=== PATIENT | female | born 1935 | race Caucasian/White ===

== ENCOUNTER 2023-01-24 10:10 | Emergency (ER) | payer MEDICARE, BC, SELFPAY ==
--- NOTE | ~2023-01-24 | CT_ITS ---
EXAMINATION: CT abdomen pelvis w IV con CLINICAL INFORMATION: Reason for Exam bilateral lower abdominal pain, diarrhea COMPARISON: Prior CT scan from 2013 TECHNIQUE: Multidetector volumetric imaging was performed from the superior aspect of the liver through the pubic symphysis 85 mL Omnipaque 350 injected Sagittal and coronal reformatted images were obtained on the technologist's workstation. This CT examination was performed using dose optimization techniques as appropriate, variously including the following: *Automated exposure control *Adjustment of mA and/or kV according to patient size (this includes techniques or standardized protocols for targeted exams where dose is matched to indication/reason for exam; i.e. extremities or head) *Use of iterative reconstruction technique DLP: 467 mGy-cm FINDINGS: LOWER THORAX: There is scar, subsegmental atelectasis at left lung base. Included lung bases otherwise are clear. HEPATOBILIARY: There is tiny 4 mm hypodensity in the right lobe of the liver, too small to characterize, commonly found to be evolving cysts. No suspicious solid liver mass. GALLBLADDER: Gallbladder unremarkable. SPLEEN: Spleen is normal in size. PANCREAS: No focal mass or ductal dilatation. STOMACH AND GASTROINTESTINAL TRACT: Stomach is grossly unremarkable. There are suture line in the colon from prior hemicolectomy. There is fat stranding surrounding loops of small bowel in the left lower quadrant adjacent to the ileocolic anastomosis concerning for ileitis which could be infection or inflammatory. There is no evidence of obstruction or dilatation of the small bowel loops. Please refer to Wilkes image. There is no abscess or loculated the fluid collection. ADRENALS: No adrenal nodules. KIDNEYS/URETERS: No hydronephrosis, stones or solid mass lesions. URINARY BLADDER: Partially decompressed. PELVIC VISCERA: Unremarkable PERITONEUM: There is no free air or fluid. LYMPH NODES: No lymphadenopathy. VASCULAR:Abdominal aorta normal in size, no aneurysm found. BONES, ABDOMINAL WALL AND SOFT TISSUES: Spondylosis of dorsal spine. No fractures. No destructive bone lesion. CT/CT abdomen pelvis w IV con IMPRESSION: * There is fat stranding surrounding loops of small bowel in the left lower quadrant adjacent to the ileocolic anastomosis concerning for ileitis which could be infection or inflammatory. There is no evidence of obstruction or abscess. Clinical correlation and follow-up recommended. * Postsurgical changes from prior hemicolectomy. * Other noncritical findings include spondylosis of the dorsal spine, tiny hypodensity in the liver too small to characterize, commonly found to be evolving cysts, scarring/subsegmental atelectasis at left lung base..
[2023-01-24 11:27] VITALS: BP 151/87; PULSE 88; RESP 16; TEMP 36.4; O2SAT 97; BMI 26.6
--- NOTE | 2023-01-24 11:30 | ED.GENADULT ---
HPI - General Adult General Chief complaint: Abdominal Pain Stated complaint: abd pain Time Seen by Provider: 01/24/23 11:41 Source: patient Mode of arrival: ambulatory Limitations: no limitations History of Present Illness HPI narrative: Patient is an 87-year-old female with history of colon cancer in remission, hysterectomy, parotid tumor removal, frequent UTIs presenting with lower abdominal pain and diarrhea. Patient reports that she recently moved to the area from [place], does not have a primary care provider established this area yet. One week ago began to have intermittent isolated episodes of diarrhea. Last night developed lower abdominal pain and diarrhea approximately 4 times per hour. States initially stool was soft, then progressed to watery diarrhea. Reports urge to have a bowel movement but has not had diarrhea recently this morning. Denies fevers. Reports nausea but denies vomiting. Denies hematochezia or melena. Describes pain as similar to when she had adhesions following her hysterectomy. Recently took Cipro in October for UTI. He denies chest pain or shortness of breath. Denies weakness, dizziness, syncope. Denies dysuria, hematuria, any other urinary symptoms. Denies back or flank pain. Has been able to pass gas. MD complaint: Lower abdominal pain, diarrhea Onset (ago): hour(s) Location: abdomen Radiation: non-radiation Severity: moderate Severity scale (1-10): 6 Quality: stabbing Pain Consistency: constant Relieving factors: none Exacerbating factors: none Associated symptoms: nausea/vomiting (Reports nausea, denies vomiting, reports diarrhea) Treatments prior to arrival: none Related Data Previous Rx's Medication Instructions Recorded ciprofloxacin HCl 250 mg tablet 250 mg PO BID #6 tabs 01/24/23 (Cipro) Allergies Allergy/AdvReac Type Severity Reaction Status Date / Time cephalexin [From Keflex] Allergy Unknown Verified 01/24/23 11:27 clindamycin Allergy Unknown Verified 01/24/23 11:27 erythromycin base Allergy Unknown Verified 01/24/23 11:27 mirabegron Allergy Unknown Verified 01/24/23 11:27 nitrofurantoin Allergy Unknown Verified 01/24/23 11:27 [From Macrodantin] Sulfa (Sulfonamide Allergy Unknown Verified 01/24/23 11:27 Antibiotics) Jmvffik-[id number]-[id number] Reductase AdvReac Fatigued Verified 01/24/23 11:24 Inhibitor Review of Systems Review of Systems: As per HPI. Yes all other systems are reviewed and are negative Constitutional: Constitutional: Reports as per HPI [facility] Social History Social History Advance Directives: No Physical Exam ED Vital Signs: Vital Signs - 24 hr 01/24/23 11:27 01/24/23 15:03 Temperature 97.6 F Pulse Rate 88 79 Respiratory Rate 16 14 Blood Pressure 151/87 H 136/58 L Pulse Oximetry 97 98 Oxygen Delivery Method Room Air BMI result Body Mass Index 26.6 Vital signs have been reviewed and appear to be correct. Blood pressure elevated. Heart rate normal. Respiratory rate normal. Temperature normal. Oxygen saturation normal. Const General: cooperative, healthy appearing and no acute distress Orientation/consciousness: oriented to person, oriented to place, oriented to time and patient oriented x3 Limitations: no limitations HENMT Head: Yes normocephalic and Yes atraumatic Ears: external ears normal General nose exam: Normal external nose present Mouth: oropharynx normal and moist mucous membranes Throat: Yes uvula midline Eyes Pupils: Equal, round and reactive pupils present Neck Neck: Yes normal visual inspection and Yes supple Resp Effort & Inspection: normal respiratory effort and able to speak in complete sentences Auscultation: clear to auscultation bilaterally Cardio Rate: regular rate Rhythm: regular rhythm Heart sounds: S1 normal heart sound present and S2 normal heart sound present GI Inspection: Yes normal to inspection Palpation (GI): Soft to palpation, Tenderness to palpation present (GI) in the LLQ and in the RLQ, no guarding and No Rebound tenderness present Auscultation: normoactive bowel sounds General: Yes no CVA tenderness Back/Spine/Pelvis Back: no CVA tenderness Skin General skin exam: elasticity normal and turgor normal Neuro General: oriented to person, oriented to place, oriented to time, patient oriented x3, moves all extremities, no focal motor deficits and CN's II-XI intact bilaterally Cranial nerves: Yes Equal, round and reactive pupils present Cognition (Neuro): normal cognition Extrem General: Yes full ROM, Yes no pedal edema and Yes no calf tenderness Psych Mental Status: mental status grossly normal Affect: normal affect Thought process: Normal thought process present Course Course Course Narrative: RME- 87-year-old female presents for evaluation of periumbilical abdominal pain and diarrhea. She reports the diarrhea initially side 1 week ago but got much worse last night. Denies any recent antibiotic use. Patient is well-appearing in triage, labs and UA ordered. 13:30 UA positive for 3+ leukocytes, >50 WBCs, awaiting CT results. 14:34 FINDINGS: LOWER THORAX: There is scar, subsegmental atelectasis at left lung base. Included lung bases otherwise are clear. HEPATOBILIARY: There is tiny 4 mm hypodensity in the right lobe of the liver, too small to characterize, commonly found to be evolving cysts. No suspicious solid liver mass. GALLBLADDER: Gallbladder unremarkable. SPLEEN: Spleen is normal in size. PANCREAS: No focal mass or ductal dilatation. STOMACH AND GASTROINTESTINAL TRACT: Stomach is grossly unremarkable. There are suture line in the colon from prior hemicolectomy. There is fat stranding surrounding loops of small bowel in the left lower quadrant adjacent to the ileocolic anastomosis concerning for ileitis which could be infection or inflammatory. There is no evidence of obstruction or dilatation of the small bowel loops. Please refer to Wilkes image. There is no abscess or loculated the fluid collection. ADRENALS: No adrenal nodules. KIDNEYS/URETERS: No hydronephrosis, stones or solid mass lesions. URINARY BLADDER: Partially decompressed. PELVIC VISCERA: Unremarkable PERITONEUM: There is no free air or fluid. LYMPH NODES: No lymphadenopathy. VASCULAR:Abdominal aorta normal in size, no aneurysm found. BONES, ABDOMINAL WALL AND SOFT TISSUES: Spondylosis of dorsal spine. No fractures. No destructive bone lesion. CT/CT abdomen pelvis w IV con IMPRESSION: ? *? There is fat stranding surrounding loops of small bowel in the left lower quadrant adjacent to the ileocolic anastomosis concerning for ileitis which could be infection or inflammatory. There is no evidence of obstruction or abscess. Clinical correlation and follow-up recommended. ? *? Postsurgical changes from prior hemicolectomy. ? *? Other noncritical findings include spondylosis of the dorsal spine, tiny hypodensity in the liver too small to characterize, commonly found to be evolving cysts, scarring/subsegmental atelectasis at left lung base. 15:33 Awaiting results of magnesium add on. 16:17 Magnesium is within normal limits. Feel patient is stable for discharge home. Will prescribe Cipro for UTI as patient states this is typically what she uses and works well for her. Instructed patient to ensure adequate intake of fluids with electrolytes. Instructed patient to follow-up with PCP this week. Return precautions discussed at bedside, all results discussed and all questions answered, patient agreeable to plan. Medications Administered Discontinued Medications Generic Name Dose Route Start Last Admin Trade Name Swapna PRN Reason Stop Dose Admin Iohexol 100 ml 01/24/23 13:06 01/24/23 13:07 Iohexol 350 Mg/Ml 100 Ml Infus..Btl IV 01/24/23 13:07 85 ml ONCE ONE Administration Ondansetron HCl 4 mg 01/24/23 12:03 01/24/23 12:13 Ondansetron Odt 4 Mg Tab.Rapdis TRANSLINGU 01/24/23 12:04 4 mg ONCE ONE Administration Medical Decision Making Medical Decision Making [facility] Narrative: Patient is an 87-year-old female with history of colon cancer in remission, hysterectomy, parotid tumor removal, frequent UTIs presenting with lower abdominal pain and diarrhea. On exam patient is awake, A+Ox3, in no acute distress, elevated BP, otherwise VS WNL, LS CTA throughout, abdomen soft, TTP bilateral lower quadrants. Concern for diverticulitis, UTI, C. diff, malignancy/mass. Less likely appendicitis. Unlikely AAA rupture, mesenteric ischemia, perforated viscous. Plan: labs, UA, GI panel, C. diff, CT abdomen pelvis Please refer to course for remaining clinical decision making. Differential Diagnosis Differential Diagnoses: The differential diagnosis associated with the presentation includes Asn above. Admission/Observation Consideration of admission/observation: Escalation of care including admission/observation considered Lab Data [facility] Lab Attestation statement: I reviewed the patient's lab results. 01/24/23 11:54 01/24/23 11:54 Labs: Lab Results 01/24/23 01/24/23 01/24/23 Range/Units 11:54 11:54 13:24 WBC 6.4 (4.8-10.8) X10*3/uL RBC 4.23 (4.20-5.50) X10*6/uL Hgb 13.5 (12.0-16.0) g/dl Hct 38.3 (37.0-47.0) % MCV 90.5 (80.0-98.0) fL MCH 31.9 (27.0-33.0) pg MCHC 35.2 H (31.0-35.0) g/dl RDW 13.3 (11.0-16.0) % Plt Count 258 (160-400) X10*3/uL MPV 9.2 L (9.4-12.3) fL Immature Gran % (Auto) 0.2 (0.0-0.4) % Neut % (Auto) 74.4 H (45-73) % Lymph % (Auto) 15.7 L (20-40) % [place] % (Auto) 7.5 (2-11) % Eos % (Auto) 1.9 (0-4) % Baso % (Auto) 0.3 (0-2) % Lymph # (Auto) 1.0 L (1.2-4.9) X10*3/uL [place] # (Auto) 0.5 (0.1-1.2) X10*3/uL Eos # (Auto) 0.1 (0.0-0.4) X10*3/uL Baso # (Auto) 0.0 (0.0-0.2) X10*3/uL Abs Immat Gran (auto) 0.01 (0.00-0.03) X10*3/uL Absolute Neuts (auto) 4.7 (2.0-8.3) x10*3/uL Absolute Nucleated RBC 0.000 (0.0-0.012) X10*3/uL Nucleated RBC % (auto) 0.0 (0.0-0.2) /100WBC Sodium 139 (135-145) mmol/L Potassium 4.3 (3.3-5.1) mmol/L Chloride 105 (96-108) mmol/L Carbon Dioxide 24 (22-29) mmol/L Anion Gap 14 (12-20) BUN 13 (9-16) mg/dL Creatinine 0.59 (0.5-1.4) mg/dL Estim Creat Clear Calc 63.3 Estimated GFR > 60 Random Glucose 95 (60-115) mg/dL Calcium 9.2 (8.4-10.2) mg/dL Magnesium 1.8 (1.6-2.6) mg/dL Total Bilirubin 1.1 H (0.0-1.0) mg/dL AST 17 (5-31) U/L ALT 14 (0-31) U/L Alkaline Phosphatase 57 (39-117) U/L Total Protein 6.3 L (6.5-8.0) g/dL Albumin 3.9 (3.5-5.0) g/dL Lipase 63 (8-78) U/L Urine Color Yellow Urine Appearance Cloudy Urine pH 7.5 (5.0-9.0) Ur Specific [place] 1.020 (1.005-1.025) Urine Protein Negative (Neg-Trace) mg/dL Urine Glucose (UA) Negative (Negative) mg/dL Urine Ketones Negative (Negative) mg/dL Urine Blood Trace H (Negative) Urine Nitrite Negative (Negative) Ur Leukocyte Esterase Large (3+) H (Negative) Urine RBC 0-2 (0-2) /HPF Urine WBC >50 H (0-5) /HPF Ur Squamous Epith Cells 0-2 (0-2) /HPF Urine Bacteria Trace (None Seen) Hyaline Casts 0-2 (0-2) /LPF Independent Interpretation I performed an independent interpretation of an: CT Scan Interpretation: I independently reviewed the CT scan and agree with the radiologist's interpretation. External Record Review External record reviewed: Inpatient record, Office record and Outpatient record Discharge Plan Discharge Clinical Impression: Urinary tract infection, Ileitis Patient Disposition: Home, Self-Care Instructions: Urinary Tract Infection in Women (DC), Acute Diarrhea (ED) Additional Instructions: Your urinalysis showed evidence of a urinary tract infection. You are being treated with an antibiotic, please take the full course of medication as prescribed. Your CT scan shows evidence of ileitis which is inflammation of your small intestine. Please be sure to drink plenty of fluids with electrolytes such as Gatorade, Powerade, or Pediatlyte. Return to the emergency department if you develop worsening pain, persistent diarrhea, fever 100.4? F or greater, back or flank pain, inability to urinate, chest pain, shortness of breath, dizziness or lightheadedness, fainting, or any other concerning symptoms. Prescriptions: New ciprofloxacin HCl [Cipro] 250 mg tablet 250 mg PO BID Qty: 6 0RF Referrals: [facility] [Provider Group]
[2023-01-24 11:58] LABS: MANUAL DIFF FLAG NO
[2023-01-24 11:59] LABS: Basophils Percent Auto 0.3 % (0-2); Eosinophils Absolute Auto 0.1 X10*3/uL (0.0-0.4); Eosinophils Percent Auto 1.9 % (0-4); Hematocrit 38.3 % (37.0-47.0); Hemoglobin 13.5 g/dl (12.0-16.0); Imm Gran Abs Auto 0.01 X10*3/uL (0.00-0.03); Imm Gran Pct Auto 0.2 % (0.0-0.4); Lymphocytes Percent Auto 15.7 % (20-40); Mean Corpuscular HGB Conc 35.2 g/dl (31.0-35.0); Mean Corpuscular Hemoglobin 31.9 pg (27.0-33.0); Mean Corpuscular Volume 90.5 fL (80.0-98.0); Mean Platelet Volume 9.2 fL (9.4-12.3); Monocytes Absolute Auto 0.5 X10*3/uL (0.1-1.2); Monocytes Percent Auto 7.5 % (2-11); Neutrophils Absolute Auto 4.7 x10*3/uL (2.0-8.3); Neutrophils Percent Auto 74.4 % (45-73); Platelet Count 258 X10*3/uL (160-400); Red Blood Count 4.23 X10*6/uL (4.20-5.50); Red Cell Distribution Width 13.3 % (11.0-16.0); White Blood Count 6.4 X10*3/uL (4.8-10.8)
[2023-01-24] MEDS: Ondansetron ODT 4 MG TAB.RAPDIS TRANSLINGU (12:13)
[2023-01-24 12:18] LABS: Alanine Aminotransferase 14 U/L (0-31); Albumin Level 3.9 g/dL (3.5-5.0); Alkaline Phosphatase 57 U/L (39-117); Anion Gap 14 (12-20); Aspartate Amino Transferase 17 U/L (5-31); Bilirubin Total 1.1 mg/dL (0.0-1.0); Blood Urea Nitrogen 13 mg/dL (9-16); Calcium 9.2 mg/dL (8.4-10.2); Carbon Dioxide 24 mmol/L (22-29); Chloride 105 mmol/L (96-108); Creatinine Clr Calc Pharmacy 63.3; Estimated Glomerular Filt Rate > 60; Glucose Random 95 mg/dL (60-115); Lipase 63 U/L (8-78); Potassium 4.3 mmol/L (3.3-5.1); Sodium 139 mmol/L (135-145); Total Protein 6.3 g/dL (6.5-8.0)
[2023-01-24] MEDS: iohexoL 350 MG/ML 100 ML INFUS..BTL IV (13:07)
[2023-01-24 13:35] LABS: Appearance Urine Cloudy; Color Urine Yellow; Glucose Urine UA Negative (Negative); Leukocyte Esterase Urine Large (3+) (Negative); Nitrite Urine Negative (Negative); PH 7.5 (5.0-9.0); UMIC TRIGGER UACC YES; Urine Blood Trace (Negative); Urine Ketones Negative (Negative); Urine Protein Negative (Neg-Trace)
[2023-01-24 13:37] LABS: Bacteria Urine Trace (None Seen); Hyaline Casts Urine 0-2 /LPF (0-2); RBC Urine 0-2 /HPF (0-2); Squamous Epithelial Cell Urine 0-2 /HPF (0-2); UACC Culture Trigger YES; WBC Urine >50 /HPF (0-5)
[2023-01-24 15:03] VITALS: BP 136/58; PULSE 79; RESP 14; O2SAT 98
[2023-01-24 16:11] LABS: Magnesium 1.8 mg/dL (1.6-2.6)
== END 2023-01-24 16:33 | disposition home or self-care (01) ==
PROVIDERS: Physician Assistant; Registered Nurse Emergency; Emergency Provider Internal Medicine
DX: N39.0 Urinary tract infection, site not specified (principal); B96.20 Unspecified Escherichia coli [E. coli] as the cause of diseases classified elsewhere; K52.9 Noninfective gastroenteritis and colitis, unspecified; Z87.440 Personal history of urinary (tract) infections
CPT/HCPCS: 36415; 74177; 80053; 81001; 83690; 83735; 85025; 87086; 87088; 87186; 99284; Q9967

== ENCOUNTER 2023-04-26 11:33 | Outpatient (REF) | payer MEDICARE, BC, SELFPAY ==
[2023-04-26 11:55] LABS: MANUAL DIFF FLAG NO
[2023-04-26 12:23] LABS: Basophils Percent Auto 0.9 % (0-2); Eosinophils Absolute Auto 0.1 X10*3/uL (0.0-0.4); Hematocrit 38.8 % (37.0-47.0); Hemoglobin 13.5 g/dl (12.0-16.0); Imm Gran Abs Auto 0.01 X10*3/uL (0.00-0.03); Imm Gran Pct Auto 0.2 % (0.0-0.4); Lymphocytes Absolute Auto 1.3 X10*3/uL (1.2-4.9); Mean Corpuscular HGB Conc 34.8 g/dl (31.0-35.0); Mean Corpuscular Hemoglobin 31.9 pg (27.0-33.0); Mean Corpuscular Volume 91.7 fL (80.0-98.0); Mean Platelet Volume 10.4 fL (9.4-12.3); Monocytes Absolute Auto 0.5 X10*3/uL (0.1-1.2); Monocytes Percent Auto 12.2 % (2-11); Neutrophils Absolute Auto 2.4 x10*3/uL (2.0-8.3); Neutrophils Percent Auto 54.7 % (45-73); Platelet Count 285 X10*3/uL (160-400); Red Blood Count 4.23 X10*6/uL (4.20-5.50); Red Cell Distribution Width 12.2 % (11.0-16.0); White Blood Count 4.3 X10*3/uL (4.8-10.8)
[2023-04-26 12:24] LABS: Appearance Urine Clear; Color Urine Yellow; Glucose Urine UA Negative (Negative); Leukocyte Esterase Urine Large (3+) (Negative); Nitrite Urine Negative (Negative); Specific Gravity - Urine <= 1.005 (1.005-1.025); UMIC TRIGGER UACC YES; Urine Blood Negative (Negative); Urine Ketones Negative (Negative); Urine Protein Negative (Neg-Trace)
[2023-04-26 12:39] LABS: Alanine Aminotransferase 15 U/L (0-31); Albumin Level 4.1 g/dL (3.5-5.0); Alkaline Phosphatase 54 U/L (39-117); Anion Gap 13 (12-20); Aspartate Amino Transferase 18 U/L (5-31); Bilirubin Total 0.6 mg/dL (0.0-1.0); Blood Urea Nitrogen 13 mg/dL (9-16); Calcium 10.2 mg/dL (8.4-10.2); Carbon Dioxide 26 mmol/L (22-29); Chloride 104 mmol/L (96-108); Cholesterol 228 mg/dL (<200); Estimated Glomerular Filt Rate > 60; Glucose Fasting 86 mg/dL (60-99); HDL Cholesterol 56 mg/dL (>40); LDL Cholesterol Calculated 155 mg/dL (<100); Potassium 4.1 mmol/L (3.3-5.1); Sodium 139 mmol/L (135-145); Triglycerides 89 mg/dL (<150)
[2023-04-26 15:35] LABS: Bacteria Urine 4+ (None Seen); Hyaline Casts Urine 0-2 /LPF (0-2); RBC Urine 0-2 /HPF (0-2); Squamous Epithelial Cell Urine 0-2 /HPF (0-2); UACC Culture Trigger YES
== END 2023-04-26 11:34 | disposition home or self-care (01) ==
LOC: HO.LNP 11:33
PROVIDERS: Visit Provider Internal Medicine
DX: I10 Essential (primary) hypertension (principal); R82.90 Unspecified abnormal findings in urine
CPT/HCPCS: 80053; 80061; 81001; 81003; 85025; 87086; 87088; 87186

== ENCOUNTER 2023-07-16 10:27 | Outpatient (REF) | payer MEDICARE, BC, SELFPAY ==
--- NOTE | ~2023-07-16 | MM_ITS ---
EXAMINATION: MM SCREENING DIGITAL BREAST TOMOSYNTHESIS, BILATERAL CLINICAL INFORMATION: Screening. Asymptomatic. The patient is status post right mastectomy. COMPARISON: Mammography: This study is compared with prior exams dating back to 2018. TECHNIQUE: Digital breast tomosynthesis is performed in both the craniocaudal and mediolateral oblique views along with computer-aided detection (CAD). Synthesized 2D images are generated from the tomosynthesis. FINDINGS: There are scattered areas of fibroglandular density (ACR BI-RADS breast composition Category b). There are no significant masses, abnormal calcifications, or other abnormalities. There is a tissue marker present in the upper outer quadrant of the left breast from prior benign percutaneous biopsy. MM/MM tomosynthesis screening LT IMPRESSION: No mammographic evidence of malignancy. ASSESSMENT: BI-RADS BI-RADS 2 - Benign Findings RECOMMENDATION: Routine annual mammography screening. 1 year F/U This examination should not preclude the clinical evaluation of a suspicious palpable abnormality. This patient's information was entered into a reminder system with a target due date for their next mammogram.
== END 2023-07-16 10:28 | disposition home or self-care (01) ==
LOC: HO.MAMMO 10:27
PROVIDERS: Absent Provider Obstetrics & Gynecology; PCP Internal Medicine; Visit Provider Internal Medicine
DX: Z12.31 Encounter for screening mammogram for malignant neoplasm of breast (principal)
CPT/HCPCS: 77063; 77067

== ENCOUNTER → 2023-07-16 11:30 | Outpatient (BNV) | payer MEDICARE, BC, SELFPAY | PROVIDERS: Absent Provider Obstetrics & Gynecology; PCP Internal Medicine; Visit Provider Radiology Diagnostic Radiology | DX: Z12.31 Encounter for screening mammogram for malignant neoplasm of breast (principal) | CPT/HCPCS: 77063; 77067 ==

== ENCOUNTER 2023-07-20 12:32 | Outpatient (AMB) | payer MEDICARE, BC, SELFPAY ==
--- NOTE | 2023-07-20 12:48 | A.OFFVIS_ITS ---
Intake Intake Visit Reasons: Recurrent UTI's Intake Note: NEW Patient presents today due to Recurrent UTI's: Meds- None Allergies to Antibiotic- No Known Allergies Blood Thinner- None PVR- 15 mL Paperback Machine Operator Required: No Accompanied by: Self / Same As Patient Allergies cephalexin [From Keflex] Allergy (Verified 07/23/23 10:34) Unknown clindamycin Allergy (Verified 07/23/23 10:34) Unknown erythromycin base Allergy (Verified 07/23/23 10:34) Unknown mirabegron Allergy (Verified 07/23/23 10:34) Unknown nitrofurantoin [From Macrodantin] Allergy (Verified 07/23/23 10:34) Unknown Sulfa (Sulfonamide Antibiotics) Allergy (Verified 07/23/23 10:34) Unknown Kkyslht-[id number]-AmJ Reductase Inhibitor Adverse Reaction (Verified 07/23/23 10:34) Fatigued HPI HPI Comments History of Present Illness Details Malena is an 88-year-old female who presents today to the office to establish as a new patient for an evaluation for recurrent UTI's 07/20/2023? Patient has a past medical history significant for uterine cancer. She states that she was referred to the urology office by her PCP. Patient states that she has had urinary tract infections in the past. She has had hysterectomy. The patient complains of intractible urinary urgency/frequency and states she has tried multiple meds in the past. I have discussed sacral neuromodulation as an alternative treatment option regarding this problem. I have reviewed her chart which included a CAT scan of the abdomen/pelvis which noted no kidney stones or solid renal calculi; urinary bladder was partially decompressed. I reviewed the urine culture results from 04/26/2023 revealed serratia >>> 100,000 colonies noted. Plan:? Renal US was ordered. Follow-up in office cystoscopy, pelvic exam at that time. 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 Mother No problems noted. Social History Household Members: None Housing: Assisted Living Facility Alcohol intake: current Alcohol intake frequency: does not drink Patient Tobacco Use Status: Never used Tobacco Current occupational status: retired Review of Systems Const All systems reviewed & are unremarkable except as noted in HPI and below Reports no additional complaints Eyes Reports no additional complaints ENT Reports no additional complaints Card Denies dyspnea Resp Denies cough and Denies dyspnea GI Reports no additional complaints Reports no additional complaints Musc Reports no additional complaints Skin/Breast Denies rash and Denies unusual bruising Neuro Reports no additional complaints Psych Reports no additional complaints Endo Reports no additional complaints [place]/Lymph Reports no additional complaints Aller/Immun Reports no additional complaints Physical Exam Const General: cooperative, healthy appearing and no acute distress Orientation/consciousness: patient oriented x3 HEENT Head: Yes normal to inspection, Yes normocephalic and Yes atraumatic Eyes Conjunctivae: conjunctivae normal Neck Neck: Yes normal visual inspection and Yes trachea midline Chest Chest palpation & inspection: normal inspection of the chest Resp Effort & Inspection: normal respiratory effort Cardio Rate: regular rate GI Inspection: Yes normal to inspection Palpation (GI): Soft to palpation Skin General skin exam: no rashes or lesions noted Neuro General: patient oriented x3 Psych Appearance: grossly normal Results Reviewed Results Reviewed: Date of Service: 01/24/23 EXAMINATION: CT abdomen pelvis w IV con CLINICAL INFORMATION: Reason for Exam bilateral lower abdominal pain, diarrhea COMPARISON: Prior CT scan from 2013 FINDINGS: LOWER THORAX: There is scar, subsegmental atelectasis at left lung base. Included lung bases otherwise are clear. HEPATOBILIARY: There is tiny 4 mm hypodensity in the right lobe of the liver, too small to characterize, commonly found to be evolving cysts. No suspicious solid liver mass. GALLBLADDER: Gallbladder unremarkable. SPLEEN: Spleen is normal in size. PANCREAS: No focal mass or ductal dilatation. STOMACH AND GASTROINTESTINAL TRACT: Stomach is grossly unremarkable. There are suture line in the colon from prior hemicolectomy. There is fat stranding surrounding loops of small bowel in the left lower quadrant adjacent to the ileocolic anastomosis concerning for ileitis which could be infection or inflammatory. There is no evidence of obstruction or dilatation of the small bowel loops. Please refer to Wilkes image. There is no abscess or loculated the fluid collection. ADRENALS: No adrenal nodules. KIDNEYS/URETERS: No hydronephrosis, stones or solid mass lesions. URINARY BLADDER: Partially decompressed. PELVIC VISCERA: Unremarkable PERITONEUM: There is no free air or fluid. LYMPH NODES: No lymphadenopathy. VASCULAR:Abdominal aorta normal in size, no aneurysm found. BONES, ABDOMINAL WALL AND SOFT TISSUES: Spondylosis of dorsal spine. No fractures. No destructive bone lesion. IMPRESSION: * There is fat stranding surrounding loops of small bowel in the left lower quadrant adjacent to the ileocolic anastomosis concerning for ileitis which could be infection or inflammatory. There is no evidence of obstruction or abscess. Clinical correlation and follow-up recommended. * Postsurgical changes from prior hemicolectomy. Urine Culture Final 04/28/23 Organism 1 Serratia marcescens Quant > 100,000 cfu/mL S marcesc M.I.C. RX --------- --- Ceftriaxone <=0.25 S Gentamicin <=1 S Levofloxacin 0.5 S Trimethoprim/Sulfamethoxazole <=20 S Assessment & Plan Assessment & Plan (1) Recurrent UTI: Code(s): N39.0 - Urinary tract infection, site not specified (2) Frequent urinary incontinence: Code(s): N39.498 - Other specified urinary incontinence (3) Urinary urgency: Code(s): R39.15 - Urgency of urination Plan Renal US was ordered. Follow-up in office cystoscopy, pelvic exam at that time Patient Instructions: The patient had an opportunity to ask questions regarding treatment plan. All questions were answered. Imaging, Laboratory studies and physical exam results were discussed and reviewed in detail. No major barriers to understanding were identified. The patient expressed understanding and agreement with the above treatment plan.? ? ? The patient is aware they should contact our office by phone for worsening of their current condition or the appearance of new symptoms. Compliance is encouraged with any medications and followup testing that is ordered.? ? ? It is a privilege to be allowed the opportunity to participate in the urologic care of your patient. If you have any questions or concerns regarding treatment for the above conditions please do not hesitate to contact me. The office telephone contact is [phone].? ? ? This note is constructed in part using voice recognition software. While every effort has been made to ensure accuracy home economist errors may have been included.? ? ? Yours sincerely,? ? ? Milo Callahan MD? Coding Level of Care Code New Pt Level 4 (77518) Diagnoses Recurrent UTI N39.0 Frequent urinary incontinence N39.498 Urinary urgency R39.15
== END 2023-07-20 14:15 | disposition home or self-care (01) ==
PROVIDERS: Visit Provider Urology
DX: N39.0 Urinary tract infection, site not specified (principal); N39.498 Other specified urinary incontinence; R39.15 Urgency of urination
CPT/HCPCS: 99204

== ENCOUNTER → 2023-07-20 12:32 | Outpatient (BNVA) | payer MEDICARE, BC, SELFPAY | PROVIDERS: Visit Provider Urology | DX: N39.0 Urinary tract infection, site not specified (principal); N39.498 Other specified urinary incontinence; R39.15 Urgency of urination | CPT/HCPCS: 99202 ==

== ENCOUNTER 2023-07-23 10:24 | Outpatient (AMB) | payer MEDICARE, BC, SELFPAY ==
[2023-07-23 10:28] VITALS: BP 130/86; BMI 28.3
--- NOTE | 2023-07-23 10:28 | MHC.OFFVIS ---
Intake Vital Signs 07/23/23 10:28 Height 5 ft 3 in Weight 160 lb BMI 28.3 BP 130/86 Intake Visit Reasons: uterine cancer/PCP Referral/DO NOT RS Weekend Anchor Required: No Information Interpreted: non-clinical & clinical Gasoline Service Attendant: Gasoline Service Attendant Present (Roxana Brandt ORDONEZ) Accompanied by: Self / Same As Patient Allergies cephalexin [From Keflex] Allergy (Verified 07/23/23 10:34) Unknown clindamycin Allergy (Verified 07/23/23 10:34) Unknown erythromycin base Allergy (Verified 07/23/23 10:34) Unknown mirabegron Allergy (Verified 07/23/23 10:34) Unknown nitrofurantoin [From Macrodantin] Allergy (Verified 07/23/23 10:34) Unknown Sulfa (Sulfonamide Antibiotics) Allergy (Verified 07/23/23 10:34) Unknown Femgfzy-ZGR-RvA Reductase Inhibitor Adverse Reaction (Verified 07/23/23 10:34) Fatigued Post menopausal: Yes HPI HPI Comments History of Present Illness Details Presenting for follow-up regarding endometrial cancer status post hysterectomy bilateral salpingo-oophorectomy , stage II endometrial cancer 10 years ago. Since then the patient doing well with no complaint, no vaginal bleeding pelvic pain or any other concerns. CT scan done in 02/09 for different indication showed pelvic viscera within normal Last mammogram was couple of weeks ago, report not available No previous DEXA scan [facility] Medical History Depression screen Colon cancer screening Unilateral primary osteoarthritis, unspecified knee Acute cystitis without hematuria H/O malignant neoplasm of parotid gland H/O cancer of uterus Candidiasis, unspecified Essential (primary) hypertension Surgical History Hx of hysterectomy Family History Father No problems noted. Mother No problems noted. Social History Household Members: None Housing: Assisted Living Facility Alcohol intake: current Alcohol intake frequency: does not drink Patient Tobacco Use Status: Never used Tobacco Current occupational status: retired Review of Systems Const All systems reviewed & are unremarkable except as noted in HPI and below Card Reports as per HPI and Reports no additional complaints Resp Reports as per HPI and Reports no additional complaints GI Reports as per HPI and Reports no additional complaints Reports as per HPI Physical Exam Vital Signs: Last Vital Signs BP 130/86 07/23/23 10:28 BMI result Body Mass Index 28.3 Const General: cooperative, healthy appearing and comfortable General: Yes bladder normal to palpation External Female Exam: No lesion Speculum Exam - Vagina: normal appearance of the vagina, normal vaginal discharge and not erythematous Speculum Exam - Cervix: Cervix absent Bimanual exam- vagina & uterus: bladder normal to palpation and uterus absent Bimanual Exam- Adnexa, other: Other (No masses detected) Assessment & Plan Assessment & Plan (1) Gynecologic exam normal: Code(s): Z01.419 - Encounter for gynecological examination (general) (routine) without abnormal findings Plan: Co testing not indicated, mammogram recently done, report not available yet. Counseled the patient about the recommended dietary allowance of 1200 mg of Calcium & 800 IU of vitamin D. Will order DEXA scan . The patient was instructed to perform monthly self-breast exams and to call in case of vaginal bleeding, abdominal pelvic pain or any other concerns can to schedule a 2 week DEXA scan follow-up appointment and an annual exam in a year; All questions answered and the patient verbalized understanding. Orders: Orders XR DEXA axial skeleton Today Z78.0 - Asymptomatic menopausal state Coding Level of Care Code New Pt Prev Care >65yr (85185) Diagnoses Gynecologic exam normal Z01.419
== END 2023-07-23 11:03 | disposition home or self-care (01) ==
LOC: HO.HWS 10:24
PROVIDERS: PCP Internal Medicine; Visit Provider Obstetrics & Gynecology
DX: Z01.419 Encounter for gynecological examination (general) (routine) without abnormal findings (principal)
CPT/HCPCS: G0101

== ENCOUNTER → 2023-07-23 10:24 | Outpatient (BNVA) | payer MEDICARE, BC, SELFPAY | PROVIDERS: PCP Internal Medicine; Visit Provider Obstetrics & Gynecology | DX: Z01.419 Encounter for gynecological examination (general) (routine) without abnormal findings (principal) | CPT/HCPCS: G0101 ==

== ENCOUNTER 2023-08-21 15:50 | Outpatient (REF) | payer MEDICARE, BC, SELFPAY ==
--- NOTE | ~2023-08-21 | US_ITS ---
EXAMINATION: US RETROPERITONEAL LIMITED (RENAL ONLY) CLINICAL INFORMATION: Urinary tract infection, site not specified. COMPARISON: CT abdomen and pelvis 01/24/2023. Ultrasound kidneys and bladder 06/01/2015. TECHNIQUE: Real-time imaging of the kidneys. Limited visualization due to bowel gas. FINDINGS: RIGHT KIDNEY: 10.8 x 4.8 x 5.7 cm (SAG x AP x TRV). No hydronephrosis. No renal calculi. Renal cortical thickness is normal. Limited visualization. LEFT KIDNEY: 10.6 x 5.4 x 5.0 cm (SAG x AP x TRV). No hydronephrosis. No renal calculi. Renal cortical thickness is normal. Limited visualization. Medial 0.6 cm cyst with benign features. There is no indication for follow-up imaging. US/US renal BI IMPRESSION: There is a 0.6 cm left renal cyst with benign features. There is no indication for follow-up imaging.
== END 2023-08-21 15:51 | disposition home or self-care (01) ==
LOC: HO.US 15:50
PROVIDERS: PCP Internal Medicine; Visit Provider Urology
DX: N39.0 Urinary tract infection, site not specified (principal)
CPT/HCPCS: 76775

== ENCOUNTER 2023-08-24 13:29 | Outpatient (REF) | payer MEDICARE, BC, SELFPAY | END 2023-08-24 13:30 | disposition home or self-care (01) | LOC: HO.MAMMO 13:29 | PROVIDERS: PCP Internal Medicine; Visit Provider Obstetrics & Gynecology | DX: Z13.820 Encounter for screening for osteoporosis (principal); Z78.0 Asymptomatic menopausal state | CPT/HCPCS: 77080 ==

== ENCOUNTER 2023-08-29 13:31 | Outpatient (REF) | payer MEDICARE, BC, SELFPAY ==
[2023-08-29 17:18] LABS: Urine Cytology See Pathology rpt
== END 2023-08-29 13:32 | disposition home or self-care (01) ==
LOC: HO.LAB 13:31
PROVIDERS: Visit Provider Urology
DX: N39.498 Other specified urinary incontinence (principal); N39.0 Urinary tract infection, site not specified; R39.15 Urgency of urination
CPT/HCPCS: 51701; 81003; 87086; 87088; 87186; 88112; 99212

== ENCOUNTER 2023-08-29 13:31 | Outpatient (AMB) | payer MEDICARE, BC, SELFPAY ==
--- NOTE | 2023-08-29 13:39 | A.OFFVIS_ITS ---
Intake Intake Visit Reasons: cysto/US Intake Note: Patient presents today for a CYSTOSCOPY Procedure: CANCELLED, due to nitrite positive urine Meds: Estradiol Allergies to Antibiotic: Cephalexin, Clindamycin, Erythromycin base, Nitrofurantoin, Sulfa (Sulfonamide Antibiotics) Blood Thinner: None Edge [place]yer Required: No Accompanied by: Self / Same As Patient Allergies cephalexin [From Keflex] Allergy (Verified 07/23/23 10:34) Unknown clindamycin Allergy (Verified 07/23/23 10:34) Unknown erythromycin base Allergy (Verified 07/23/23 10:34) Unknown mirabegron Allergy (Verified 07/23/23 10:34) Unknown nitrofurantoin [From Macrodantin] Allergy (Verified 07/23/23 10:34) Unknown Sulfa (Sulfonamide Antibiotics) Allergy (Verified 07/23/23 10:34) Unknown Ghrbrhp-GLC-CmD Reductase Inhibitor Adverse Reaction (Verified 07/23/23 10:34) Fatigued Medication List - Last Reconciled 08/29/23 by Milo Callahan MD ciprofloxacin HCl 500 mg PO BID estradiol 0.01%(0.1mg/gram) vaginal lisinopril 10 mg PO DAILY omeprazole 40 mg PO DAILY HPI HPI Comments History of Present Illness Details Malena is an 88-year-old female who presents today FU for recurrent UTI's 08/29/23-- The patient is here for schedu led office cystoscopy. (office cysto ca nceled as urinalysis is nitrite positive) The patient was initially evaluated on 07/20/2023? a new patient for recurrent UTIs and was sent for renal ultrasound. Patient has a past medical history significant for uterine cancer. She has had in total hysterectomy followed by radiation. The patient complains of intractible urinary urgency/frequency and states she has tried multiple meds in the past. I have discussed sacral neuromodulation as an alternative treatment option regarding this problem. I have reviewed renal ultrasound--kidneys within normal notes Pelvic examination no significant prolapse noted. Catheterized urine 60 mL. No induration or pain on urethral palpation Review of chart: urine culture results from 04/26/2023 revealed serratia >>> 100,000 colonies no tory. Plan: Urine culture, Urine for cytology? Cipro 500 mg bid for 7 days Reschedule cysto in 4-5 weeks PFSH Medical History Depression screen Colon cancer screening Unilateral primary osteoarthritis, unspecified knee Acute cystitis without hematuria H/O malignant neoplasm of parotid gland H/O cancer of uterus Candidiasis, unspecified Essential (primary) hypertension Surgical History Hx of hysterectomy Family History Father No problems noted. Mother No problems noted. Social History Household Members: None Housing: Assisted Living Facility Alcohol intake: current Alcohol intake frequency: does not drink Patient Tobacco Use Status: Never used Tobacco Current occupational status: retired Physical Exam Const General: cooperative, healthy appearing and no acute distress Orientation/consciousness: patient oriented x3 HEENT Head: Yes normal to inspection, Yes normocephalic and Yes atraumatic Eyes Conjunctivae: conjunctivae normal Neck Neck: Yes normal visual inspection and Yes trachea midline Chest Chest palpation & inspection: normal inspection of the chest Resp Effort & Inspection: normal respiratory effort Cardio Rate: regular rate GI Inspection: Yes normal to inspection Palpation (GI): Soft to palpation General: No no CVA tenderness External Female Exam: normal external appearance Speculum Exam - Vagina: vagina atrophic Back/Spine/Pelvis Back: No no CVA tenderness Skin General skin exam: no rashes or lesions noted Neuro General: patient oriented x3 Psych Appearance: grossly normal Office Procedures Bladder/Catheter Procedure Details: Under sterile technique a 14 Malagasy catheter was passed transurethrally, 60 mL urine drained [id number] Bladder Catheter Procedure code (CPT) selection complete Assessment & Plan Assessment & Plan (1) Frequent urinary incontinence: Code(s): N39.498 - Other specified urinary incontinence (2) Urinary urgency: Code(s): R39.15 - Urgency of urination (3) Recurrent UTI: Code(s): N39.0 - Urinary tract infection, site not specified Plan Urine culture, Urine for cytology? Cipro 500 mg bid for 7 days Reschedule cysto in 4-5 weeks Orders: Orders AMB Bladder/Catheter Procedure Today N39.0 - Urinary tract infection, site not specified, N39.498 - Other specified urinary incontinence, R39.15 - Urgency of urination AMB Urinalysis Automated Today Z13.9 - Encounter for screening, unspecified Urine Culture Today N39.0 - Urinary tract infection, site not specified Urine Cytology Today N39.0 - Urinary tract infection, site not specified, N39.498 - Other specified urinary incontinence, R39.15 - Urgency of urination Medications: New ciprofloxacin HCl 500 mg PO BID 14 tabs 0RF Coding Level of Care Code Est Pt Level 4 (52476) Diagnoses Frequent urinary incontinence N39.498 Urinary urgency R39.15 Recurrent UTI N39.0 CPT Codes Bladder/Catheter Procedure - CPT: [id number] Bladder Catheter ([id number])
== END 2023-08-29 14:29 | disposition home or self-care (01) ==
PROVIDERS: Visit Provider Urology
DX: N39.498 Other specified urinary incontinence (principal); R39.15 Urgency of urination; N39.0 Urinary tract infection, site not specified; Z13.9 Encounter for screening, unspecified
CPT/HCPCS: 51701; 99214

== ENCOUNTER 2023-09-13 13:33 | Outpatient (AMB) | payer MEDICARE, BC, SELFPAY ==
--- OUTSIDE RECORDS SUMMARY | 2023-09-13 13:35 | XMS_ITS | Patient Health Record ---
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 Name Role Phone Devin Morgan Primary Care Provider ALLERGIES Allergen (clinical drug ingredient) Drug/Non Drug Allergy documented on EMR Reaction Allergy Type Onset Date Status clindamycin Clindamycin Unknown Drug Allergy Act tommy atorvastatin Atorvastatin fatigue Drug Allergy A ctive Keflex Unknown Drug Allergy Active erythromycin Erythromycin Unknown Drug Allergy A ctive sulfamethoxazole / trimethoprim Bactrim DS Unknown Drug Allergy Active 12 Hour Nasal [place] Unknown Drug Allergy Active RESULTS Component Value Reference Range Notes Urine Culture Reviewed date:04/30/2023 12:45:25 PM Interpretation: Performing Lab:[facility], [address] [place] [phone] Notes/Report: O:SERMAR Serratia marcescens Urine Culture Quant Urine Culture > 100,000 cfu/mL Ceftriaxone <=0.25 Gentamicin <=1 Levofloxacin 0.5 Trimethoprim/Sulfamethoxaz ole <=20 Complete Blood Count Auto Di ff Reviewed date:04/26/2023 01:58:23 PM Interpretation: Performing Lab:[address] [phone] Notes/Report: White Blood Count 4.3 4.8-10.8 X10*3/uL Red Blood Count 4.23 4.20-5.50 X10*6/uL Hemoglobin 13.5 12.0-16.0 g/dl Hematocrit 38.8 37.0-47.0 % Mean Corpuscular Volume 91.7 80.0-98.0 fL Mean Corpuscular Hemoglobin 31.9 27.0-33.0 pg Mean Corpuscular HGB Conc 34.8 31.0-35.0 g/dl Red Cell Distribution Width 12.2 11.0-16.0 % Platelet Count 285 160-400 X10*3/uL Mean Platelet Volume 10.4 9.4-12.3 fL Neutrophils Percent Auto 54.7 45-73 % Imm Gran Pct Auto 0.2 0.0-0.4 % Lymphocytes Percent Auto 29.0 20-40 % Monocytes Percent Auto 12.2 2-11 % Eosinophils Percent Auto 3.0 0-4 % Basophils Percent Auto 0.9 0-2 % NRBC Pct Auto 0.0 0.0-0.2 /100WBC Neutrophils Absolute Auto 2.4 2.0-8.3 x10*3/u L Imm Gran Abs Auto 0.01 0.00-0.03 X10*3/uL Lymphocytes Absolute Auto 1.3 1.2-4.9 X10*3/u L Monocytes Absolute Auto 0.5 0.1-1.2 X10*3/uL Eosinophils Absolute Auto 0.1 0.0-0.4 X10*3/u L Basophils Absolute Auto 0.0 0.0-0.2 X10*3/uL NRBC Abs Auto 0.000 0.0-0.012 X10*3/uL Comprehensive [place]. Panel Fa st Reviewed date:04/26/2023 01:48:19 PM Interpretation: Performing Lab:[facility], [address] [place] [phone] Notes/Report: Sodium 139 135-145 mmol/L Potassium 4.1 3.3-5.1 mmol/L Chloride 104 96-108 mmol/L Carbon Dioxide 26 22-29 mmol/L Anion Gap 13 12-20 Blood Urea Nitrogen 13 9-16 mg/dL Creatinine 0.59 0.5-1.4 mg/dL Estimated Glomerular Filt Rate > 60 NOTE: For -[place] individuals, multiply the result by 1.210. Chronic Kidney Disease: Estimated GFR < 60 mL/min/1.73m2 Severe Kidney Disease: Estimated GFR < 15 mL/min/1.73m2 Glucose Fasting 86 60-99 mg/dL Calcium 10.2 8.4-10.2 mg/dL Bilirubin Total 0.6 0.0-1.0 mg/dL Aspartate Amino Transferase 18 5-31 U/L Alanine Aminotransferase 15 0-31 U/L Total Protein 7.0 6.5-8.0 g/dL Albumin Level 4.1 3.5-5.0 g/dL Alkaline Phosphatase 54 39-117 U/L Lipid Panel Reviewed date:04/26/2023 01:47:10 PM Interpretation: Performing Lab:[facility], [address] [place] [phone] Notes/Report: Triglycerides 89 <150 mg/dL Desirable Triglyceride: less than 150 mg/dL Borderline High Triglyceride 150-199 mg/dL High Triglyceride: 200-499 mg/dL Very High Triglyceride: greater than or equal to 5OO mg/dL Cholesterol 228 <200 mg/dL Desirable Cholesterol: less than 200 mg/dL Borderline High Cholesterol: 200-239 mg/dL High Cholesterol: greater than 239 mg/dL LDL Cholesterol Calculated 155 <100 mg/dL Desirable LDL: less than 100 mg/dL Near Optimal/Above Optimal LDL: 110-129 mg/dL Borderline High LDL: 130-159 mg/dL High LDL: 160-189 mg/dL Very High LDL: greater than or equal to 190 mg/dL HDL Cholesterol 56 >40 mg/dL Desirable HDL: greater than 40 mg/dL Note: This HDL assay may give artificially low results in patients with liver disease. UA ClnCatch+Micro w/rflx Cul t Reviewed date:04/29/2023 02:09:42 PM Interpretation: Performing Lab:[facility], [address] [place] [phone] Notes/Report: Urine, Clean Catch Color Urine Yellow Appearance Urine Clear PH 7.0 5.0-9.0 Glucose Urine UA Negative Negative mg/dL Urine Blood Negative Negative Specific [employer] - Urine <= 1.005 1.005-1.025 Urine Protein Negative Neg-Trace mg/dL Urine Ketones Negative Negative mg/dL Nitrite Urine Negative Negative Leukocyte Esterase Urine Large (3+) Negative RBC Urine 0-2 0-2 /HPF WBC Urine 11-20 0-5 /HPF Squamous Epithelial Cell Urine 0-2 0-2 /HPF Bacteria Urine 4+ None Seen Hyaline Casts Urine 0-2 0-2 /LPF Occult Blood, Stool, Guaiac Reviewed date:04/30/2023 03:54:42 PM Interpretation:Negative Performing Lab: Notes/Report: Negative Occult Blood, Stool, Guaiac Neg MM tomosynthesis screening L T Reviewed date:07/27/2023 12:43:10 PM Interpretation: Performing Lab: Notes/Report: [facility] [address] [place], [place] [address] Mammography Report Signed Patient: Malena Fairbanks MR#: [id number] : 1935 Acct:[id number] Age/Sex: 88 / F ADM Date: 07/16/23 Loc: HO.MAMMO Attending Dr: Devin Morgan MD Ordering Physician: Devin Morgan MD Results: 2Be nign Findings Date of Service: 07/16/23 Follow Up: 1 Year From Orig ina Mammogram Procedure(s): MM tomosynthesis screening LT Accession Number(s): [id number] cc: Devin Morgan MD EXAMINATION: MM SCREENING DIGITAL BREAST TOMOSYNTHESIS, BILATERAL CLINICAL INFORMATION: Screening. Asymptomatic. The patient is status post right mastectomy. COMPARISON: Mammography: This study is compared with prior exams dating back to 2018. TECHNIQUE: Digital breast tomosynthesis is performed in both the craniocaudal and mediolateral oblique views along with computer-aided detection (CAD). Synthesized 2D images are generated from the tomosynthesis. FINDINGS: There are scattered areas of fibroglandular density (ACR BI-RADS breast composition Category b). There are no significant masses, abnormal calcifications, or other abnormalities. There is a tissue marker present in the upper outer quadrant of the left breast from prior benign percutaneous biopsy. MM/MM tomosynthesis screening LT IMPRESSION: No mammographic evidence of malignancy. ASSESSMENT: BI-RADS BI-RADS 2 - Benign Findings RECOMMENDATION: Routine annual mammography screening. 1 year F/U This examination should not preclude the clinical evaluation of a suspicious palpable abnormality. This patient's information was entered into a reminder system with a target due date for their next mammogram. 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 COMPARISON: CT abdomen and pelvis 01/24/2023. Ultrasound kidneys and bladder 06/01/2015. TECHNIQUE: Real-time imaging of the kidneys. Limited visualization due to bowel gas. FINDINGS: RIGHT KIDNEY: 10.8 x 4.8 x 5.7 cm (SAG x AP x TRV). No hydronephrosis. No renal calculi. Renal cortical thickness is normal. Limited visualization. LEFT KIDNEY: 10.6 x 5.4 x 5.0 cm (SAG x AP x TRV). No hydronephrosis. No renal calculi. Renal cortical thickness is normal. Limited visualization. Medial 0.6 cm cyst with benign features. There is no indication for follow-up imaging. US/US renal BI IMPRESSION: There is a 0.6 cm left renal cyst with benign features. There is no indication for follow-up imaging. Dictated By: Jazmyn Daly MD Signed By: <Electronically signed by Jazmyn Daly MD in OV> 08/22/23 0614 DD/ 1601 TD/TT: Meat Apprentice: XR DEXA axial skeleton Reviewed date:08/25/2023 05:25:44 PM Interpretation: Performing Lab: Notes/Report: [facility] [address] [place] [address] Mammography Report Signed Patient: Malena Fairbanks MR#: [id number] 378 : 1935 Acct:[id number] Age/Sex: 88 / F ADM Date: 08/24/23 Loc: [facility] Attending Dr: Alton Caba MD Ordering Physician: Alton Caba MD Results: Date of Service: 08/24/23 Follow Up: Procedure(s): XR DEXA axial skeleton Accession Number(s): [id number] cc: Devin Morgan MD; Alton Caba MD EXAMINATION: BONE DENSITOMETRY CLINICAL INDICATION: Asymptomatic menopausal state. COMPARISON: This is the patient's baseline examination. TECHNIQUE: Using a Firework DXA System (software version: 13.1) manufactured by [employer], dual-energy x-ray absorptiometry was performed of the lumbar spine and left hip. The images are of good technical quality. Summary results are attached. FINDINGS: LEFT FEMUR, NECK: BMD 0.769 g/cm2, Z-score 0.3, T-score -1.9, osteopenia. LEFT FEMUR, TOTAL: BMD 0.828 g/cm2, Z-score 0.7, T-score -1.4, osteopenia. AP SPINE L1-L4: BMD 0.942 g/cm2, Z-score -0.3, T-score -2.0, osteopenia. IDENTIFIED RISK FACTORS: Menopause, hysterectomy, bilateral oophorectomy, history of fracture (adult), osteoporosis. HISTORY OF FRACTURE: Shoulder, wrist. MEDICATIONS: Calcium supplements or multivitamin, vitamin D. MM/XR DEXA axial skeleton IMPRESSION: 1. DIAGNOSIS: Osteopenia based on the lowest T-score value of -2.0 in the lumbar spine applying World Health Organization criteria. 2. 10-YEAR FRACTURE RISK PREDICTION, FRAX: Major osteoporotic fracture (clinical spine, forearm, hip or shoulder) 20.1%. Hip fracture 5.9%. 3. Treatment Recommendations: NOF guidelines recommend consideration for treatment in postmenopausal women and men age 50 and older presenting with the following: -A hip or vertebral (clinical or morphometric) fracture. -T-score less than or equal to -2.5 at the femoral neck or spine after appropriate evaluation to exclude secondary causes. -Low bone mass at the hip or spine and a 10-year fracture probability by FRAX of greater than or equal to 3% for hip fracture or greater than or equal to 20% for major osteoporotic fracture based on the [place] adapted WHO algorithm. 4. Other Recommendations: All treatment decisions require clinical judgment and consideration of individual patient factors, including patient preferences, comorbidities, previous drug use, risk factors not captured in the FRAX model (e.g. frailty, falls, vitamin D deficiency, increased bone turnover, interval significant decline in bone density) and possible under or overestimation of fracture risk by FRAX. Additional medical evaluation for secondary cause of low bone mineral density may be appropriate. FUTURE SCAN RECOMMENDATION: People with diagnosed cases of osteoporosis or at high risk for fracture should have regular bone mineral density tests. For patients eligible for Medicare, routine testing is allowed once every 2 years. The testing frequency can be increased to one year for patients who have rapidly progressing disease, those who are receiving or discontinuing medical therapy to restore bone mass, or have additional risk factors. Dictated By: Johnny Zaman MD Signed By: <Electronically signed by Johnny Zaman MD in OV> 08/24/23 1726 DD/ 1410 TD/TT: Meat Apprentice: TOM REASON FOR REFERRAL Reason History of uterine c ancer Diagnosis 1 History of uterine c ancer (Z85.42) Referral Organization Devin Morgan MD Referring Provider First Name Devin Referring Provider Last Name Cathy Referring Provider Speciality Internal M edicine Referred Provider ALOTN CABA Referred Provider Specialty OB - Gynecol ogy General Notes Ariana España 09:30:24 AM EDT > info faxed, Ariana España 05/31/2023 09:42:45 AM EDT > info mailed to patient Referral Priority Routine Referral Appointment Date 07/16/2023 Reason History of utenrine cancer Diagnosis 1 History of uterine c ancer (Z85.42) Referral Organization Devin Morgan MD Referring Provider First Name Devin Referring Provider Last Name Cathy Referring Provider Speciality Internal M edicine Referred Provider [facility] Oncology [facility] On[facility] Hematology Referred Provider Specialty Hematology/O ncology General Notes Ariana España 02:03:56 PM EDT > needs appt with Patria Allison Annette 05/18/2023 02:10:48 PM EDT > info faxed Patria Annette 05/29/2023 12:24:41 PM EDT > appt is with Dr. Daigle was told patient is aware of the appt Referral Priority Routine Referral Appointment Date 06/13/2023 Reason history of uterine c ancer Diagnosis 1 History of uterine c ancer (Z85.42) Referral Organization Devin Morgan MD Referring Provider First Name Devin Referring Provider Last Name Cathy Referring Provider Speciality Internal M edicine Referred Provider Milo Yates Referred Provider Specialty Urology General Notes Ariana España 09:31:04 AM EDT > info faxed Patria Annette 05/31/2023 09:43:12 AM EDT > ingo mailed to patient Referral Priority Routine Referral Appointment Date 07/20/2023 Reason arthritis of knee Diagnosis 1 Arthritis of knee (M 17.10) Referral Organization Devin Morgan MD Referring Provider First Name Devin Referring Provider Last Name Cathy Referring Provider Speciality Internal M edicine Referred Provider HEMANT OLGUIN Referred Provider Specialty Orthopedic S urgery General Notes Ariana España 02:12:50 PM EDT > info faxedPatria Annette 05/18/2023 02:15:05 PM EDT > no need for referral patient is having knee surgery on Sunday Referral Priority Routine MEDICATIONS Medication SIG (Take, Route, Fr equency, Duration) Notes Start Date End Date Status Lisinopril 40 MG 1 tablet Orally Once a day Active Econazole Nitrate 1 % 1 application Exte rnally Once a day for 7 day(s) 04/30/2023 Active Estrace 0.1 MG/GM as directed Vaginal Once a day for 90 days Active Omeprazole 40 MG 1 capsule 30 minutes before morning meal Orally Once a day for 90 days Active IMMUNIZATIONS Vaccine Route Administration Date Status Comme nts Fluarix Quadrivalent - 150 Unknown 06/01/2023 Administe red SOCIAL HISTORY Tobacco Use: Social History Observation Description Date Details (start date - stop date) Never Smoker NA - NA Sex Assigned At : Social History Observation Description Sex Assigned At Unknown Tobacco Use/Smoking Question Answer Notes Patient is a nonsmoker Additional Findings: Tobacco Non-User Cu rrent non-smoker, currently using no form of tobacco Alcohol Screen Question Answer Notes Did you have a drink contain ing alcohol in the past year? Yes How often did you have a dri nk containing alcohol in the past year? Monthly or less (1 point) How many drinks did you have on a typical day when you were drinking in the past year? 1 or 2 drinks (0 point) How often did you have 6 or more drinks on one occasion in the past year? 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) Active confirmed 067227660 VITAL SIGNS Blood pressure diastolic 80 mm Hg 08/30/2023 ramiro ght is up 7 pounds since 04-30-23 Height 63.5 in 08/30/2023 weight is up 7 pounds since 04-30-23 Blood pressure systolic 158 mm Hg 08/30/2023 weig ht is up 7 pounds since 04-30-23 Weight 165 lbs 08/30/2023 weight is up 7 pounds since 04-30-23 BMI 28.77 kg/m2 08/30/2023 weight is up 7 pounds since 04-30-23 Encounters Encounter Location Date Provider Diagnosis Devin Morgan MD [address] [place] [id number] 04/30/2023 Devin Morgan Essential hypertension I10 ; Yeast infection B37.9 ; History of uterine cancer Z85.42 ; History of parotid cancer Z85.818 ; History of colon cancer Z85.038 ; Acute cystitis without hematuria N30.00 ; Arthritis of knee M17.10 ; Colon cancer screening Z12.11 and Depression screen Z13.31 Devin Mrogan MD [address] [place] [id number] 04/26/2023 Devin Morgan Essential hypertension I10 Devin Morgan MD [address] [place] [id number] 03/19/2023 Devin Morgan Essential hypertension I10 ; History of colon cancer Z85.038 and Skin lesion of back L98.9 Devin Morgan MD [address] [place] [id number] 08/30/2023 Devin Morgan History of colon cancer Z85.038 ; Essential hypertension I10 and Dizzinesses R42 Devin Morgan MD [address] [place] [id number] 04/30/2023 Devin Morgan MD [address] [place] [id number] 04/30/2023 Devin Morgan MD [address] [place] [id number] 06/01/2023 Devin Morgan MD [address] [id number] 06/01/2023 Devin Morgan MD [address] [place] [id number] 06/07/2023 Devin Morgan Essential hypertension I10 Devin Morgan MD [address] [place] [id number] 08/24/2023 Devin Morgan ASSESSMENTS Encounter Date Diagnosis Assessment Notes Treatment Notes Treatment Clinical Notes 04/30/2023 Yeast infection (ICD-10 - B37.9) Patient/Caregiver verbalizes understanding of medications side effects, interactions and warnings. 04/30/2023 Essential hypertension (ICD-10 - I10) order given to patient.pending diagnostic study, stable, will continue current regiment 04/26/2023 Essential hypertension (ICD-10 - I10) 03/19/2023 Essential hypertension (ICD-10 - I10) stable, will continue current regiment 03/19/2023 History of colon cancer (ICD-10 - Z85.038) 08/30/2023 Essential hypertension (ICD-10 - I10) well controlled, will continue current regiment 08/30/2023 History of colon cancer (ICD-10 - Z85.038) had ct chest abdomen at [facility]. NEED results need notes from shadi at [facility]/ sent request for records for Dr. Vargas/ CT chest scanned in chart 06/07/2023 Essential hypertension (ICD-10 - I10) 04/30/2023 History of uterine cancer (ICD-10 - Z85.42) needs crisis mental health therapist referral at [facility] 03/19/2023 Skin lesion of back (ICD-10 - L98.9) send to [place] 08/30/2023 Dizzinesses (ICD-10 - R42) is doing better by playing piano, will continue to monitor 04/30/2023 History of parotid cancer (ICD-10 - Z85.818) 04/30/2023 History of colon cancer (ICD-10 - Z85.038) needs oncology referral dr marrufo in [place] 04/30/2023 Acute cystitis without hematuria (ICD-10 - N30.00) referral to urology 04/30/2023 Arthritis of knee (ICD-10 - M17.10) referral to dr olguin 04/30/2023 Colon cancer screening (ICD-10 - Z12.11) guaiac negative 04/30/2023 Depression screen (ICD-10 - Z13.31) negative screen 03/19/2023 Other Total time spen t on the date of the encounter is 45 minutes including both face to face time spent and time spent reviewing documentation, and counseling the patient. 04/30/2023 Other Total time spen t on the date of the encounter is 55 minutes including both face to face time spent and time spent reviewing documentation, and counseling the patient. PLAN OF TREATMENT Pending Test Test Name Order Date XR CHEST 2 VIEW PA & LAT 04/30/2023 Next Appt Details Provider Name:Devin wilson, 12/28/2023 01:45:00 PM, [address] [place] [address], [address] [place] [address], [phone], Provider Name:Devin wilson, 04/24/2024 07:30:00 AM, [address] [place] [address], Suite [facility], [place], [place], [phone], Provider Name:Devin wilson, 05/01/2024 01:00:00 PM, [address] [place] [address], Suite [facility], [place], [phone], Insurance Providers Payer Name Payer Address Payer Phone Subscriber Number Group Number Insured Name Patient Relationship to Insured Coverage Start Date Coverage End Date [employer] [address] [place] [address] [id number] Malena Fairbanks Self - patient is the insured [facility] [address] [place], [place] [id number] [phone] [id number] Malena Fairbanks Self - patient is the insured
[2023-09-13 13:41] VITALS: BP 132/66; BMI 28.3
--- NOTE | 2023-09-13 13:41 | MHC.OFFVIS ---
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: No Allergies cephalexin [From Keflex] Allergy (Verified 09/13/23 13:42) Unknown clindamycin Allergy (Verified 09/13/23 13:42) Unknown erythromycin base Allergy (Verified 09/13/23 13:42) Unknown mirabegron Allergy (Verified 09/13/23 13:42) Unknown nitrofurantoin [From Macrodantin] Allergy (Verified 09/13/23 13:42) Unknown Sulfa (Sulfonamide Antibiotics) Allergy (Verified 09/13/23 13:42) Unknown Ikdofaz-GBE-NmP Reductase Inhibitor Adverse Reaction (Verified 09/13/23 13:42) Fatigued Is last menstrual period known: No Post menopausal: Yes Patient : No HPI HPI Comments History of Present Illness Details The patient is presenting for follow up regarding DEXA scan results. T score @ spine and femoral Neck respectively were=-2 /-1.9 and 10 year FRAX risk = 20.1/5% for severe osteoporosis and fracture. [facility] Medical History Depression screen Colon cancer screening Unilateral primary osteoarthritis, unspecified knee Acute cystitis without hematuria H/O malignant neoplasm of parotid gland H/O cancer of uterus Candidiasis, unspecified Essential (primary) hypertension Surgical History Hx of hysterectomy Family History Father No problems noted. Mother No problems noted. Social History Household Members: None Housing: Assisted Living Facility Alcohol intake: current Alcohol intake frequency: does not drink Patient Tobacco Use Status: Never used Tobacco Patient : No Current occupational status: retired Female Reproductive History Menstrual control method: permanent sterilization Review of Systems Const All systems reviewed & are unremarkable except as noted in HPI and below Reports as per HPI and Reports no additional complaints GI Reports no additional complaints Reports no additional complaints Physical Exam Vital Signs: Last Vital Signs BP 132/66 09/13/23 13:41 BMI result Body Mass Index 28.3 Assessment & Plan Assessment & Plan (1) Osteopenia with high risk of fracture: Comment: History of osteonecrosis of the jaw Code(s): M85.80 - Other specified disorders of bone density and structure, unspecified site Plan: Discussed with the patient the results of her DEXA scan specifically elevated FRAX risk. Given the patient has history of osteonecrosis of the jaw will Refer to rheumatology for further management. Instructed the patient to call our office back in case a referral appointment is not scheduled, missed or canceled so that we will assist on rescheduling another appointment, the patient verbalized understanding agreed with the plan. Orders: Referrals Rheumatology Referral M85.80 - Other specified disorders of bone density and structure, unspecified site Coding Level of Care Code Est Pt Level 3 (79090) Diagnoses Osteopenia with high risk of fracture M85.80
== END 2023-09-13 14:18 | disposition home or self-care (01) ==
LOC: HO.HWS 13:33
PROVIDERS: Visit Provider Obstetrics & Gynecology
DX: M85.80 Other specified disorders of bone density and structure, unspecified site (principal)
CPT/HCPCS: 99213

== ENCOUNTER → 2023-09-13 13:33 | Outpatient (BNVA) | payer MEDICARE, BC, SELFPAY | PROVIDERS: Visit Provider Obstetrics & Gynecology | DX: M85.80 Other specified disorders of bone density and structure, unspecified site (principal) | CPT/HCPCS: 99212 ==

== ENCOUNTER 2023-10-05 13:22 | Outpatient (REF) | payer MEDICARE, BC, SELFPAY | END 2023-10-05 13:23 | disposition home or self-care (01) | LOC: HO.LAB 13:22 | DX: N39.0 Urinary tract infection, site not specified (principal); R39.15 Urgency of urination; N39.498 Other specified urinary incontinence | CPT/HCPCS: 52000; 81003; 87086; 87088; 87186 ==

== ENCOUNTER 2023-10-05 13:22 | Outpatient (AMB) | payer MEDICARE, BC, SELFPAY ==
--- NOTE | 2023-10-05 11:14 | A.OFFVIS_ITS ---
Intake Intake Visit Reasons: cysto Intake Note: Patient presents today for a CYSTOSCOPY Procedure: Meds: Estradiol Allergies to Antibiotic: Cephalexin, Clindamycin, Erythromycin base, Nitrofurantoin, Sulfa (Sulfonamide Antibiotics) Blood Thinner: None Disposable Uro-G Cystoscope Cannula: Lot: [id number] Exp: 12/31/2024 Retail Shift Manager Required: No Electrical Power Engineer: Electrical Power Engineer Present Accompanied by: Self / Same As Patient Allergies cephalexin [From Keflex] Allergy (Verified 10/31/23 12:48) Unknown clindamycin Allergy (Verified 10/31/23 12:48) Unknown erythromycin base Allergy (Verified 10/31/23 12:48) Unknown mirabegron Allergy (Verified 10/31/23 12:48) Unknown nitrofurantoin [From Macrodantin] Allergy (Verified 10/31/23 12:48) Unknown Sulfa (Sulfonamide Antibiotics) Allergy (Verified 10/31/23 12:48) Unknown Bbpbjlm-RXY-GsC Reductase Inhibitor Adverse Reaction (Verified 10/31/23 12:48) Fatigued Medication List - Last Reconciled 10/05/23 by Milo Callahan MD estradiol 0.01%(0.1mg/gram) vaginal levofloxacin 250 mg PO DAILY lisinopril 10 mg PO DAILY omeprazole 40 mg PO DAILY HPI HPI Comments History of Present Illness Details Malena is an 88-year-old female who presents today FU for recurrent UTI's 10/05/23 - For cysto today urine c/s 08/29/23 klebsiella S-to levaquin a quinolone, she was treated with Cipro a quinolone The patient states that after 5 days of the cipro she started to have a decrease in her irritative voiding but after completing the Cipro the symptoms returned. Cysto: Findings - Bladder wall thickening, muti-focal bullous changes consistent with cystitis folliculitis Review of chart: 08/29/23-- The patient is here for schedu led office cystoscopy. (office cysto canceled as urinalysis is nitrite positive) The patient was initially evaluated on 07/20/2023? a new patient for recurrent UTIs and was sent for renal ultrasound. Patient has a past medical history significant for uterine cancer. She has had in total hysterectomy followed by radiation. The patient complains of intractible urinary urgency/frequency and states she has tried multiple meds in the past. I have discussed sacral neuromodulation as an alternative treatment option regarding this problem. I have reviewed renal ultrasound--kidneys within normal notes Pelvic examination no significant prolapse noted. Catheterized urine 60 mL. No induration or pain on urethral palpation Urine culture results from 04/26/2023 revealed serratia >>> 100,000 colonies noted. Plan: 10/05/23 - Persistent Bacteuria, the preeti ent has multiple abx allergies, she has irritative voiding symptoms will trial a longer course of quinolone therapy. repeat urine c/s sent fu 3 1/2 weeks to recheck urine and pt's symptoms [facility] Medical History (Updated 10/26/23 @ 09:57 by Milo Callahan MD) Depression screen Colon cancer screening Unilateral primary osteoarthritis, unspecified knee Acute cystitis without hematuria H/O malignant neoplasm of parotid gland H/O cancer of uterus Candidiasis, unspecified Essential (primary) hypertension Surgical History (Updated 10/31/23 @ 12:55 by MERY Valentino) History of surgery Hx of hysterectomy Family History Father No problems noted. Mother No problems noted. Social History Household Members: None Household Members Other:: [facility] Housing: Assisted Living Facility Alcohol intake: current Alcohol intake frequency: a few times a week Alcohol type: wine Patient Tobacco Use Status: Never used Tobacco Current occupational status: retired Review of Systems Const All systems reviewed & are unremarkable except as noted in HPI and below Reports no additional complaints Eyes Reports no additional complaints ENT Reports no additional complaints Card Denies dyspnea Resp Denies cough and Denies dyspnea GI Reports no additional complaints Reports no additional complaints Musc Reports no additional complaints Skin/Breast Denies rash and Denies unusual bruising Neuro Reports no additional complaints Psych Reports no additional complaints Endo Reports no additional complaints Marino/Lymph Reports no additional complaints Aller/Immun Reports no additional complaints Office Procedures Cystoscopy Consent Discussed risk and benefit or proposed procedure with the patient. Information consent for procedure given to the patient. Discussed technical aspects, risks, benefits and alternatives in full. Addressed all of the patient's questions and concerns regarding the procedure. The patient demonstrated knowledge and understanding. They wish to proceed with this procedure. Preparation The patient was prepped in the usual manner. A boom conveyor operator was present and in the room. Genitalia was prepped with betadine solution in a sterile manner. Lidocaine Jelly 2% was placed into the urethra and 16Fr flexible Olympus cystoscope was inserted into the meatus after adequate lubrication. Procedure Time out per protocol performed. Bladder Inspection Bladder Inspection: The bladder was inspected in its entirety with utilization retroflexion displaying: Tumor(s): none visualized Trabeculation: Moderate Mucosal Erthema: Present Orifices: normal shape and position Urethra: normal Cystoscopy findings: consistent with cystitis, no suspicious bladder lesions visualized [id number] DISPOSABLE SCOPE URO-G FLEXIBLE SCOPE Procedure code (CPT) selection complete Office Meds lidocaine HCl 2 % mucosal jelly in applicator Performing Provider: Milo Callahan MD Performing Location: [facility] Administered by: Jude Estrella LPN on 10/05/23 13:51 Dose Route Admin Location Dispensed Lot Number Expiration Date ND Sql Server Bi Developer 10 mL intra-urethral 20 mL naproxen 500 mg tablet Performing Provider: Milo Callahan MD Performing Location: [facility] Administered by: Jude Estrella LPN on 10/05/23 13:51 Dose Route Admin Location Dispensed Lot Number Expiration Date ND Sql Server Bi Developer 500 mg PO 1 tab ciprofloxacin HCl 500 mg tablet Performing Provider: Milo Callahan MD Performing Location: [facility] Administered by: Jude Estrella LPN on 10/05/23 13:51 Dose Route Admin Location Dispensed Lot Number Expiration Date ND Sql Server Bi Developer 500 mg PO 1 tab Results AMB Urinalysis, Automated UA Leukoctes 500 Dirk/uL Last Edit by MERY Summers on 10/05/23 13:56 3+ Enedina Matthews 10/05/23 13:56 UA Nitrite Positive Last Edit by Enedina Matthews A on 10/05/23 13:56 UA Urobilinogen 0.2 mg/dL Last Edit by Enedina Matthews Vandana on 10/05/23 13:5 6 UA Protein 30 mg/dL Last Edit by Enedina Matthews, A on 10/05/23 13:56 1+ Enedina Matthews 10/05/23 13:56 UA pH 6.0 Last Edit by Enedina Matthews, REPLACED BY [facility] on 10/05/23 13:56 UA Blood 45 Josse/uL Last Edit by Enedina Matthews REPLACED BY [facility] on 10/05/23 13:56 1+ Enedina Matthews 10/05/23 13:56 UA Specific [place] 1.010 Last Edit by Enedina Matthews REPLACED BY [facility] on 10/05/23 13: 56 UA Ketone Negative Last Edit by Enedina Matthews REPLACED BY [facility] on 10/05/23 13:56 UA Bilirubin 0 mg/dL Last Edit by Enedina Matthews REPLACED BY [facility] on 10/05/23 13:56 UA Glucose 0 mg/dL Last Edit by Enedina Matthews REPLACED BY [facility] on 10/05/23 13:56 Results Reviewed Results Reviewed: Laboratory Last Values Urine pH (Auto) 6.0 10/05/23 13:55 Specific [place] (Auto) 1.010 10/05/23 13:55 Urine Protein (Auto) 30 mg/dL 10/05/23 13:55 Glucose (UA)(Auto) 0 mg/dL 10/05/23 13:55 Urine Ketones (Auto) Negative 10/05/23 13:55 Urine Blood (Auto) 45 Josse/uL 10/05/23 13:55 Urine Nitrite (Auto) Positive 10/05/23 13:55 Urine Bilirubin (Auto) 0 mg/dL 10/05/23 13:55 Urine Urobilinogen (Auto) 0.2 mg/dL 10/05/23 13:55 Leukocyte Esterase (Auto) 500 Dirk/uL 10/05/23 13:55 Collected: 08/29/23-1331 Status: COMP Req#: [id number] Received: 08/29/23-5175 Source: [facility] Sp Desc: Urine davis Subm Dr: Milo Callahan MD Ordered: Urine Culture Procedure Result Verified Urine Culture Final 08/31/23-6818 Organism 1 Klebsiella pneumoniae Quant > 100,000 cfu/mL Kleb pneum M.I.C. RX --------- --- Ampicillin >=32 R Ceftriaxone <=0.25 S Gentamicin <=1 S Levofloxacin <=0.12 S Nitrofurantoin 64 I Trimethoprim/Sulfamethoxazole <=20 S Assessment & Plan Assessment & Plan (1) Frequent urinary incontinence: Code(s): N39.498 - Other specified urinary incontinence (2) Urinary urgency: Code(s): R39.15 - Urgency of urination (3) Recurrent UTI: Code(s): N39.0 - Urinary tract infection, site not specified Plan Antibiotic suppressive therapy, levaquin 250 mg daily # 20 Orders: Orders Urine Culture 10/05/23 N39.0 - Urinary tract infection, site not specified AMB Cystoscopy 10/05/23 R39.15 - Urgency of urination, N39.498 - Other specified urinary incontinence, N39.0 - Urinary tract infection, site not specified AMB Urinalysis Automated 10/05/23 Z13.9 - Encounter for screening, unspecified Medications: New levofloxacin 250 mg PO DAILY 20 tabs 0RF Patient Instructions: The patient had an opportunity to ask questions regarding treatment plan. All questions were answered. Laboratory studies and physical exam results were discussed and reviewed in detail. No major barriers to understanding were identified. The patient expressed understanding and agreement with the above treatment plan. The patient is aware they should contact our office by phone for worsening of their current condition or the appearance of new symptoms. Compliance is encouraged with any medications and followup testing that is ordered. It is a privilege to be allowed the opportunity to participate in the urologic care of your patient. If you have any questions or concerns regarding treatment for the above conditions please do not hesitate to contact me. The office telephone contact is [phone]. This note is constructed in part using voice recognition software. While every effort has been made to ensure accuracy sausage maker errors may have been included. Yours sincerely, Milo Callahan MD Coding Level of Care Code Procedure Only Diagnoses Frequent urinary incontinence N39.498 Urinary urgency R39.15 Recurrent UTI N39.0 CPT Codes Cystoscopy - CPT: 08318-[id number] ([id number])
== END 2023-10-05 15:39 | disposition home or self-care (01) ==
PROVIDERS: Visit Provider Urology
DX: R39.15 Urgency of urination (principal); N39.498 Other specified urinary incontinence; N39.0 Urinary tract infection, site not specified; Z13.9 Encounter for screening, unspecified
CPT/HCPCS: 52000

== ENCOUNTER 2023-10-26 08:55 | Outpatient (AMB) | payer MEDICARE, BC, SELFPAY ==
--- NOTE | 2023-10-26 09:14 | A.OFFVIS_ITS ---
Intake Intake Visit Reasons: UTI follow up Intake Note: Patient presents today for a follow-up UTI: Meds: Estradiol Allergies to Antibiotic: Cephalexin, Clindamycin, Erythromycin base, Nitrofurantoin, Sulfa (Sulfonamide Antibiotics) Blood Thinner: None Avionics Mechanic Required: No Farmworker Field Crop: Farmworker Field Crop Present Accompanied by: Self / Same As Patient Allergies cephalexin [From Keflex] Allergy (Verified 10/05/23 14:19) Unknown clindamycin Allergy (Verified 10/05/23 14:19) Unknown erythromycin base Allergy (Verified 10/05/23 14:19) Unknown mirabegron Allergy (Verified 10/05/23 14:19) Unknown nitrofurantoin [From Macrodantin] Allergy (Verified 10/05/23 14:19) Unknown Sulfa (Sulfonamide Antibiotics) Allergy (Verified 10/05/23 14:19) Unknown Ilyjeta-KWH-BgG Reductase Inhibitor Adverse Reaction (Verified 10/05/23 14:19) Fatigued HPI HPI Comments History of Present Illness Details 10/26/23--Malena is an 88-year-old fema le who presents today FU for recurrent UTI's. She was last seen on 10/05/2023, cystoscopy was done at that time. 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 A repeat urine culture was sent and she was empirically treated with Levaquin. Urine culture did come back-- > 100,000 cfu/mL Citrobacter freundii, sensitive to Levaquin. She has brought in a urine specimen that was voided this morning urinalysis resulted negative for UTI. She states that her urine stream has been good, she denies dysuria she still has some urinary frequency. Plan is to start methenamine 500 mg twice a day along with vitamin-C 500 mg daily and cranberry tablets 450 mg twice a day. We will re-evaluate urine in 3 months. Review of chart: 10/05/23 - For cysto today urine c/s 08/29/23 klebsiella S-to levaquin a quinolone, she was treated with Cipro a quinolone. The patient states that after 5 days of the cipro she started to have a decrease in her irritative voiding but after completing the Cipro the symptoms returned. 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 Persistent Bacteuria, the patient has multiple abx allergies, she has irritative voiding symptoms will trial a longer course of quinolone therapy. repeat urine c/s sent. fu 3 1/2 weeks to recheck urine and pt's symptoms. 08/29/23-- The patient is here for schedu led office cystoscopy. (office cysto canceled as urinalysis is nitrite positive) The patient was initially evaluated on 07/20/2023? a new patient for recurrent UTIs and was sent for renal ultrasound. Patient has a past medical history significant for uterine cancer. She has had in total hysterectomy followed by radiation. The patient complains of intractible urinary urgency/frequency and states she has tried multiple meds in the past. I have discussed sacral neuromodulation as an alternative treatment option regarding this problem. I have reviewed renal ultrasound--kidneys within normal notes Pelvic examination no significant prolapse noted. Catheterized urine 60 mL. No induration or pain on urethral palpation. Urine culture results from 04/26/2023 revealed serratia >>> 100,000 colonies noted. Plan: 10/26/23--PLAN--. Methenamine 500 mg twice a day, vitamin-C 500 mg daily, cranberry tablets 450 mg twice a day Follow-up in 3 months recheck urine. [facility] Medical History Depression screen Colon cancer screening Unilateral primary osteoarthritis, unspecified knee Acute cystitis without hematuria H/O malignant neoplasm of parotid gland H/O cancer of uterus Candidiasis, unspecified Essential (primary) hypertension Surgical History Hx of hysterectomy Family History Father No problems noted. Mother No problems noted. Social History Household Members: None Housing: Assisted Living Facility Alcohol intake: current Alcohol intake frequency: does not drink Patient Tobacco Use Status: Never used Tobacco Current occupational status: retired Review of Systems Const All systems reviewed & are unremarkable except as noted in HPI and below Reports no additional complaints Eyes Reports no additional complaints ENT Reports no additional complaints Card Denies dyspnea Resp Denies cough and Denies dyspnea GI Reports no additional complaints Reports no additional complaints Musc Reports no additional complaints Skin/Breast Denies rash and Denies unusual bruising Neuro Reports no additional complaints Psych Reports no additional complaints Endo Reports no additional complaints Marino/Lymph Reports no additional complaints Aller/Immun Reports no additional complaints Results AMB Urinalysis, Automated UA Leukoctes 0 Dirk/uL Last Edit by MERY Summers on 10/26/23 09:22 UA Nitrite Negative Last Edit by MERY Summers on 10/26/23 09:22 UA Urobilinogen 0.2 mg/dL Last Edit by MERY Summers on 10/26/23 09:2 2 UA Protein 0 mg/dL Last Edit by MERY Summers on 10/26/23 09:22 UA pH 6.5 Last Edit by MERY Summers on 10/26/23 09:22 UA Blood 0 Josse/uL Last Edit by MERY Summers on 10/26/23 09:22 UA Specific [place] 1.005 Last Edit by MERY Summers on 10/26/23 09: 22 UA Ketone Positive Last Edit by MERY Summers on 10/26/23 09:22 UA Bilirubin 0 mg/dL Last Edit by MERY Summers on 10/26/23 09:22 UA Glucose 0 mg/dL Last Edit by MERY Summers on 10/26/23 09:22 Results Reviewed Results Reviewed: Laboratory Last Values Urine pH (Auto) 6.5 10/26/23 09:21 Specific [place] (Auto) 1.005 10/26/23 09:21 Urine Protein (Auto) 0 mg/dL 10/26/23 09:21 Glucose (UA)(Auto) 0 mg/dL 10/26/23 09:21 Urine Ketones (Auto) Positive 10/26/23 09:21 Urine Blood (Auto) 0 Josse/uL 10/26/23 09:21 Urine Nitrite (Auto) Negative 10/26/23 09:21 Urine Bilirubin (Auto) 0 mg/dL 10/26/23 09:21 Urine Urobilinogen (Auto) 0.2 mg/dL 10/26/23 09:21 Leukocyte Esterase (Auto) 0 Dirk/uL 10/26/23 09:21 Collected: 10/05/23-1321 Status: COMP Req#: [id number] Received: 10/05/23-1816 Source: [facility] Sp Desc: Urine davis Subm Dr: Milo Callahan MD Ordered: Urine Culture Procedure Result Verified Urine Culture Final 10/08/23 Organism 1 Citrobacter freundii Quant > 100,000 cfu/mL C freundii M.I.C. RX --------- --- Ceftriaxone 0.5 S Gentamicin <=1 S Levofloxacin 0.25 S Nitrofurantoin <=16 S Trimethoprim/Sulfamethoxazole <=20 S Assessment & Plan Assessment & Plan (1) Frequent urinary incontinence: Code(s): N39.498 - Other specified urinary incontinence (2) Urinary urgency: Code(s): R39.15 - Urgency of urination (3) Recurrent UTI: Code(s): N39.0 - Urinary tract infection, site not specified (4) Cystitis: Code(s): N30.90 - Cystitis, unspecified without hematuria Plan Methenamine 500 mg twice a day, vitamin-C 500 mg daily, cranberry tablets 450 mg twice a day Follow-up in 3 months recheck urine Orders: Orders AMB Urinalysis Automated Today Z13.9 - Encounter for screening, unspecified Medications: New ascorbic acid (vitamin C) ER 500 mg PO DAILY 100 caps 1RF methenamine hippurate (Hiprex) 0.5 grams (1/2 x 1 gram) PO BID 60 tabs 5RF cranberry extract administer with meals 425 mg PO BID 60 caps 3RF Patient Instructions: The patient had an opportunity to ask questions regarding treatment plan. All questions were answered. Imaging, Laboratory studies and physical exam results were discussed and reviewed in detail. No major barriers to understanding were identified. The patient expressed understanding and agreement with the above treatment plan. The patient is aware they should contact our office by phone for worsening of their current condition or the appearance of new symptoms. Compliance is encouraged with any medications and followup testing that is ordered. It is a privilege to be allowed the opportunity to participate in the urologic care of your patient. If you have any questions or concerns regarding treatment for the above conditions please do not hesitate to contact me. The office telephone contact is [phone]. This note is constructed in part using voice recognition software. While every effort has been made to ensure accuracy glass fitter errors may have been included. Yours sincerely, Milo Callahan MD Coding Level of Care Code Est Pt Level 4 (28305) Diagnoses Frequent urinary incontinence N39.498 Urinary urgency R39.15 Recurrent UTI N39.0 Cystitis N30.90
== END 2023-10-26 09:57 | disposition home or self-care (01) ==
PROVIDERS: Visit Provider Urology
DX: N39.498 Other specified urinary incontinence (principal); R39.15 Urgency of urination; N39.0 Urinary tract infection, site not specified; N30.90 Cystitis, unspecified without hematuria; Z13.9 Encounter for screening, unspecified
CPT/HCPCS: 99214

== ENCOUNTER → 2023-10-26 08:55 | Outpatient (BNVA) | payer MEDICARE, BC, SELFPAY | PROVIDERS: Visit Provider Urology | DX: N39.498 Other specified urinary incontinence (principal); N39.0 Urinary tract infection, site not specified; N30.90 Cystitis, unspecified without hematuria; R39.15 Urgency of urination | CPT/HCPCS: 81003; 99212 ==

== ENCOUNTER 2023-10-31 12:46 | Outpatient (AMB) | payer MEDICARE, BC, SELFPAY ==
--- NOTE | 2023-10-31 12:48 | MHC.OFFVIS ---
Intake Vital Signs 10/31/23 12:50 Height 5 ft 3 in Weight 161 lb 2.526 oz BMI 28.5 BP 110/80 Blood Pressure Location Rt brachial Position Sitting Pulse 81 Pulse Source Pulse Oximeter Temp 97 F Temp Source Skin Pulse Oximetry (%) 95 Oxygen Delivery Method Room Air Intake Visit Reasons: Osteopenia Intake Note: New patient, internally referred, presents today for osteopenia. c/o nic knee pain Solid Waste Technician Required: No Accompanied by: Self / Same As Patient Allergies cephalexin [From Keflex] Allergy (Verified 10/31/23 12:48) Unknown clindamycin Allergy (Verified 10/31/23 12:48) Unknown erythromycin base Allergy (Verified 10/31/23 12:48) Unknown mirabegron Allergy (Verified 10/31/23 12:48) Unknown nitrofurantoin [From Macrodantin] Allergy (Verified 10/31/23 12:48) Unknown Sulfa (Sulfonamide Antibiotics) Allergy (Verified 10/31/23 12:48) Unknown Qociksu-XPX-CrZ Reductase Inhibitor Adverse Reaction (Verified 10/31/23 12:48) Fatigued HPI HPI Comments History of Present Illness Details Ms. Lenz 88 yoF here for management of osteopenia, and treatment recommended given FRAX score 25%. 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 She was assessed for osteoporosis and found to have osteopenia and that was when she was started on the Fosamax and later developed osteonecrosis and have had to had extensive procedures to resolve. Her most recent fall was in 2016 where she fractured her right clavicle and forearm. She has not had a fall since. She does not think her osteopenia is any worse than it was at the time she was treated with Fosamax. She had LKA May/Jun 2023. She is not convinced that she needs to be treated and does not want to risk developing jaw issues. She says her life is on a good place and she does not want to risk it. She walks for exercise. Her risk factors for Osteoporosis includes cancer history with radiation therapy, being a postmenopause, long standing use of PPIs for GERD. She does not take a calcium supplement but takes Vit D3 50 mcg QD. She is fairly active, and denies consumption of alcohol. Patient denies history of eating disorder and other concerns for mal-absorption. She denies inflammatory arthritis and family history of fractures. 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 T score @ spine and femoral Neck respectively were=-2 /-1.9 and 10 year FRAX risk = 20.1/5% for severe osteoporosis and fracture. Presenting for follow-up regarding endometrial cancer status post hysterectomy bilateral salpingo-oophorectomy , stage II endometrial cancer 10 years ago. Since then the patient doing well with no complaint, no vaginal bleeding pelvic pain or any other concerns. CT scan done in 02/09 for different indication showed pelvic viscera within normal Last mammogram was couple of weeks ago, report not available No previous DEXA scan [facility] Medical History (Updated 10/26/23 @ 09:57 by Milo Callahan MD) Depression screen Colon cancer screening Unilateral primary osteoarthritis, unspecified knee Acute cystitis without hematuria H/O malignant neoplasm of parotid gland H/O cancer of uterus Candidiasis, unspecified Essential (primary) hypertension Surgical History (Updated 10/31/23 @ 12:55 by MERY Valentino) History of surgery Hx of hysterectomy Family History Father No problems noted. Mother No problems noted. Social History Household Members: None Household Members Other:: [facility] Housing: Assisted Living Facility Alcohol intake: current Alcohol intake frequency: a few times a week Alcohol type: wine Patient Tobacco Use Status: Never used Tobacco Current occupational status: retired Review of Systems Const All systems reviewed & are unremarkable except as noted in HPI and below Physical Exam Vital Signs: Last Vital Signs Temp 97 F 10/31/23 12:50 Pulse 81 10/31/23 12:50 BP 110/80 10/31/23 12:50 Pulse Ox 95 10/31/23 12:50 Oxygen Delivery Method Room Air 10/31/23 12:50 BMI result Body Mass Index 28.5 Vital signs reviewed. Constitutional: Non-toxic appearing. No acute distress. Well-developed and well-nourished. HEENT: Normocephalic and atraumatic. External auditory canals without erythema or edema bilaterally. Moist mucous membranes. No pharyngeal erythema or exudates. Skin: Warm and dry. No rashes or lesions noted. Surgical scar to right knee Neck: Full and painless range of motion. No cervical lymphadenopathy. Cardio: Regular rate and rhythm. No murmurs, gallops, or rubs. No lower extremity edema. No JVD. Pulmonary: No respiratory distress. No accessory muscle usage. Musculoskeletal: Normal for age range of motion in joints throughout the body. No deformity or other signs of injury. Using walker today due to recent Right knee surgery Neuro: Alert and oriented x4. Cranial nerves 2-12 grossly intact. No focal deficits appreciated. Assessment & Plan Assessment & Plan (1) Osteopenia with high risk of fracture: Comment: History of osteonecrosis of the jaw Code(s): M85.80 - Other specified disorders of bone density and structure, unspecified site Plan #Osteoporosis: The patient does not want to start therapy. She is very concerned about possible osteonecrosis of the Jaw. I agree with the patient. At this time I do not think the patient should begin treatment for Osteoporosis. Given her history (See HPI), the risk far outweighs the benefit. Coding Level of Care Code New Pt Level 3 (07238) Diagnoses Osteopenia with high risk of fracture M85.80
[2023-10-31 12:50] VITALS: BP 110/80; PULSE 81; TEMP 36.1; O2SAT 95; BMI 28.5
== END 2023-10-31 13:47 | disposition home or self-care (01) ==
PROVIDERS: PCP Internal Medicine; Visit Provider Nurse Practitioner Family
DX: M85.80 Other specified disorders of bone density and structure, unspecified site (principal)
CPT/HCPCS: 99203

== ENCOUNTER → 2023-10-31 12:46 | Outpatient (BNVA) | payer MEDICARE, BC, SELFPAY | PROVIDERS: PCP Internal Medicine; Visit Provider Nurse Practitioner Family | DX: M85.80 Other specified disorders of bone density and structure, unspecified site (principal) | CPT/HCPCS: 99202 ==

== ENCOUNTER 2024-01-28 12:53 | Outpatient (AMB) | payer MEDICARE, BC, SELFPAY ==
--- NOTE | 2024-01-28 12:59 | A.OFFVIS_ITS ---
Intake Visit Reasons: 3m follow up Intake Note: Patient presents today for a follow-up UTI: Allergies to Antibiotic: Cephalexin, Clindamycin, Erythromycin base, Nitrofurantoin, Sulfa (Sulfonamide Antibiotics) Blood Thinner: None Swimmer Required: No Accompanied by: Self / Same As Patient Allergies cephalexin [From Keflex] Allergy (Verified 01/28/24 13:01) Unknown clindamycin Allergy (Verified 01/28/24 13:01) Unknown erythromycin base Allergy (Verified 01/28/24 13:01) Unknown mirabegron Allergy (Verified 01/28/24 13:01) Unknown nitrofurantoin [From Macrodantin] Allergy (Verified 01/28/24 13:01) Unknown Sulfa (Sulfonamide Antibiotics) Allergy (Verified 01/28/24 13:01) Unknown Keactus-IAM-NiN Reductase Inhibitor Adverse Reaction (Verified 01/28/24 13:01) Fatigued Medication List - Last Reconciled 01/28/24 by Milo Callahan MD ascorbic acid (vitamin C) ER 500 mg PO DAILY cranberry extract 425 mg PO BID estradiol 0.01%(0.1mg/gram) vaginal lisinopril 40 mg PO DAILY methenamine hippurate (Hiprex) 0.5 grams (1/2 x 1 gram) PO BID nystatin 1 appl topical BID omeprazole 40 mg PO DAILY vibegron (Gemtesa) 75 mg PO DAILY HPI Comments Details: 01/28/2024--Malena is an 88-year-old female who I have been following due to recurrent urinary tract infections. The patient states that she has had some irritation along her right groin. She states at the areas painful she has been using Desitin which helps She states that she had problems with yeast infection in the past. On examination erythematous changes on the skin noted in the crease along the groin consistent with skin candidiasis she is also complaining of using about 6 pads a day she states she gets a strong urge and before getting to the bathroom she will leak. Urinalysis leukocytes negative blood negative. I will prescribe nystatin powder and Gemtesa 75 mg daily, continue Hiprex b.i.d ., vitamin-C, cranberry extract; follow-up in 3 months. Review of chart: 10/26/23--Malena is an 88-year-old female who presents today FU for recurrent UTI's. She was last seen on 10/05/2023, cystoscopy was done at that time. 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 A repeat urine culture was sent and she was empirically treated with Levaquin. Urine culture did come back-- > 100,000 cfu/mL Citrobacter freundii, sensitive to Levaquin. She has brought in a urine specimen that was voided this morning urinalysis resulted negative for UTI. She states that her urine stream has been good, she denies dysuria she still has some urinary frequency. Plan is to start methenamine 500 mg twice a day along with vitamin-C 500 mg daily and cranberry tablets 450 mg twice a day. We will re-evaluate urine in 3 months. 10/05/23 - For cysto today---urine c/s 08/29/23 klebsiella S-to levaquin a quinolone, she was treated with Cipro a quinolone. The patient states that after 5 days of the cipro she started to have a decrease in her irritative voiding but after completing the Cipro the symptoms returned. 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 Persistent Bacteuria, the patient has multiple abx allergies, she has irritative voiding symptoms will trial a longer course of quinolone therapy. repeat urine c/s sent. fu 3 1/2 weeks to recheck urine and pt's symptoms. 08/29/23-- The patient is here for scheduled office cystoscopy. (office cysto canceled as urinalysis is nitrite positive) The patient was initially evaluated on 07/20/2023? a new patient for recurrent UTIs and was sent for renal ultrasound. Patient has a past medical history significant for uterine cancer. She has had in total hysterectomy followed by radiation. The patient complains of intractible urinary urgency/frequency and states she has tried multiple meds in the past. I have discussed sacral neuromodulation as an alternative treatment option regarding this problem. I have reviewed renal ultrasound--kidneys within normal notes Pelvic examination no significant prolapse noted. Catheterized urine 60 mL. No induration or pain on urethral palpation. Urine culture results from 04/26/2023 revealed serratia >>> 100,000 colonies noted. [facility] Medical History Depression screen Colon cancer screening Unilateral primary osteoarthritis, unspecified knee Acute cystitis without hematuria H/O malignant neoplasm of parotid gland H/O cancer of uterus Candidiasis, unspecified Essential (primary) hypertension Surgical History History of surgery Hx of hysterectomy Family History Father No problems noted. Mother No problems noted. Social History Household Members: None Household Members Other:: [facility] Housing: Assisted Living Facility Alcohol intake: current Alcohol intake frequency: a few times a week Alcohol type: wine Patient Tobacco Use Status: Never used Tobacco Current occupational status: retired Review of Systems Const All systems reviewed & are unremarkable except as noted in HPI and below Reports no additional complaints Eyes Reports no additional complaints ENT Reports no additional complaints Card Reports no additional complaints Resp Reports no additional complaints GI Reports no additional complaints Reports as per HPI Musc Reports no additional complaints Skin/Breast Reports system reviewed and no additional complaints, except as documented Neuro Reports no additional complaints Psych Reports no additional complaints Endo Reports no additional complaints Marino/Lymph Reports no additional complaints Aller/Immun Reports no additional complaints Results AMB Urinalysis, Automated UA Leukoctes 0 Dirk/uL Last Edit by MERY Summers on 01/28/24 13:13 UA Nitrite Negative Last Edit by MERY Summers on 01/28/24 13:13 UA Urobilinogen 0.2 mg/dL Last Edit by MERY Summers on 01/28/24 13:1 3 UA Protein 0 mg/dL Last Edit by MERY Summers on 01/28/24 13:13 UA pH 7.5 Last Edit by Enedina Matthews MERY on 01/28/24 13:13 UA Blood 0 Josse/uL Last Edit by Enedina Matthews MERY on 01/28/24 13:13 UA Specific [place] 1.005 Last Edit by Enedina Mtathews MERY on 01/28/24 13: 13 UA Ketone Negative Last Edit by Enedina Matthews Vandana on 01/28/24 13:13 UA Bilirubin 0 mg/dL Last Edit by Enedina Matthews A on 01/28/24 13:13 UA Glucose 0 mg/dL Last Edit by Enedina Matthews [facility] on 01/28/24 13:13 Results Reviewed Results Reviewed: Collected: 10/05/23 Status: COMP Req#: [id number] Received: 10/05/23 Source: [facility] Sp Desc: Urine davis Subm Dr: Milo Callahan MD Ordered: Urine Culture Procedure Result Verified Urine Culture Final 10/08/23 Organism 1 Citrobacter freundii Quant > 100,000 cfu/mL C freundii M.I.C. RX --------- --- Ceftriaxone 0.5 S Gentamicin <=1 S Levofloxacin 0.25 S Nitrofurantoin <=16 S Trimethoprim/Sulfamethoxazole <=20 S Date of Service: 01/24/23 EXAMINATION: CT abdomen pelvis w IV con CLINICAL INFORMATION: Reason for Exam bilateral lower abdominal pain, diarrhea COMPARISON: Prior CT scan from 2013 FINDINGS: LOWER THORAX: There is scar, subsegmental atelectasis at left lung base. Included lung bases otherwise are clear. HEPATOBILIARY: There is tiny 4 mm hypodensity in the right lobe of the liver, too small to characterize, commonly found to be evolving cysts. No suspicious solid liver mass. GALLBLADDER: Gallbladder unremarkable. SPLEEN: Spleen is normal in size. PANCREAS: No focal mass or ductal dilatation. STOMACH AND GASTROINTESTINAL TRACT: Stomach is grossly unremarkable. There are suture line in the colon from prior hemicolectomy. There is fat stranding surrounding loops of small bowel in the left lower quadrant adjacent to the ileocolic anastomosis concerning for ileitis which could be infection or inflammatory. There is no evidence of obstruction or dilatation of the small bowel loops. Please refer to Wilkes image. There is no abscess or loculated the fluid collection. ADRENALS: No adrenal nodules. KIDNEYS/URETERS: No hydronephrosis, stones or solid mass lesions. URINARY BLADDER: Partially decompressed. PELVIC VISCERA: Unremarkable PERITONEUM: There is no free air or fluid. LYMPH NODES: No lymphadenopathy. VASCULAR:Abdominal aorta normal in size, no aneurysm found. BONES, ABDOMINAL WALL AND SOFT TISSUES: Spondylosis of dorsal spine. No fractures. No destructive bone lesion. IMPRESSION: * There is fat stranding surrounding loops of small bowel in the left lower quadrant adjacent to the ileocolic anastomosis concerning for ileitis which could be infection or inflammatory. There is no evidence of obstruction or abscess. Clinical correlation and follow-up recommended. * Postsurgical changes from prior hemicolectomy. Assessment & Plan Assessment & Plan (1) Frequent urinary incontinence: Code(s): N39.498 - Other specified urinary incontinence Category: Medical (2) Urinary urgency: Code(s): R39.15 - Urgency of urination Category: Medical (3) Recurrent UTI: Code(s): N39.0 - Urinary tract infection, site not specified Category: Medical (4) Cystitis: Code(s): N30.90 - Cystitis, unspecified without hematuria Category: Medical Plan nystatin powder and Gemtesa 75 mg daily, continue Hiprex b.i.d., vitamin-C, cranberry extract; follow-up in 3 months. Orders: Orders AMB Urinalysis Automated Today Z13.9 - Encounter for screening, unspecified Medications: New nystatin 1 appl topical BID 60 grams 1RF vibegron (Gemtesa) 75 mg PO DAILY 30 tabs 4RF Patient Instructions: The patient had an opportunity to ask questions regarding treatment plan. The patient expressed understanding and agreement with the above treatment plan. The patient is aware they should contact our office by phone for worsening of their current condition or the appearance of new symptoms. Compliance is encouraged with any medications and followup testing that is ordered. It is a privilege to be allowed the opportunity to participate in the urologic care of your patient. If you have any questions or concerns regarding treatment for the above conditions please do not hesitate to contact me. The office telephone contact is [phone]. This note is constructed in part using voice recognition software. While every effort has been made to ensure accuracy special needs caregiver errors may have been included. Yours sincerely, Milo Callahan MD Coding Level of Care Code Est Pt Level 4 (73620) Diagnoses Frequent urinary incontinence N39.498 Urinary urgency R39.15 Recurrent UTI N39.0 Cystitis N30.90
== END 2024-01-28 13:26 | disposition home or self-care (01) ==
PROVIDERS: Visit Provider Urology
DX: N39.498 Other specified urinary incontinence (principal); R39.15 Urgency of urination; N39.0 Urinary tract infection, site not specified; N30.90 Cystitis, unspecified without hematuria; Z13.9 Encounter for screening, unspecified
CPT/HCPCS: 99214

== ENCOUNTER → 2024-01-28 12:53 | Outpatient (BNVA) | payer MEDICARE, BC, SELFPAY | PROVIDERS: Visit Provider Urology | DX: N30.00 Acute cystitis without hematuria (principal); R39.15 Urgency of urination; N39.498 Other specified urinary incontinence | CPT/HCPCS: 81003; 99212 ==

== ENCOUNTER 2024-04-30 12:34 | Outpatient (REF) | payer MEDICARE, BC, SELFPAY | END 2024-04-30 12:35 | disposition home or self-care (01) | LOC: HO.LNP 12:34 | PROVIDERS: Visit Provider Urology | DX: N39.498 Other specified urinary incontinence (principal); R39.15 Urgency of urination; N30.90 Cystitis, unspecified without hematuria | CPT/HCPCS: 81003; 99212 ==

== ENCOUNTER 2024-04-30 12:34 | Outpatient (AMB) | payer MEDICARE, BC, SELFPAY ==
--- NOTE | 2024-04-30 13:06 | MHC.OFFVIS ---
Intake Visit Reasons: 3m follow up Intake Note: Patient is present for 3m f/u Urology Medication:nystatin, gemtesa, hiprex, vitamin C Antibiotic Allergy:SULFA, ERTHROMYCIN Blood Thinner:NONE Street Light Inspector Required: No Allergies cephalexin [From Keflex] Allergy (Verified 04/30/24 13:10) Unknown clindamycin Allergy (Verified 04/30/24 13:10) Unknown erythromycin base Allergy (Verified 04/30/24 13:10) Unknown mirabegron Allergy (Verified 04/30/24 13:10) Unknown nitrofurantoin [From Macrodantin] Allergy (Verified 04/30/24 13:10) Unknown Sulfa (Sulfonamide Antibiotics) Allergy (Verified 04/30/24 13:10) Unknown Kziicyh-VLJ-UgY Reductase Inhibitor Adverse Reaction (Verified 04/30/24 13:10) Fatigued Medication List - Last Reconciled 04/30/24 by Milo Callahan MD ascorbic acid (vitamin C) ER 500 mg PO DAILY ciprofloxacin HCl 500 mg PO BID cranberry extract 425 mg PO BID estradiol 0.01%(0.1mg/gram) vaginal lisinopril 40 mg PO DAILY methenamine hippurate (Hiprex) 0.5 grams (1/2 x 1 gram) PO BID omeprazole 40 mg PO DAILY vibegron (Gemtesa) 75 mg PO DAILY HPI Comments Details: 04/30/24--Malena is here for FU. She states the gemtesa is working well. UA - nitrite positive. urine c/s. Cipro 500mg bid for 7 dys. Renal ultrasound 09/08/2023 simple cyst otherwise negative for kidney stones or hydronephrosis. Continue Hiprex and cranberry. The patient has multiple allergies to antibiotics will not trial a suppressive antibiotic. Review of chart: 01/28/2024--Malena is an 88-year-old female who I have been following due to recurrent urinary tract infections. The patient states that she has had some irritation along her right groin. She states at the areas painful she has been using Desitin which helps She states that she had problems with yeast infection in the past. On examination erythematous changes on the skin noted in the crease along the groin consistent with skin candidiasis she is also complaining of using about 6 pads a day she states she gets a strong urge and before getting to the bathroom she will leak. Urinalysis leukocytes negative blood negative. I will prescribe nystatin powder and Gemtesa 75 mg daily, continue Hiprex b.i.d., vitamin-C, cranberry extract; follow-up in 3 months. 10/26/23--Malena is an 88-year-old female who presents today FU for recurrent UTI's. She was last seen on 10/05/2023, cystoscopy was done at that time. 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 A repeat urine culture was sent and she was empirically treated with Levaquin. Urine culture did come back-- > 100,000 cfu/mL Citrobacter freundii, sensitive to Levaquin. She has brought in a urine specimen that was voided this morning urinalysis resulted negative for UTI. She states that her urine stream has been good, she denies dysuria she still has some urinary frequency. Plan is to start methenamine 500 mg twice a day along with vitamin-C 500 mg daily and cranberry tablets 450 mg twice a day. We will re-evaluate urine in 3 months. 10/05/23 - For cysto today---urine c/s 08/29/23 klebsiella S-to levaquin a quinolone, she was treated with Cipro a quinolone. The patient states that after 5 days of the cipro she started to have a decrease in her irritative voiding but after completing the Cipro the symptoms returned. 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 Persistent Bacteuria, the patient has multiple abx allergies, she has irritative voiding symptoms will trial a longer course of quinolone therapy. repeat urine c/s sent. fu 3 1/2 weeks to recheck urine and pt's symptoms. 08/29/23-- The patient is here for scheduled office cystoscopy. (office cysto canceled as urinalysis is nitrite positive) The patient was initially evaluated on 07/20/2023? a new patient for recurrent UTIs and was sent for renal ultrasound. Patient has a past medical history significant for uterine cancer. She has had in total hysterectomy followed by radiation. The patient complains of intractible urinary urgency/frequency and states she has tried multiple meds in the past. I have discussed sacral neuromodulation as an alternative treatment option regarding this problem. I have reviewed renal ultrasound--kidneys within normal notes Pelvic examination no significant prolapse noted. Catheterized urine 60 mL. No induration or pain on urethral palpation. Urine culture results from 04/26/2023 revealed serratia >>> 100,000 colonies noted. [facility], [facility] Medical History Depression screen Colon cancer screening Unilateral primary osteoarthritis, unspecified knee Acute cystitis without hematuria H/O malignant neoplasm of parotid gland H/O cancer of uterus Candidiasis, unspecified Essential (primary) hypertension Surgical History History of surgery Hx of hysterectomy Family History Father No problems noted. Mother No problems noted. Social History Household Members: None Household Members Other:: [facility] Housing: Assisted Living Facility Alcohol intake: current Alcohol intake frequency: a few times a week Alcohol type: wine Patient Tobacco Use Status: Never used Tobacco Current occupational status: retired Review of Systems Const All systems reviewed & are unremarkable except as noted in HPI and below Reports no additional complaints Eyes Reports no additional complaints ENT Reports no additional complaints Card Reports no additional complaints Resp Reports no additional complaints GI Reports no additional complaints Reports as per HPI Musc Reports no additional complaints Skin/Breast Reports system reviewed and no additional complaints, except as documented Neuro Reports no additional complaints Psych Reports no additional complaints Endo Reports no additional complaints Marino/Lymph Reports no additional complaints Aller/Immun Reports no additional complaints Results AMB Urinalysis, Automated UA Leukoctes 125 Dirk/uL Last Edit by EUSEBIA Drake on 04/30/24 13:18 UA Nitrite Positive Last Edit by EUSEBIA Drake on 04/30/24 13:18 UA Urobilinogen 0.2 mg/dL Last Edit by EUSEBIA Drake on 04/30/24 13:18 UA Protein 0 mg/dL Last Edit by EUSEBIA Drake on 04/30/24 13:18 UA pH 6.0 Last Edit by EUSEBIA Drake on 04/30/24 13:18 UA Blood 0 Josse/uL Last Edit by EUSEBIA Drake on 04/30/24 13:18 UA Specific [place] 1.015 Last Edit by Justice Gupta CCM on 04/30/24 13:18 UA Ketone Negative Last Edit by Justice Gupta CCM on 04/30/24 13:18 UA Bilirubin 0 mg/dL Last Edit by Justice Gupta [facility] on 04/30/24 13:18 UA Glucose 0 mg/dL Last Edit by Justice Gupta CCM on 04/30/24 13:18 Results Reviewed Results Reviewed: Laboratory Last Values Urine pH (Auto) 6.0 04/30/24 13:17 Specific [place] (Auto) 1.015 04/30/24 13:17 Urine Protein (Auto) 0 mg/dL 04/30/24 13:17 Glucose (UA)(Auto) 0 mg/dL 04/30/24 13:17 Urine Ketones (Auto) Negative 04/30/24 13:17 Urine Blood (Auto) 0 Josse/uL 04/30/24 13:17 Urine Nitrite (Auto) Positive 04/30/24 13:17 Urine Bilirubin (Auto) 0 mg/dL 04/30/24 13:17 Urine Urobilinogen (Auto) 0.2 mg/dL 04/30/24 13:17 Leukocyte Esterase (Auto) 125 Dirk/uL 04/30/24 13:17 Collected: 10/05/23-1322 Status: COMP Req#: [id number] Received: 10/05/23-1816 Source: [facility] Sp Desc: Urine davis Subm Dr: Milo Callahan MD Ordered: Urine Culture Procedure Result Verified Urine Culture Final 10/08/23 Organism 1 Citrobacter freundii Quant > 100,000 cfu/mL C freundii M.I.C. RX --------- --- Ceftriaxone 0.5 S Gentamicin <=1 S Levofloxacin 0.25 S Nitrofurantoin <=16 S Trimethoprim/Sulfamethoxazole <=20 S Date of Service: 08/21/23 EXAMINATION: US RETROPERITONEAL LIMITED (RENAL ONLY) CLINICAL INFORMATION: Urinary tract infection, site not specified. COMPARISON: CT abdomen and pelvis 01/24/2023. Ultrasound kidneys and bladder 06/01/2015. TECHNIQUE: Real-time imaging of the kidneys. Limited visualization due to bowel gas. FINDINGS: RIGHT KIDNEY: 10.8 x 4.8 x 5.7 cm (SAG x AP x TRV). No hydronephrosis. No renal calculi. Renal cortical thickness is normal. Limited visualization. LEFT KIDNEY: 10.6 x 5.4 x 5.0 cm (SAG x AP x TRV). No hydronephrosis. No renal calculi. Renal cortical thickness is normal. Limited visualization. Medial 0.6 cm cyst with benign features. There is no indication for follow-up imaging. IMPRESSION: There is a 0.6 cm left renal cyst with benign features. There is no indication for follow-up imaging. Date of Service: 01/24/23 EXAMINATION: CT abdomen pelvis w IV con CLINICAL INFORMATION: Reason for Exam bilateral lower abdominal pain, diarrhea COMPARISON: Prior CT scan from 2012 FINDINGS: LOWER THORAX: There is scar, subsegmental atelectasis at left lung base. Included lung bases otherwise are clear. HEPATOBILIARY: There is tiny 4 mm hypodensity in the right lobe of the liver, too small to characterize, commonly found to be evolving cysts. No suspicious solid liver mass. GALLBLADDER: Gallbladder unremarkable. SPLEEN: Spleen is normal in size. PANCREAS: No focal mass or ductal dilatation. STOMACH AND GASTROINTESTINAL TRACT: Stomach is grossly unremarkable. There are suture line in the colon from prior hemicolectomy. There is fat stranding surrounding loops of small bowel in the left lower quadrant adjacent to the ileocolic anastomosis concerning for ileitis which could be infection or inflammatory. There is no evidence of obstruction or dilatation of the small bowel loops. Please refer to Wilkes image. There is no abscess or loculated the fluid collection. ADRENALS: No adrenal nodules. KIDNEYS/URETERS: No hydronephrosis, stones or solid mass lesions. URINARY BLADDER: Partially decompressed. PELVIC VISCERA: Unremarkable PERITONEUM: There is no free air or fluid. LYMPH NODES: No lymphadenopathy. VASCULAR:Abdominal aorta normal in size, no aneurysm found. BONES, ABDOMINAL WALL AND SOFT TISSUES: Spondylosis of dorsal spine. No fractures. No destructive bone lesion. IMPRESSION: * There is fat stranding surrounding loops of small bowel in the left lower quadrant adjacent to the ileocolic anastomosis concerning for ileitis which could be infection or inflammatory. There is no evidence of obstruction or abscess. Clinical correlation and follow-up recommended. * Postsurgical changes from prior hemicolectomy. Assessment & Plan Assessment & Plan (1) Frequent urinary incontinence: Code(s): N39.498 - Other specified urinary incontinence Category: Medical (2) Urinary urgency: Code(s): R39.15 - Urgency of urination Category: Medical (3) Recurrent UTI: Code(s): N39.0 - Urinary tract infection, site not specified Category: Medical (4) Cystitis: Code(s): N30.90 - Cystitis, unspecified without hematuria Category: Medical Plan gemtesa is working well. UA - nitrite positive. urine c/s. Cipro 500mg bid for 7 dys. Continue Hiprex and cranberry. The patient has multiple allergies to antibiotics will not trial a suppressive antibiotic. Orders: Orders Urine Culture Today N39.0 - Urinary tract infection, site not specified AMB Urinalysis Automated Today Z13.9 - Encounter for screening, unspecified Medications: New ciprofloxacin HCl pt to stop hiprex while on cipro 500 mg PO BID 14 tabs 0RF Refilled vibegron (Gemtesa) 75 mg PO DAILY 30 tabs 7RF cranberry extract administer with meals 425 mg PO BID 60 caps 7RF Patient Instructions: The patient had an opportunity to ask questions regarding treatment plan. The patient expressed understanding and agreement with the above treatment plan. The patient is aware they should contact our office by phone for worsening of their current condition or the appearance of new symptoms. Compliance is encouraged with any medications and followup testing that is ordered. It is a privilege to be allowed the opportunity to participate in the urologic care of your patient. If you have any questions or concerns regarding treatment for the above conditions please do not hesitate to contact me. The office telephone contact is [phone]. This note is constructed in part using voice recognition software. While every effort has been made to ensure accuracy ball point splitter errors may have been included. Yours sincerely, Milo Callahan MD Coding Level of Care Code Est Pt Level 4 (71840) Diagnoses Frequent urinary incontinence N39.498 Urinary urgency R39.15 Recurrent UTI N39.0 Cystitis N30.90
== END 2024-04-30 13:43 | disposition home or self-care (01) ==
PROVIDERS: Visit Provider Urology
DX: N39.498 Other specified urinary incontinence (principal); R39.15 Urgency of urination; N39.0 Urinary tract infection, site not specified; N30.90 Cystitis, unspecified without hematuria; Z13.9 Encounter for screening, unspecified
CPT/HCPCS: 99214

== ENCOUNTER 2024-05-01 09:45 | Outpatient (REF) | payer MEDICARE, BC, SELFPAY | END 2024-05-01 09:46 | disposition home or self-care (01) | LOC: HO.HMGCLNP 09:45 | PROVIDERS: Visit Provider Urology | DX: N39.0 Urinary tract infection, site not specified (principal) | CPT/HCPCS: 87086; 87088; 87186 ==

== ENCOUNTER 2024-07-28 13:09 | Outpatient (AMB) | payer MEDICARE, BC, SELFPAY ==
--- NOTE | 2024-07-28 13:40 | A.OFFVIS_ITS ---
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 Tech Required: No Information Interpreted: non-clinical & clinical Printed Circuit Board Layout Designer: Printed Circuit Board Layout Designer Present (Roxana Brandt ORDONEZ) Accompanied by: Self / Same As Patient Allergies cephalexin [From Keflex] Allergy (Verified 07/28/24 13:52) Unknown clindamycin Allergy (Verified 07/28/24 13:52) Unknown erythromycin base Allergy (Verified 07/28/24 13:52) Unknown mirabegron Allergy (Verified 07/28/24 13:52) Unknown nitrofurantoin [From Macrodantin] Allergy (Verified 07/28/24 13:52) Unknown Sulfa (Sulfonamide Antibiotics) Allergy (Verified 07/28/24 13:52) Unknown Txggyzi-KJD-JdS Reductase Inhibitor Adverse Reaction (Verified 07/28/24 13:52) Fatigued Post menopausal: Yes HPI Comments Details: The patient is presenting for annual exam, she has history of endometrial cancer status post hysterectomy bilateral salpingo-oophorectomy , stage II endometrial cancer 10 years ago. Since then the patient doing well with no complaint, no vaginal bleeding pelvic pain or any other concerns. 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 Mother No problems noted. Social History Household Members: None Household Members Other:: [facility] Housing: Assisted Living Facility Alcohol intake: current Alcohol intake frequency: a few times a week Alcohol type: wine Patient Tobacco Use Status: Never used Tobacco Current occupational status: retired Female Reproductive History Menstrual Menopause type: surgical Date of Mammogram: 07/16/23 Review of Systems Const All systems reviewed & are unremarkable except as noted in HPI and below Card Reports as per HPI Resp Reports as per HPI GI Reports as per HPI and Reports no additional complaints Reports as per HPI Physical Exam Vital Signs: Last Vital Signs BP 124/86 07/28/24 13:41 BMI result Body Mass Index 29.0 Const General: cooperative, healthy appearing and comfortable Chest Breast/axilla inspection: normal inspection of the breasts (Left breast within normal, right breast surgical removed) and normal inspection of the axillae Breast/axilla palpation: normal palpation of the breasts (Left breast, right breast surgically removed), normal palpation of the axillae and no axillary lymphadenopathy Resp Effort & Inspection: normal respiratory effort Auscultation: clear to auscultation bilaterally Percussion: percussion normal Cardio Palpation: normal PMI Rate: regular rate Rhythm: regular rhythm Heart sounds: no murmurs and no rubs Peripheral pulses: Peripheral pulses 2+ throughout GI Inspection: Yes normal to inspection Palpation (GI): Soft to palpation, nontender, no guarding, not rigid and No hepatosplenomegaly present Percussion: Yes normal to percussion Auscultation: normal bowel sounds Rectal Exam - Female: deferred General: Yes bladder normal to palpation External Female Exam: No lesion Speculum Exam - Vagina: normal appearance of the vagina, normal palpation, normal vaginal discharge and not erythematous Speculum Exam - Cervix: normal appearance of the cervix and normal palpation Bimanual exam- vagina & uterus: normal bimanual exam, normal palpation, uterine size normal, bladder normal to palpation, consistency normal and normal palpation Bimanual Exam- Adnexa, other: normal adnexae, no masses and no tenderness Assessment & Plan Assessment & Plan (1) Well woman exam: Code(s): Z01.419 - Encounter for gynecological examination (general) (routine) without abnormal findings Category: Medical Plan: Co testing not indicated Counseled the patient about the recommended dietary allowance of 1200 mg of Calcium & 800 IU of vitamin D. Mammogram scheduled in 2 days. The patient was instructed to perform monthly self-breast exams and to schedule an annual exam in a year; All questions answered and the patient verbalized understanding. Coding Level of Care Code Est Pt Prev Care >65y(16120) Diagnoses Well woman exam Z01.419
[2024-07-28 13:41] VITALS: BP 124/86; BMI 29.0
--- OUTSIDE RECORDS SUMMARY | 2024-07-30 15:35 | XMS_ITS ---
Author Organization Devin Morgan MD Address [address] [facility] [address] [place] [phone] Care Team Providers Care Bale Sewer Name Role Phone Devin Morgan Primary Care Provider REASON FOR VISIT ? premedicate Encounters Encounter Location Date Provider Diagnosis Devin Morgan MD [address] [facility] [address] [place] [phone] 07/01/2024 Devin Morgan PLAN OF TREATMENT Next Appt Details Provider Name:Devin wilson, 10/27/2024 01:30:00 PM, [address] [place] [address], [place] [address], [place], [place], [phone], Provider Name:Devin wilson, 04/21/2025 08:30:00 AM, [address] [place] [address], [address], [phone], Provider Name:Devin wilson, 04/27/2025 02:30:00 PM, [address] [place] [address], [address], [phone],
--- OUTSIDE RECORDS SUMMARY | 2024-07-30 15:35 | XMS_ITS ---
Author Organization Devin Morgan MD Address [address] [place], [place] [phone] Care Team Providers Care Ribbon Hand Name Role Phone Devin Morgan Primary Care Provider [phone] ALLERGIES Allergen (clinical drug ingredient) Drug/Non Drug Allergy documented on EMR Reaction Allergy Type Onset Date Status clindamycin Clindamycin Unknown Drug Allergy Act tommy atorvastatin Atorvastatin fatigue Drug Allergy A ctive Keflex Unknown Drug Allergy Active erythromycin Erythromycin Unknown Drug Allergy A ctive sulfamethoxazole / trimethoprim Bactrim DS Unknown Drug Allergy Active 12 Hour Nasal [place] Unknown Drug Allergy Active REASON FOR VISIT 4 week, check rash under left breast MEDICATIONS Medication SIG (Take, Route, Frequency, Duration) Notes Start Date End Date Status Lisinopril-hydroCHLOROth iazide 20-12.5 MG 1 tablet Orally Once a day for 30 day(s) 05/19/2024 Active Omeprazole 40 MG TAKE ONE CAPSULE BY MOUTH EVERY MORNING ON EMPTY STOMACH AT LEAST 30 MINUTES BEFORE BREAKFAST for 90 Active Econazole Nitrate 1 % 1 application Exte rnally Once a day for 7 day(s) 04/30/2023 Not-Taki ng Nystatin 496192 UNIT/GM 1 application Ex ternally Twice a day for 30 days 06/17/2024 Active Gemtesa 75 MG 1 tablet Orally Once a day for 30 day(s) Active Estrace 0.1 MG/GM as directed Vaginal Once a day for 90 days Active VITAL SIGNS BMI 29.29 kg/m2 06/17/2024 Blood pressure systolic 148 mm Hg 06/17/20 24 Blood pressure diastolic 90 mm Hg 024 Height 63.5 in 06/17/2024 Weight 168 lbs 06/17/2024 Encounters Encounter Location Date Provider Diagnosis Devin Morgan MD [address] [place] [address] [place] [phone] 06/17/2024 Devin Morgan Skin yeast infection B37.2 and Essential hypertension I10 ASSESSMENTS Encounter Date Diagnosis Assessment Notes Treatment Notes Treatment Clinical Notes 06/17/2024 Skin yeast infection (ICD-10 - B37.2) patient verbalized medication and directions for use 06/17/2024 Essential hypertension (ICD-10 - I10) is a little high but had good readings at home, will continue curent regiment and will continue to monitor PLAN OF TREATMENT Medication Medication Name Sig Start Date Stop Date Notes Nystatin 537433 UNIT/GM 1 application Ex ternally Twice a day for 30 days 06/17/2024 Treatment Notes Assessment Notes Skin yeast infection patient verbalized medication and directions for use Essential hypertension is a little high but had good readings at home, will continue curent regiment and will continue to monitor Next Appt Details Provider Name:Devin wilson, 10/27/2024 01:30:00 PM, [address] [place] [address], [address], [phone], Provider Name:Devin wilson, 04/21/2025 08:30:00 AM, [address] [place] [address], [place] [address], [place], [place], [phone], Provider Name:Devin wilson, 04/27/2025 02:30:00 PM, [address] [place] [address], [address], [phone], Progress Notes * Examination Category Sub-Category Detail Notes General Examination GENERAL APPEARANCE: alert, w ell hydrated, in no distress , elderly, male HEAD: normocephalic HEART: no murmurs, rubs, ga llops, regular rate and rhythm LUNGS: no wheezes, rales, r honchi, good air movement, clear to auscultation bilaterally SKIN: abnormal with rash b elow left breast and in rt axilla
--- OUTSIDE RECORDS SUMMARY | 2024-07-30 15:35 | XMS_ITS | Patient Health Record ---
Author Organization Devin Morgan MD Address [address] [place], [place] [phone] Care Team Providers Care Server Security Administrator Name Role Phone Devin Morgan Primary Care Provider ALLERGIES Allergen (clinical drug ingredient) Drug/Non Drug Allergy documented on EMR Reaction Allergy Type Onset Date Status clindamycin Clindamycin Unknown Drug Allergy Act tommy atorvastatin Atorvastatin fatigue Drug Allergy A ctive Keflex Unknown Drug Allergy Active erythromycin Erythromycin Unknown Drug Allergy A ctive sulfamethoxazole / trimethoprim Bactrim DS Unknown Drug Allergy Active 12 Hour Nasal [place] Unknown Drug Allergy Active RESULTS Component Value Reference Range Notes US renal BI Reviewed date:08/22/2023 04:32:00 PM Interpretation: Performing Lab: Notes/Report: [address] [address] Ultrasound Report Signed Patient: Malena Lenz MR#: [id number] : 1935 Acct:[id number] Age/Sex: 88 / F ADM Date: 08/21/23 Loc: HO.US Attending Dr: Milo Callahan MD Ordering Physician: Milo Callahan MD Date of Service: 08/21/23 Procedure(s): US renal BI Accession Number(s): [id number] cc: Milo Callahan MD; Devin Morgan MD [...] in OV> 08/22/23 0614 DD/ 1601 TD/TT: Radiology Rn: XR DEXA axial skeleton Reviewed date:08/25/2023 05:25:44 PM Interpretation: Performing Lab: Notes/Report: [facility] [address] [place] [address] Mammography Report Signed Patient: Malena Lenz MR#: [id number] : 1935 Acct:[id number] Age/Sex: 88 / F ADM Date: 08/24/23 Loc: HO.MAMMO Attending Dr: Alton Caba MD Ordering Physician: Alton Caba MD Results: Date of Service: 08/24/23 Follow Up: Procedure(s): XR DEXA axial skeleton Accession Number(s): [id number] cc: Devin Morgan MD; Alton Caba MD EXAMINATION: BONE DENSITOMETRY CLINICAL INDICATION: Asymptomatic menopausal state. COMPARISON: This is the patient's baseline examination. TECHNIQUE: Using a [email or web address] DXA System (software version: 13.1) manufactured by [employer], dual-energy x-ray absorptiometry was performed of the [...] in OV> 08/24/23 1726 DD/ 1410 TD/TT: Radiology Rn: TOM Occult Blood, Stool, Guaiac Reviewed date:04/24/2024 02:26:11 PM Interpretation:Negative Performing Lab: Notes/Report: Negative Occult Blood, Stool, Guaiac Neg REASON FOR REFERRAL Reason HISTORY OF COLON CAN CER Diagnosis 1 History of colon can cer (Z85.038) Referral Organization Devin Morgan MD Referring Provider First Name Devin Referring Provider Last Name Cathy Referring Provider Speciality Internal M edicine Referred Provider Glenroy Odom Referred Provider Specialty Gastroentero logy General Notes Coby Wilhelm 04/24/2024 02:14:34 PM EDT > REFERRAL FAXED TO [facility] 05/01/2024 11:22:53 AM EDT > PER [facility], THEY HAVE LEFT A COUPLE OF MESSAGES FOR HER TO CALL THEIR OFFICE BUT THEY HAVE NOT HEARD BACK. I ALSO LEFT HER A MESSAGE TODAY TO CALL [facility] 05/02/2024 09:37:24 AM EDT > MALENA CALLED [facility] AND HER APPT IS Jul AT 11:20AM Referral Priority Routine Referral Appointment Date 07/23/2024 MEDICATIONS Medication SIG (Take, Route, Frequency, Duration) [...] for 7 day(s) 04/30/2023 Not-Taki ng Nystatin 642938 UNIT/GM 1 application Ex ternally Twice a [...] Essential hypertension (I10) Active confirmed Essential hypertension (97503937) Problem History of colon cancer (Z85.038) Active confirmed History of malignant neoplasm of colon (304028509) Problem History of uterine cancer (Z85.42) Active confirmed 342886465 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 783136543840490 Problem 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) Active confirmed 289934287 VITAL SIGNS Blood pressure diastolic 90 mm Hg 06/17/2024 Height 63.5 in 06/17/2024 Blood pressure systolic 148 mm Hg 06/17/2024 Weight 168 lbs 06/17/2024 BMI 29.29 kg/m2 06/17/2024 Encounters Encounter Location Date Provider Diagnosis Devin Morgan MD [address] [place] [id number] 04/24/2024 Devin Morgan History of colon cancer Z85.038 ; Essential hypertension I10 ; Colon cancer screening Z12.11 and Depression screening Z13.31 Devin Morgan MD [address] [place] [id number] 04/18/2024 Devin Morgan Essential hypertension I10 Devin Morgan MD [address] [place] [id number] 08/30/2023 Devin Morgan History of colon cancer Z85.038 ; Essential hypertension I10 and Dizzinesses R42 Devin Morgan MD [address] [place] [id number] 12/28/2023 Devin Morgan Essential hypertension I10 and Unexplained night sweats R61 Devin Morgan MD [address] [place] [address] [id number] 06/17/2024 Devin Morgan Skin yeast infection B37.2 and Essential hypertension I10 Devin Morgan MD [address] [place] [address] [id number] 05/19/2024 Devin Morgan Essential hypertension I10 Devin Morgan MD [address] [place] [address] [id number] 08/24/2023 Devin Morgan MD [address] [place] [id number] 07/01/2024 Devin Morgan ASSESSMENTS Encounter Date Diagnosis Assessment Notes Treatment Notes Treatment Clinical Notes 04/24/2024 Essential hypertension (ICD-10 - I10) is a little high today, will contnue current regiment and will continue to monitor 04/24/2024 History of colon cancer (ICD-10 - Z85.038) referral to dr garcia or jacy/ REFFERAL MADE TO DR ODOM AND IT WILL BE FAXED 04/18/2024 Essential hypertension (ICD-10 - I10) 08/30/2023 Essential hypertension (ICD-10 - I10) well controlled, will continue current regiment 08/30/2023 History of colon cancer (ICD-10 - Z85.038) had ct chest abdomen at [facility]. NEED results need notes from shadi at [facility]/ sent request for records for Dr. Vargas/ CT chest scanned in chart 12/28/2023 Essential hypertension (ICD-10 - I10) stable, will continue current regiment 12/28/2023 Unexplained night sweats (ICD-10 - R61) has gone away at present will observe 06/17/2024 Essential hypertension (ICD-10 - I10) is a little high but had good readings at home, will continue curent regiment and will continue to monitor 06/17/2024 Skin yeast infection (ICD-10 - B37.2) patient verbalized medication and directions for use 05/19/2024 Essential hypertension (ICD-10 - I10) patient verbalized undestanding of change in medication and directions for use 04/24/2024 Colon cancer screening (ICD-10 - Z12.11) guaiac negative 08/30/2023 Dizzinesses (ICD-10 - R42) is doing better by playing piano, will continue to monitor 04/24/2024 Depression screening (ICD-10 - Z13.31) negative screen PLAN OF TREATMENT Pending Test Test Name Order Date XR CHEST 2 VIEW PA & LAT 04/30/2023 Next Appt Details Provider Name:Devinrobby Malone ier, 10/27/2024 01:30:00 PM, [address] [place] [address], [address], [place], [place], [phone], Provider Name:Devin Malone ier, 04/21/2025 08:30:00 AM, [address] [place] [address], [address], [place], [place], [phone], Provider Name:Devinrobby Malone ier, 04/27/2025 02:30:00 PM, [address] [place] [address], [address], [place], [place], [phone], Insurance Providers Payer Name Payer Address Payer Phone Subscriber Number Group Number Insured Name Patient Relationship to Insured Coverage Start Date Coverage End Date MEDICARE NHIC [address] [place] [address] [id number] Malena Lenz Self - patient is the insured [employer] [address] [place], [place] [id number] [phone] [id number] Malena Lenz Self - patient is the insured
--- OUTSIDE RECORDS SUMMARY | 2024-07-30 15:35 | XMS_ITS | Patient Health Record ---
Author Organization [facility] Address [address] [place] [address] Care Team Providers Care District Resource Officer Name Role Phone Devin Morgan MD Primary Care Provider Glenroy Corbin Jr Unavailable ALLERGIES Allergen (clinical drug ingredient) Drug/Non Drug Allergy documented on EMR Reaction Allergy Type Onset Date Status Substance with 8-thecmfx-9-methylglutary l-coenzyme A reductase inhibitor mechanism of action (substance) Statins Unknown Drug Allergy Active Keflex Unknown Drug Allergy Active Erythrocin Unknown Drug Allergy Active sulfamethoxazole / trimethoprim Bactrim Unknown Drug Allergy Active clynamyacin (uncoded) Unknown Allergy Active REASON FOR REFERRAL No Information MEDICATIONS Medication SIG (Take, Route, Frequency, Duration) Notes Start Date End Date Status Lisinopril-hydroCHLOROthiaz jin 20-12.5 MG TAKE ONE TABLET BY MOUTH EVERY DAY Oral for 30 Active Gemtesa 75 MG Oral for 30 Acti ve Cranberry Juice Powder 425 MG TAKE ONE CAPSULE BY MOUTH TWICE A DAY WITH MEALS Oral for 30 Active Dicyclomine HCl 10 MG 1 tablet Orally 2- 4 times a day 07/23/2024 Active Omeprazole 40 MG Oral for 90 A ctive Methenamine Hippurate 1 GM 1 tablet Oral ly Twice a day for 10 day(s) 07/23/2024 Active IMMUNIZATIONS Vaccine Route Administration Date Status Comme nts Influenza Unknown 07/01/2024 Administered SOCIAL HISTORY Tobacco Use: Social History Observation Description Date Details (start date - stop date) Never Smoker NA - NA Sex Assigned At : Social History Observation Description Sex Assigned At Unknown Tobacco Use/Smoking Question Answer Notes Patient is a nonsmoker Alcohol Screen Question Answer Notes Did you have a drink containing alcohol in the p ast year? No Points 0 Interpretation Negative VITAL SIGNS Temperature 96.0 degrees Fahrenheit 07/23/2024 Blood pressure diastolic 00 mm Hg 07/23/2024 Height 5 ft 3.5 in in 07/23/2024 Blood pressure systolic 000 mm Hg 07/23/2024 Weight 161 lbs 07/23/2024 BMI 28.07 kg/m2 07/23/2024 Encounters Encounter Location Date Provider Diagnosis [facility] [address] [place] [address] 07/23/2024 Glenroy Velarde Jr Generalized abdominal pain R10.84 ASSESSMENTS Encounter Date Diagnosis Assessment Notes Treatment Notes Treatment Clinical Notes 07/23/2024 Generalized abdominal pain (ICD-10 - R10.84) PLAN OF TREATMENT No Information Insurance Providers Payer Name Payer Address Payer Phone Subscriber Number Group Number Insured Name Patient Relationship to Insured Coverage Start Date Coverage End Date MEDICARE OF [place] [address] [place] [address] [id number] NIXON FAIRBANKS Self - patient is the insured [facility] [address] [place] [address] [phone] [id number] NIXON FAIRBANKS Self - patient is the insured MEDICAL (GENERAL) HISTORY Medical History History ICD Code high blood pressure high cholesterol Surgical History Surgery Date(Month/Year) caratoid surgery left side right breast removed knee surgery right
--- OUTSIDE RECORDS SUMMARY | 2024-07-30 15:35 | XMS_ITS ---
Author Organization Devin Morgan MD Address [address] [place] [phone] Care Team Providers Care Regional Education Coordinator Name Role Phone Devin Morgan Primary Care Provider ALLERGIES Allergen (clinical drug ingredient) Drug/Non Drug Allergy documented on EMR Reaction Allergy Type Onset Date Status clindamycin Clindamycin Unknown Drug Allergy Act tommy atorvastatin Atorvastatin fatigue Drug Allergy A ctive Keflex Unknown Drug Allergy Active erythromycin Erythromycin Unknown Drug Allergy A ctive sulfamethoxazole / trimethoprim Bactrim DS Unknown Drug Allergy Active 12 Hour Nasal [place] Unknown Drug Allergy Active REASON FOR VISIT P running high all weekend MEDICATIONS Medication SIG (Take, Route, Frequency, Duration) Notes Start Date End Date Status Estrace 0.1 MG/GM as directed Vaginal Once a day for 90 days Active Omeprazole 40 MG 1 capsule 30 minutes before morning meal Orally Once a day for 90 days Active Lisinopril-hydroCHLOROth iazide 20-12.5 MG 1 tablet Orally Once a day for 30 day(s) 05/19/2024 Active Econazole Nitrate 1 % 1 application Exte rnally Once a day for 7 day(s) 04/30/2023 Not-Taki ng Gemtesa 75 MG 1 tablet Orally Once a day for 30 day(s) Active VITAL SIGNS BMI 29.46 kg/m2 05/19/2024 Blood pressure systolic 166 mm Hg 05/19/20 24 Blood pressure diastolic 98 mm Hg 024 Height 63.5 in 05/19/2024 Weight 169 lbs 05/19/2024 Encounters Encounter Location Date Provider Diagnosis Devin Morgan MD [address] [place], [place] [phone] 05/19/2024 Devin Morgan Essential hypertension I10 ASSESSMENTS Encounter Date Diagnosis Assessment Notes Treatment Notes Treatment Clinical Notes 05/19/2024 Essential hypertension (ICD-10 - I10) patient verbalized undestanding of change in medication and directions for use PLAN OF TREATMENT Medication Medication Name Sig Start Date Stop Date Notes Lisinopril-hydroCHLOROthiazi de 20-12.5 MG 1 tablet Orally Once a day for 30 day(s) 05/19/2024 Lisinopril 40 MG TAKE ONE TABLET BY M OUTH EVERY DAY Treatment Notes Assessment Notes Essential hypertension patient verbalize d undestanding of change in medication and directions for use Next Appt Details Follow Up: 4 Weeks, Reason: Provider Name:Devin wilson, 10/27/2024 01:30:00 PM, [address] [place] [address], [phone], Provider Name:Devin wilson, 04/21/2025 08:30:00 AM, [address] [place] [address], [phone], Provider Name:Devin wilson, 04/27/2025 02:30:00 PM, [address] [place] [address], [address], [phone], Progress Notes * Examination Category Sub-Category Detail Notes General Examination GENERAL APPEARANCE: alert, w ell hydrated, in no distress HEAD: normocephalic HEART: regular rate and rhy thm, no murmurs, rubs, gallops LUNGS: no wheezes, rales, r honchi, good air movement, clear to auscultation bilaterally SKIN: good turgor
--- OUTSIDE RECORDS SUMMARY | 2024-07-30 15:35 | XMS_ITS ---
Author Organization [facility] Address [address] [place] [address] Care Team Providers Care Mechanic Sound Technician Name Role Phone Devin Morgan MD Primary Care Provider Glenroy Corbin Jr Unavailable ALLERGIES Allergen (clinical drug ingredient) Drug/Non Drug Allergy documented on EMR Reaction Allergy Type Onset Date Status Substance with 4-qwdwyex-9-methylglutary l-coenzyme A reductase inhibitor mechanism of action (substance) Statins Unknown Drug Allergy Active Keflex Unknown Drug Allergy Active Erythrocin Unknown Drug Allergy Active sulfamethoxazole / trimethoprim Bactrim Unknown Drug Allergy Active clynamyacin (uncoded) Unknown Allergy Active REASON FOR VISIT Patient presents today for a COLON SCREENING MEDICATIONS Medication SIG (Take, Route, Frequency, Duration) [...] 2- 4 times a day 07/23/2024 Active Methenamine Hippurate 1 GM 1 tablet Oral ly Twice a day for 10 day(s) 07/23/2024 Active Omeprazole 40 MG Oral for 90 A ctive SOCIAL HISTORY Tobacco Use: Social History Observation [...] No Points 0 Interpretation Negative VITAL SIGNS BMI 28.07 kg/m2 07/23/2024 Blood pressure systolic 000 mm Hg 07/23/20 24 Blood pressure diastolic 00 mm Hg 024 Height 5 ft 3.5 in in 07/23/2024 Temperature 96.0 degrees Fahrenheit 07/23/20 24 Weight 161 lbs 07/23/2024 Encounters Encounter Location Date Provider Diagnosis [facility] [address] [place] [address] 07/23/2024 Glenroy Velarde Jr Generalized abdominal pain R10.84 ASSESSMENTS Encounter Date Diagnosis Assessment Notes Treatment Notes Treatment Clinical Notes 07/23/2024 Generalized abdominal pain (ICD-10 - R10.84) PLAN OF TREATMENT Medication Medication Name Sig Start Date Stop Date Notes Dicyclomine HCl 10 MG 1 tablet Orally 2-4 times a day 11/2023
== END 2024-07-28 14:32 | disposition home or self-care (01) ==
LOC: HO.HWS 13:09
PROVIDERS: PCP Internal Medicine; Visit Provider Obstetrics & Gynecology
DX: Z01.419 Encounter for gynecological examination (general) (routine) without abnormal findings (principal)
CPT/HCPCS: 99397

== ENCOUNTER → 2024-07-28 13:09 | Outpatient (BNVA) | payer MEDICARE, BC, SELFPAY | PROVIDERS: PCP Internal Medicine; Visit Provider Obstetrics & Gynecology | DX: Z01.419 Encounter for gynecological examination (general) (routine) without abnormal findings (principal) | CPT/HCPCS: 99397 ==

== ENCOUNTER 2024-07-30 14:15 | Outpatient (REF) | payer MEDICARE, BC, SELFPAY ==
--- OUTSIDE RECORDS SUMMARY | 2024-07-31 02:45 | XMS_ITS ---
Author Organization [facility] Address [address] [place] [address] Care Team Providers Care Minilab Operator Name Role Phone Devin Morgan MD Primary Care Provider Glenroy Corbin Jr Unavailable [phone] ALLERGIES Allergen (clinical drug ingredient) Drug/Non Drug Allergy documented on EMR Reaction Allergy Type Onset Date Status Substance with 5-zwiugkp-0-methylglutary l-coenzyme A reductase inhibitor mechanism of action [...] 07/23/2024 Encounters Encounter Location Date Provider Diagnosis [facility] [address] [place] [address] 07/23/2024 Glenroy Velarde Jr Generalized abdominal pain R10.84 ASSESSMENTS Encounter Date Diagnosis Assessment Notes Treatment Notes Treatment Clinical Notes 07/23/2024 Generalized abdominal pain (ICD-10 - R10.84) PLAN OF TREATMENT Medication Medication Name Sig Start Date Stop Date Notes Dicyclomine HCl 10 MG 1 tablet Orally 2-4 times a day 11/2023
--- OUTSIDE RECORDS SUMMARY | 2024-07-31 02:45 | XMS_ITS | Patient Health Record ---
Author Organization [facility] Address [address] [place] [address] Care Team Providers Care Solderer Production Line Name Role Phone Devin Morgan MD Primary Care Provider Glenroy Corbin Jr Unavailable ALLERGIES Allergen (clinical drug ingredient) Drug/Non Drug Allergy documented on EMR Reaction Allergy Type Onset Date Status Substance with 9-pqouyyz-1-methylglutary l-coenzyme A reductase inhibitor mechanism of action [...] 07/23/2024 Encounters Encounter Location Date Provider Diagnosis [facility] [address] [place] [address] 07/23/2024 Glenroy Velarde Jr Generalized abdominal pain R10.84 ASSESSMENTS Encounter Date Diagnosis Assessment Notes Treatment Notes Treatment Clinical Notes 07/23/2024 Generalized abdominal pain (ICD-10 - R10.84) PLAN OF TREATMENT No Information Insurance Providers Payer Name Payer Address Payer Phone Subscriber Number Group Number Insured Name Patient Relationship to Insured Coverage Start Date Coverage End Date MEDICARE OF [place] [address] [place] [address] [phone] [id number] NIXON FAIRBANKS Self - patient is the insured [facility] [address] [place] [address] [id number] NIXON FAIRBANKS Self - patient is the insured MEDICAL (GENERAL) HISTORY Medical History History ICD Code high blood pressure high cholesterol Surgical History Surgery Date(Month/Year) caratoid surgery left side right breast removed knee surgery right
--- OUTSIDE RECORDS SUMMARY | 2024-07-31 02:45 | XMS_ITS ---
Author Organization Devin Morgan MD Address [address] [facility] [address] [place] [phone] Care Team Providers Care Halal Butcher Name Role Phone Devin Morgan Primary Care Provider REASON FOR VISIT ? premedicate Encounters Encounter Location Date Provider Diagnosis Devin Morgan MD [address] [facility] [address] [place] [phone] 07/01/2024 Devin Morgan PLAN OF TREATMENT Next Appt Details Provider Name:Devin wilson, 10/27/2024 01:30:00 PM, [address] [place] [address], [place] [address], [place], [place], [phone], Provider Name:Devin wilson, 04/21/2025 08:30:00 AM, [address] [place] [address], [address], [phone], Provider Name:Devin wilson, 04/27/2025 02:30:00 PM, [address] [place] [address], [address], [phone],
--- OUTSIDE RECORDS SUMMARY | 2024-07-31 02:46 | XMS_ITS ---
Author Organization Devin Morgan MD Address [address] [place], [place] [phone] Care Team Providers Care Manager Client Name Role Phone Devin Morgan Primary Care Provider ALLERGIES Allergen (clinical drug ingredient) Drug/Non Drug Allergy documented on EMR Reaction Allergy Type Onset Date Status Keflex Unknown Drug Allergy Active erythromycin Erythromycin Unknown Drug Allergy A ctive sulfamethoxazole / trimethoprim Bactrim DS Unknown Drug Allergy Active 12 Hour Nasal [place] Unknown Drug Allergy Active clindamycin Clindamycin Unknown Drug Allergy Act tommy atorvastatin Atorvastatin fatigue Drug Allergy A ctive REASON FOR VISIT 4 week, check rash [...] for 7 day(s) 04/30/2023 Not-Taki ng Nystatin 911775 UNIT/GM 1 application Ex ternally Twice a [...] Location Date Provider Diagnosis Devin Morgan MD [address] [place] [address] [place] [phone] 06/17/2024 Devin Morgan Skin yeast infection B37.2 [...] Sig Start Date Stop Date Notes Nystatin 754199 UNIT/GM 1 application Ex ternally Twice a day for 30 days 06/17/2024 Treatment Notes Assessment Notes Skin yeast infection patient verbalized medication and directions for use Essential hypertension is a little high but had good readings at home, will continue curent regiment and will continue to monitor Next Appt Details Provider Name:Devin wilson, 10/27/2024 01:30:00 PM, [address] [place] [address], [address], [phone], Provider Name:Devin wilson, 04/21/2025 08:30:00 AM, [address] [place] [address], [place] [address], [place], [place], [phone], Provider Name:Devin wilson, 04/27/2025 02:30:00 PM, [address] [place] [address], [address], [phone], Progress Notes * Examination Category Sub-Category Detail [...]
--- OUTSIDE RECORDS SUMMARY | 2024-07-31 02:46 | XMS_ITS ---
Author Organization Devin Morgan MD Address [address] [place] [phone] Care Team Providers Care Architectural Manager Name Role Phone Devin Morgan Primary Care Provider ALLERGIES Allergen (clinical drug ingredient) Drug/Non Drug Allergy documented on EMR Reaction Allergy Type Onset Date Status Keflex Unknown Drug Allergy Active erythromycin Erythromycin Unknown Drug Allergy A ctive sulfamethoxazole / trimethoprim Bactrim DS Unknown Drug Allergy Active 12 Hour Nasal [place] Unknown Drug Allergy Active clindamycin Clindamycin Unknown Drug Allergy Act tommy atorvastatin Atorvastatin fatigue Drug Allergy A ctive REASON FOR VISIT HBP running high all weekend MEDICATIONS Medication SIG [...] [address] [place], [place] [phone] 05/19/2024 Devin Morgan Essential hypertension I10 ASSESSMENTS [...] Reason: Provider Name:Devin wilson, 10/27/2024 01:30:00 PM, [address] [place] [address], [phone], Provider Name:Devin wilson, 04/21/2025 08:30:00 AM, [address] [place] [address], [phone], Provider Name:Devin wilson, 04/27/2025 02:30:00 PM, [address] [place] [address], [address], [phone], Progress Notes * Examination Category Sub-Category Detail Notes General Examination GENERAL APPEARANCE: alert, w ell hydrated, in no distress HEAD: normocephalic HEART: regular rate and rhy thm, no murmurs, rubs, gallops LUNGS: no wheezes, rales, r honchi, good air movement, clear to auscultation bilaterally SKIN: good turgor
--- OUTSIDE RECORDS SUMMARY | 2024-07-31 02:46 | XMS_ITS | Patient Health Record ---
Author Organization Devin Morgan MD Address [address] [place], [place] [address] Care Team Providers Care Apparel Machinery Instructor Name Role Phone Devin Morgan Primary Care Provider [phone] ALLERGIES Allergen (clinical drug ingredient) Drug/Non Drug Allergy documented on EMR Reaction Allergy Type Onset Date Status Keflex Unknown Drug Allergy Active erythromycin Erythromycin Unknown Drug Allergy A ctive sulfamethoxazole / trimethoprim Bactrim DS Unknown Drug Allergy Active 12 Hour Nasal [place] Unknown Drug Allergy Active clindamycin Clindamycin Unknown Drug Allergy Act tommy atorvastatin Atorvastatin fatigue Drug Allergy A ctive RESULTS Component Value Reference Range Notes US renal BI Reviewed date:08/22/2023 04:32:00 PM Interpretation: Performing Lab: Notes/Report: [address] [address] Ultrasound Report Signed Patient: Malena Lenz MR#: [id number] : 1935 Acct:[id number] Age/Sex: 88 / F ADM Date: 08/21/23 Loc: HO.US Attending Dr: Milo Callahan MD Ordering Physician: Milo Callahan MD Date of Service: 08/21/23 Procedure(s): US renal BI Accession Number(s): [id number] cc: Milo Callahan MD; Devin Morgan MD [...] in OV> 08/22/23 0614 DD/ 1601 TD/TT: Resource Economist: XR DEXA axial skeleton Reviewed date:08/25/2023 05:25:44 PM Interpretation: Performing Lab: Notes/Report: [facility] [address] [place] [address] Mammography Report Signed Patient: Malena Lenz MR#: [id number] : 1935 Acct:[id number] Age/Sex: 88 / F ADM Date: 08/24/23 Loc: HO.MAMMO Attending Dr: Alton Caba MD Ordering Physician: Alton Caba MD Results: Date of Service: 08/24/23 Follow Up: Procedure(s): XR DEXA axial skeleton Accession Number(s): [id number] cc: Devin Morgan MD; Alton Caba MD EXAMINATION: BONE DENSITOMETRY CLINICAL INDICATION: Asymptomatic menopausal state. COMPARISON: This is the patient's baseline examination. TECHNIQUE: Using a [employer] DXA System (software version: 13.1) manufactured by [employer], dual-energy x-ray absorptiometry was performed of the [...] in OV> 08/24/23 1726 DD/ 1410 TD/TT: Resource Economist: TOM Occult Blood, Stool, Guaiac Reviewed date:04/24/2024 [...] for 7 day(s) 04/30/2023 Not-Taki ng Nystatin 840372 UNIT/GM 1 application Ex ternally Twice a [...] Essential hypertension (I10) Active confirmed Essential hypertension (18157759) Problem History of colon cancer (Z85.038) Active confirmed History of malignant neoplasm of colon (355213818) Problem History of uterine cancer (Z85.42) Active confirmed 602731428 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 [id number] Problem 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) Active confirmed 986575782 VITAL SIGNS Blood pressure diastolic 90 mm Hg 06/17/2024 Height 63.5 in 06/17/2024 Blood pressure systolic 148 mm Hg 06/17/2024 Weight 168 lbs 06/17/2024 BMI 29.29 kg/m2 06/17/2024 Encounters Encounter Location Date Provider Diagnosis Devin Morgan MD [address] [place] [id number] 04/24/2024 Devin Morgan History of colon cancer Z85.038 ; Essential hypertension I10 ; Colon cancer screening Z12.11 and Depression screening Z13.31 Devin Morgan MD [address] [place] [id number] 04/18/2024 Devin Morgan Essential hypertension I10 Devin Morgan MD [address] [place] [id number] 08/30/2023 Devin Morgan History of colon cancer Z85.038 ; Essential hypertension I10 and Dizzinesses R42 Devin Morgan MD [address] [place] [id number] 12/28/2023 Devin Morgan Essential hypertension I10 and Unexplained night sweats R61 Devin Morgan MD [address] [place] [id number] 06/17/2024 Devin Morgan Skin yeast infection B37.2 and Essential hypertension I10 Devin Morgan MD [address] [place] [id number] 05/19/2024 Devin Morgan Essential hypertension I10 Devin Morgan MD [address] [place] [address] [id number] 08/24/2023 Devin Morgan MD [address] [place] [id number] 07/01/2024 Devin Morgan ASSESSMENTS Encounter Date Diagnosis [...] - Z85.038) had ct chest abdomen at [facility]. NEED results need notes from shadi at [facility]/ sent request for records for Dr. Vargas/ [...] Provider Name:Devinrobby Malone ier, 10/27/2024 01:30:00 PM, [address] [place] [address], [address], [place], [place], [phone], Provider Name:Devin Malone ier, 04/21/2025 08:30:00 AM, [address] [place] [address], [address], [place], [place], [phone], Provider Name:Devinrobby Malone ier, 04/27/2025 02:30:00 PM, [address] [place] [address], [address], [place], [place], [phone], Insurance Providers Payer Name Payer Address Payer Phone Subscriber Number Group Number Insured Name Patient Relationship to Insured Coverage Start Date Coverage End Date MEDICARE NHIC ALECIA [address] [place] [address] [id number] Malnea Lenz Self - patient is the insured [employer] [address] [place], [place] [phone] [id number] Malena Lenz Self - patient is the insured
== END 2024-07-30 14:16 | disposition home or self-care (01) ==
LOC: HO.MAMMO 14:15
PROVIDERS: PCP Internal Medicine; Visit Provider Internal Medicine
DX: Z12.31 Encounter for screening mammogram for malignant neoplasm of breast (principal)
CPT/HCPCS: 77063; 77067

== ENCOUNTER → 2024-07-30 14:30 | Outpatient (BNV) | payer MEDICARE, BC, SELFPAY | PROVIDERS: PCP Internal Medicine; Visit Provider Internal Medicine | DX: Z12.31 Encounter for screening mammogram for malignant neoplasm of breast (principal) | CPT/HCPCS: 77063; 77067 ==

== ENCOUNTER 2024-09-01 13:00 | Outpatient (AMB) | payer MEDICARE, BC, SELFPAY ==
--- NOTE | 2024-08-31 17:56 | A.OFFVIS_ITS ---
Intake Visit Reasons: 4m follow up Intake Note: Patient is present for 4 months follow up Urology Med: Gemtesa, Estradiol Antibiotic Allergy: Sulfa, Cephalexin, Clindamycin, Erythromycin Blood Thinner: None Patient Symptoms:bladder spasms Meat Cutting Teacher Required: No Accompanied by: Self / Same As Patient Allergies cephalexin [From Keflex] Allergy (Verified 09/01/24 13:13) Unknown clindamycin Allergy (Verified 09/01/24 13:13) Unknown erythromycin base Allergy (Verified 09/01/24 13:13) Unknown mirabegron Allergy (Verified 09/01/24 13:13) Unknown nitrofurantoin [From Macrodantin] Allergy (Verified 09/01/24 13:13) Unknown Sulfa (Sulfonamide Antibiotics) Allergy (Verified 09/01/24 13:13) Unknown Orfmfmt-JQK-FsM Reductase Inhibitor Adverse Reaction (Verified 09/01/24 13:13) Fatigued HPI Comments Details: 09/01/24--h/o recurrent UTI's, and Gemtesa overactive bladder symptoms. She states she has having some increased bladder spasms she is only able to provide minimal urine which is not enough to send for culture. I will empirically place her on Macrobid 100 mg twice a day for 5 days. Review of chart: 04/30/24--Malena is here for FU. She states the gemtesa is working well. UA - nitrite positive. urine c/s. Cipro 500mg bid for 7 dys. Renal ultrasound 09/08/2023 simple cyst otherwise negative for kidney stones or hydronephrosis. Continue Hiprex and cranberry. The patient has multiple allergies to antibiotics will not trial a suppressive antibiotic. 01/28/2024--Malena is an 88-year-old female who I have been following due to recurrent urinary tract infections. The patient states that she has had some irritation along her right close groin. She states at the areas painful she has been using Desitin which helps She states that she had problems with yeast infection in the past. On examination erythematous changes on the skin noted in the crease along the groin consistent with skin candidiasis she is also complaining of using about 6 pads a day she states she gets a strong urge and before getting to the bathroom she will leak. Urinalysis leukocytes negative b lood negative. I will prescribe nystatin powder and Gemtesa 75 mg daily, continue Hiprex b.i.d., vitamin-C, cranberry extract; follow-up in 3 months. 10/26/23--Malena is an 88-year-old female who presents today FU for recurrent UTI's. She was last seen on 10/05/2023, cystoscopy was done at that time. 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 A repeat urine culture was sent and she was empirically treated with Levaquin. Urine culture did come back-- > 100,000 cfu/mL Citrobacter freundii, sensitive to Levaquin. She has brought in a urine specimen that was voided this morning urinalysis resulted negative for UTI. She states that her urine stream has been good, she denies dysuria she still has some urinary frequency. Plan is to start methenamine 500 mg twice a day along with vitamin-C 500 mg daily and cranberry tablets 450 mg twice a day. We will re-evaluate urine in 3 months. 10/05/23 - For cysto today---urine c/s 08/29/23 klebsiella S-to levaquin a quinolone, she was treated with Cipro a quinolone. The patient states that after 5 days of the cipro she started to have a decrease in her irritative voiding but after completing the Cipro the symptoms returned. 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 Persistent Bacteuria, the patient has multiple abx allergies, she has irritative voiding symptoms will trial a longer course of quinolone therapy. repeat urine c/s sent. fu 3 1/2 weeks to recheck urine and pt's symptoms. 08/29/23-- The patient is here for scheduled office cystoscopy. (office cysto canceled as urinalysis is nitrite positive) The patient was initially evaluated on 07/20/2023? a new patient for recurrent UTIs and was sent for renal ultrasound. Patient has a past medical history significant for uterine cancer. She has had in total hysterectomy followed by radiation. The patient complains of intractible urinary urgency/frequency and states she has tried multiple meds in the past. I have discussed sacral neuromodulation as an alternative treatment option regarding this problem. I have reviewed renal ultrasound--kidneys within normal notes Pelvic examination no significant prolapse noted. Catheterized urine 60 mL. No induration or pain on urethral palpation. Urine culture results from 04/26/2023 revealed serratia >>> 100,000 colonies noted. [facility] Medical History Depression screen Colon cancer screening Unilateral primary osteoarthritis, unspecified knee Acute cystitis without hematuria H/O malignant neoplasm of parotid gland H/O cancer of uterus Candidiasis, unspecified Essential (primary) hypertension Surgical History History of surgery Hx of hysterectomy Family History Father No problems noted. Mother No problems noted. Social History Household Members: None Household Members Other:: [facility] Housing: Assisted Living Facility Alcohol intake: current Alcohol intake frequency: a few times a week Alcohol type: wine Patient Tobacco Use Status: Never used Tobacco Current occupational status: retired Review of Systems Const All systems reviewed & are unremarkable except as noted in HPI and below Reports no additional complaints Eyes Reports no additional complaints ENT Reports no additional complaints Card Reports no additional complaints Resp Reports no additional complaints GI Reports no additional complaints Reports as per HPI Musc Reports no additional complaints Skin/Breast Reports system reviewed and no additional complaints, except as documented Neuro Reports no additional complaints Psych Reports no additional complaints Endo Reports no additional complaints [place]/Lymph Reports no additional complaints Aller/Immun Reports no additional complaints Results AMB Urinalysis, Automated UA Leukoctes 500 Dirk/uL Last Edit by Natalee Perez CMA on 09/01/24 13:27 UA Nitrite Positive Last Edit by Natalee Perez CMA on 09/01/24 13:27 UA Urobilinogen 0.2 mg/dL Last Edit by Natalee Perez CMA on 09/01/24 13:2 7 UA Protein 30 mg/dL Last Edit by Natalee Perez CMA on 09/01/24 13:27 UA pH 6.5 Last Edit by Natalee Perez CMA on 09/01/24 13:27 UA Blood 25 Josse/uL Last Edit by Natalee Perez, HARMONY on 09/01/24 13: UA Specific [address] 1.015 Last Edit by Natalee Perez CMA on 09/01/24 13: UA Ketone Negative Last Edit by Natalee Perez CMA on 09/01/24 13:27 UA Bilirubin 0 mg/dL Last Edit by Natalee Perez, HARMONY on 09/01/24 13: UA Glucose 0 mg/dL Last Edit by Natalee Perez CMA on 09/01/24 13: Results Reviewed Results Reviewed: Laboratory Last Values Urine pH (Auto) 6.5 09/01/24 13: Specific [place] (Auto) 1.015 09/01/24 13: Urine Protein (Auto) 30 mg/dL 09/01/24 13: Glucose (UA)(Auto) 0 mg/dL 09/01/24 13: Urine Ketones (Auto) Negative 09/01/24 13: Urine Blood (Auto) 25 Josse/uL 09/01/24 13: Urine Nitrite (Auto) Positive 09/01/24 13:25 Urine Bilirubin (Auto) 0 mg/dL 09/01/24 13:25 Urine Urobilinogen (Auto) 0.2 mg/dL 09/01/24 13:25 Leukocyte Esterase (Auto) 500 Dirk/uL 09/01/24 13:25 Collected: 10/05/23-1321 Status: COMP Req#: [id number] Received: 10/05/23 Source: [facility] Sp Desc: Urine davis Subm Dr: Milo Callahan MD Ordered: Urine Culture Procedure Result Verified Urine Culture Final 10/08/23 Organism 1 Citrobacter freundii Quant > 100,000 cfu/mL C freundii M.I.C. RX --------- --- Ceftriaxone 0.5 S Gentamicin <=1 S Levofloxacin 0.25 S Nitrofurantoin <=16 S Trimethoprim/Sulfamethoxazole <=20 S Date of Service: 08/21/23 EXAMINATION: US RETROPERITONEAL LIMITED (RENAL ONLY) CLINICAL INFORMATION: Urinary tract infection, site not specified. COMPARISON: CT abdomen and pelvis 01/24/2023. Ultrasound kidneys and bladder 06/01/2015. TECHNIQUE: Real-time imaging of the kidneys. Limited visualization due to bowel gas. FINDINGS: RIGHT KIDNEY: 10.8 x 4.8 x 5.7 cm (SAG x AP x TRV). No hydronephrosis. No renal calculi. Renal cortical thickness is normal. Limited visualization. LEFT KIDNEY: 10.6 x 5.4 x 5.0 cm (SAG x AP x TRV). No hydronephrosis. No renal calculi. Renal cortical thickness is normal. Limited visualization. Medial 0.6 cm cyst with benign features. There is no indication for follow-up imaging. IMPRESSION: There is a 0.6 cm left renal cyst with benign features. There is no indication for follow-up imaging. Date of Service: 01/24/23 EXAMINATION: CT abdomen pelvis w IV con CLINICAL INFORMATION: Reason for Exam bilateral lower abdominal pain, diarrhea COMPARISON: Prior CT scan from 2012 FINDINGS: LOWER THORAX: There is scar, subsegmental atelectasis at left lung base. Included lung bases otherwise are clear. HEPATOBILIARY: There is tiny 4 mm hypodensity in the right lobe of the liver, too small to characterize, commonly found to be evolving cysts. No suspicious solid liver mass. GALLBLADDER: Gallbladder unremarkable. SPLEEN: Spleen is normal in size. PANCREAS: No focal mass or ductal dilatation. STOMACH AND GASTROINTESTINAL TRACT: Stomach is grossly unremarkable. There are suture line in the colon from prior hemicolectomy. There is fat stranding surrounding loops of small bowel in the left lower quadrant adjacent to the ileocolic anastomosis concerning for ileitis which could be infection or inflammatory. There is no evidence of obstruction or dilatation of the small bowel loops. Please refer to [place] image. There is no abscess or loculated the fluid collection. ADRENALS: No adrenal nodules. KIDNEYS/URETERS: No hydronephrosis, stones or solid mass lesions. URINARY BLADDER: Partially decompressed. PELVIC VISCERA: Unremarkable PERITONEUM: There is no free air or fluid. LYMPH NODES: No lymphadenopathy. VASCULAR:Abdominal aorta normal in size, no aneurysm found. BONES, ABDOMINAL WALL AND SOFT TISSUES: Spondylosis of dorsal spine. No fractures. No destructive bone lesion. IMPRESSION: * There is fat stranding surrounding loops of small bowel in the left lower quadrant adjacent to the ileocolic anastomosis concerning for ileitis which could be infection or inflammatory. There is no evidence of obstruction or abscess. Clinical correlation and follow-up recommended. * Postsurgical changes from prior hemicolectomy. Assessment & Plan Assessment & Plan (1) Urinary urgency: Code(s): R39.15 - Urgency of urination Category: Medical (2) Recurrent UTI: Code(s): N39.0 - Urinary tract infection, site not specified Category: Medical (3) Cystitis: Code(s): N30.90 - Cystitis, unspecified without hematuria Category: Medical (4) OAB (overactive bladder): Code(s): N32.81 - Overactive bladder Category: Medical Plan Macrobid 100 mg twice a day, continue Gemtesa. Follow-up in 6 mon Orders: Orders AMB Urinalysis Automated Today Z13.9 - Encounter for screening, unspecified Medications: New nitrofurantoin monohyd/m-cryst 100 mg (Macrobid) must administer with a meal/food 100 mg PO BID 10 caps 0RF Refilled vibegron (Gemtesa) 75 mg PO DAILY 30 tabs 9RF Patient Instructions: The patient had an opportunity to ask questions regarding treatment plan. The patient expressed understanding and agreement with the above treatment plan. The patient is aware they should contact our office by phone for worsening of their current condition or the appearance of new symptoms. Compliance is encouraged with any medications and followup testing that is ordered. It is a privilege to be allowed the opportunity to participate in the urologic care of your patient. If you have any questions or concerns regarding treatment for the above conditions please do not hesitate to contact me. The office telephone contact is [phone]. This note is constructed in part using voice recognition software. While every effort has been made to ensure accuracy minibus driver errors may have been included. Yours sincerely, Milo Callahan MD Coding Level of Care Code Est Pt Level 4 (67378) Diagnoses Urinary urgency R39.15 Recurrent UTI N39.0 Cystitis N30.90 OAB (overactive bladder) N32.81
--- NOTE | 2024-09-01 13:24 | MHC.OFFVIS ---
Intake Visit Reasons: 4m follow up Intake Note: Patient is present for 4 month follow up Urology Med: Estradiol, Gemtesa Antibiotic Allergy: Cephalexin, Clindamacin, Erythromycin, Sulfa Blood Thinner: None Patient Symptoms: Numerical Analysis Group Manager Required: No Allergies cephalexin [From Keflex] Allergy (Verified 09/01/24 13:13) Unknown clindamycin Allergy (Verified 09/01/24 13:13) Unknown erythromycin base Allergy (Verified 09/01/24 13:13) Unknown mirabegron Allergy (Verified 09/01/24 13:13) Unknown nitrofurantoin [From Macrodantin] Allergy (Verified 09/01/24 13:13) Unknown Sulfa (Sulfonamide Antibiotics) Allergy (Verified 09/01/24 13:13) Unknown Yesbsvz-GTP-HxI Reductase Inhibitor Adverse Reaction (Verified 09/01/24 13:13) Fatigued [facility] Medical History Depression screen Colon cancer screening Unilateral primary osteoarthritis, unspecified knee Acute cystitis without hematuria H/O malignant neoplasm of parotid gland H/O cancer of uterus Candidiasis, unspecified Essential (primary) hypertension Surgical History History of surgery Hx of hysterectomy Family History Father No problems noted. Mother No problems noted. Social History Household Members: None Household Members Other:: [facility] Housing: Assisted Living Facility Alcohol intake: current Alcohol intake frequency: a few times a week Alcohol type: wine Patient Tobacco Use Status: Never used Tobacco Current occupational status: retired Results AMB Urinalysis, Automated UA Leukoctes 500 Dirk/uL Last Edit by Natalee Perez CMA on 09/01/24 13:27 UA Nitrite Positive Last Edit by Natalee Perez CMA on 09/01/24 13:27 UA Urobilinogen 0.2 mg/dL Last Edit by Natalee Perez CMA on 09/01/24 13:27 UA Protein 30 mg/dL Last Edit by Natalee Perez CMA on 09/01/24 13:27 UA pH 6.5 Last Edit by Natalee Perez, HARMONY on 09/01/24 13:27 UA Blood 25 Josse/uL Last Edit by Natalee Perez, HARMONY on 09/01/24 13:27 UA Specific [place] 1.015 Last Edit by Natalee Perez, HARMONY on 09/01/24 13:27 UA Ketone Negative Last Edit by Natalee Perez, HARMONY on 09/01/24 13:27 UA Bilirubin 0 mg/dL Last Edit by Natalee Perez, HARMONY on 09/01/24 13: UA Glucose 0 mg/dL Last Edit by Natalee Perez, HARMONY on 09/01/24 13: Results Reviewed Results Reviewed: Laboratory Last Values Urine pH (Auto) 6.5 09/01/24 13:25 Specific [place] (Auto) 1.015 09/01/24 13:25 Urine Protein (Auto) 30 mg/dL 09/01/24 13:25 Glucose (UA)(Auto) 0 mg/dL 09/01/24 13:25 Urine Ketones (Auto) Negative 09/01/24 13:25 Urine Blood (Auto) 25 Josse/uL 09/01/24 13:25 Urine Nitrite (Auto) Positive 09/01/24 13:25 Urine Bilirubin (Auto) 0 mg/dL 09/01/24 13:25 Urine Urobilinogen (Auto) 0.2 mg/dL 09/01/24 13:25 Leukocyte Esterase (Auto) 500 Dirk/uL 09/01/24 13:25 Assessment & Plan Assessment & Plan Orders: Orders AMB Urinalysis Automated Today Z13.9 - Encounter for screening, unspecified Coding
--- OUTSIDE RECORDS SUMMARY | 2024-09-01 15:24 | XMS_ITS ---
Author Organization Devin Morgan MD Address [address] [place], [place] [id number] Care Team Providers Care Venue Manager Name Role Phone Devin Morgan Primary Care Provider ALLERGIES Allergen (clinical drug ingredient) Drug/Non Drug Allergy documented on EMR Reaction Allergy Type Onset Date Status Keflex Unknown Drug Allergy Active erythromycin Erythromycin Unknown Drug Allergy A ctive sulfamethoxazole / trimethoprim Bactrim DS Unknown Drug Allergy Active 12 Hour Nasal [place] Unknown Drug Allergy Active clindamycin Clindamycin Unknown [...] for 7 day(s) 04/30/2023 Not-Taki ng Nystatin 055170 UNIT/GM 1 application Ex ternally Twice a [...] Location Date Provider Diagnosis Devin Morgan MD [address] [place] [address] [place] [phone] 06/17/2024 Devin Morgan Skin yeast infection B37.2 [...] Sig Start Date Stop Date Notes Nystatin 463081 UNIT/GM 1 application Ex ternally Twice a day for 30 days 06/17/2024 Treatment Notes Assessment Notes Skin yeast infection patient verbalized medication and directions for use Essential hypertension is a little high but had good readings at home, will continue curent regiment and will continue to monitor Next Appt Details Provider Name:Devin wilson, 10/27/2024 01:30:00 PM, [address] [place] [address], [address], [phone], Provider Name:Devin wilson, 04/21/2025 08:30:00 AM, [address] [place] [address], [place] [address], [place], [place], [phone], Provider Name:Devin wilson, 04/27/2025 02:30:00 PM, [address] [place] [address], [address], [phone], Progress Notes * Examination Category Sub-Category Detail [...]
--- OUTSIDE RECORDS SUMMARY | 2024-09-01 15:24 | XMS_ITS ---
Author Organization Devin Morgan MD Address [address] [facility] [address] [place] [phone] Care Team Providers Care Chemical Pathologist Name Role Phone Devin Morgan Primary Care Provider REASON FOR VISIT ? premedicate Encounters Encounter Location Date Provider Diagnosis Devin Morgan MD 10 [facility] [address] [place] [phone] 07/01/2024 Devin Morgan PLAN OF TREATMENT Next Appt Details Provider Name:Devin wilson, 10/27/2024 01:30:00 PM, [address] [place] [address], [place] [address], [place], [place], [phone], Provider Name:Devin wilson, 04/21/2025 08:30:00 AM, [address] [place] [address], [address], [phone], Provider Name:Devin wilson, 04/27/2025 02:30:00 PM, [address] [place] [address], [address], [phone],
--- OUTSIDE RECORDS SUMMARY | 2024-09-01 15:24 | XMS_ITS ---
Author Organization [facility] Address [address] [place] [address] Care Team Providers Care Bobbin Winder Tender Name Role Phone Devin Morgan MD Primary Care Provider Glenroy Corbin Jr Unavailable ALLERGIES Allergen (clinical drug ingredient) Drug/Non Drug Allergy documented on EMR Reaction Allergy Type Onset Date Status Substance with 1-gxxionw-0-methylglutary l-coenzyme A reductase inhibitor mechanism of action [...] ast year? No Points 0 Interpretation Negative PROBLEMS Problem Type ICD Code Onset Dates Problem Status W/U Status Risk SNOMED Code Notes Problem Generalized abdominal pain (R10.84) Active confirmed 631896173 Problem Gastroesophageal reflux disease, unspecified whether esophagitis present (K21.9) Active confirmed 759778949 Problem Malignant neoplasm of colon, unspecified part of colon (C18.9) Active confirmed 850172880 VITAL SIGNS BMI 28.07 kg/m2 07/23/2024 Blood pressure systolic 000 mm Hg 07/23/20 24 Blood pressure diastolic 00 mm Hg 024 Height 5 ft 3.5 in in 07/23/2024 Temperature 96.0 degrees Fahrenheit 07/23/20 24 Weight 161 lbs 07/23/2024 Encounters Encounter Location Date Provider Diagnosis [facility] [address] [place] [phone] 07/23/2024 Glenroy Velarde Jr Generalized abdominal pain R10.84 ; Gastroesophageal reflux disease, unspecified whether esophagitis present K21.9 and Malignant neoplasm of colon, unspecified part of colon C18.9 ASSESSMENTS Encounter Date Diagnosis Assessment Notes Treatment Notes Treatment Clinical Notes 07/23/2024 Generalized abdomina l pain (ICD-10 - R10.84) Irritable bowel syndrome material was printed 07/23/2024 Gastroesophageal ref lux disease, unspecified whether esophagitis present (ICD-10 - K21.9) 07/23/2024 Malignant neoplasm o f colon, unspecified part of colon (ICD-10 - C18.9) PLAN OF TREATMENT Medication Medication Name Sig Start Date Stop Date Notes Dicyclomine HCl 10 MG 1 tablet Orally 2-4 times a day 11/2023 Treatment Notes Assessment Notes Generalized abdominal pain Irritable bow el syndrome material was printed Next Appt Details Follow Up: 6 Months, Reason: Progress Notes * Examination Category Sub-Category Detail Notes General Examination GENERAL APPEARANCE: in no ac [place] distress HEAD: normocephalic EYES: sclera non-icteric NECK/THYROID: no lymphadenopathy HEART: S1, S2 normal, no mu rmurs CHEST: normal shape and exp ansion LUNGS: clear to auscultatio n bilaterally ABDOMEN: soft, nontender, non distended, bowel sounds present, no organomegaly SKIN: anicteric EXTREMITIES: no clubbing, cyanosi s, or edema PSYCH: cognitive function i ntact ORAL CAVITY: mucosa moist
--- OUTSIDE RECORDS SUMMARY | 2024-09-01 15:24 | XMS_ITS | Patient Health Record ---
Author Organization [facility] Address [address] [place] [address] Care Team Providers Care Exterior Designer Name Role Phone Devin Morgan MD Primary Care Provider Glenroy Corbin Jr Unavailable ALLERGIES Allergen (clinical drug ingredient) Drug/Non Drug Allergy documented on EMR Reaction Allergy Type Onset Date Status Substance with 9-prcxaxh-5-methylglutary l-coenzyme A reductase inhibitor mechanism of action [...] Problem Generalized abdominal pain (R10.84) Active confirmed 155932077 Problem Gastroesophageal reflux disease, unspecified whether esophagitis present (K21.9) Active confirmed 030212305 Problem Malignant neoplasm of colon, unspecified part of colon (C18.9) Active confirmed 592070911 VITAL SIGNS Temperature 96.0 degrees Fahrenheit 07/23/2024 Blood pressure diastolic 00 mm Hg 07/23/2024 Height 5 ft 3.5 in in 07/23/2024 Blood pressure systolic 000 mm Hg 07/23/2024 Weight 161 lbs 07/23/2024 BMI 28.07 kg/m2 07/23/2024 Encounters Encounter Location Date Provider Diagnosis [facility] [address] [place] [address] 07/23/2024 Glenroy Velarde Jr Generalized abdominal pain [...] colon (ICD-10 - C18.9) PLAN OF TREATMENT No Information Insurance Providers Payer Name Payer Address Payer Phone Subscriber Number Group Number Insured Name Patient Relationship to Insured Coverage Start Date Coverage End Date MEDICARE OF [place] [address] [place] [address] [id number] NIXON FAIRBANKS Self - patient is the insured [facility] [address] [place] [address] [id number] NIXON FAIRBANKS Self - patient is the insured MEDICAL (GENERAL) HISTORY Medical History History ICD Code Hypertension Hyperlipidemia Colon cancer status post resection Gastroesophageal reflux disease Surgical History Surgery Date(Month/Year) Left carotid tumor, surgery and radiatio n therapy right breast removed knee surgery right Colon resection
--- OUTSIDE RECORDS SUMMARY | 2024-09-01 15:25 | XMS_ITS | Patient Health Record ---
Author Organization Devin Morgan MD Address [address] [place], [place] [id number] Care Team Providers Care Vehicle Body Maker Name Role Phone Devin Morgan Primary Care Provider ALLERGIES Allergen (clinical drug ingredient) Drug/Non Drug Allergy documented on EMR Reaction Allergy Type Onset Date Status Keflex Unknown Drug Allergy Active erythromycin Erythromycin Unknown Drug Allergy A ctive sulfamethoxazole / trimethoprim Bactrim DS Unknown Drug Allergy Active 12 Hour Nasal [place] Unknown Drug Allergy Active clindamycin Clindamycin Unknown Drug Allergy Act tommy atorvastatin Atorvastatin fatigue Drug Allergy A ctive RESULTS Component Value Reference Range Notes Occult Blood, Stool, Guaiac Reviewed date:04/24/2024 02:26:11 PM Interpretation:Negative Performing Lab: Notes/Report: Negative Occult Blood, Stool, Guaiac Neg MM tomosynthesis screening L T Reviewed date:08/08/2024 04:39:06 PM Interpretation: Performing Lab: Notes/Report: [facility] [address] [place] [address] Mammography Report Signed with Espinoza Patient: Malena Lenz MR#: [id number] : 1935 Acct:[id number] Age/Sex: 89 / F ADM Date: 07/30/24 Loc: [facility] Attending Dr: Devin Morgan MD Ordering Physician: Devin Morgan MD Results: 2Be nign Findings Date of Service: 07/30/24 Follow Up: 1 Year From Orig inal Mammogram Procedure(s): MM tomosynthesis screening LT Accession Number(s): [id number] cc: Devin Morgan MD ADDENDUM ADDENDUM #1 ADDENDUM: EXAMINATION: MM SCREENING DIGITAL BREAST TOMOSYNTHESIS, LEFT COMPARISON: Mammography: This study is compared with prior exams OVERALL ASSESSMENT: BI-RADS 2 - Benign Findings RECOMMENDATION: 1 year F/U Electronically signed by: Christy Patterson DO 08/08/2024 09:46 AM EST RP Addendum Dictated By: Christy Patterson DO Addendum Signed By: <Electronically signed by Christy Patterson DO in OV> 08/08/24 0946 Addendum Cosigned By: DD/ /13/1430 TD/TT: 07/30/2407/13/1453 EXAMINATION: MM SCREENING DIGITAL BREAST TOMOSYNTHESIS, BILATERAL CLINICAL INFORMATION: Screening. Asymptomatic. Right mastectomy. COMPARISON: Mammography: This study is compared with prior exams dating back to TECHNIQUE: Digital breast tomosynthesis is performed in both the craniocaudal and mediolateral oblique views along with computer-aided detection (CAD). Synthesized 2D images are generated from the tomosynthesis. FINDINGS: There are scattered areas of fibroglandular density (ACR BI-RADS breast composition Category b). Postsurgical changes. Marker clip from previous needle core biopsy. There are no significant masses, abnormal calcifications, or other abnormalities. MM/MM tomosynthesis screening LT IMPRESSION: No mammographic evidence of malignancy. ASSESSMENT: BI-RADS BI-RADS 2 - Benign Findings RECOMMENDATION: Routine annual mammography screening. 1 year F/U This examination should not preclude the clinical evaluation of a suspicious palpable abnormality. This patient's information was entered into a reminder system with a target due date for their next mammogram. Electronically signed by: Christy Patterson DO 08/06/2024 10:27 AM EST RP Dictated By: Christy Patterson DO Signed By: <Electronically signed by Christy Patterson DO in OV> 08/06/24 1027 DD/ 29 TD/TT: 07/30/241452 Plastics Worker: REASON FOR REFERRAL Reason HISTORY OF COLON [...] HER A MESSAGE TODAY TO CALL [facility], Coby Wilhelm 05/02/2024 09:37:24 AM EDT > MALENA CALLED [facility] AND HER APPT IS Jul AT 11:20AM, Coby Wilhelm 08/08/2024 11:35:21 AM EST > PER YOON PATIENT KEPT APPT , NOTE WILL BE FAXED WHEN LOCKEDChoco Patti A 08/25/2024 01:52:02 PM >OFFICE NOTE RECDChoco Patti A 08/25/2024 01:52:05 PM > Referral Priority Routine Referral Appointment Date 07/23/2024 [...] for 7 day(s) 04/30/2023 Not-Taki ng Nystatin 675343 UNIT/GM 1 application Ex ternally Twice a [...] Essential hypertension (I10) Active confirmed Essential hypertension (68120430) Problem History of colon cancer (Z85.038) Active confirmed History of malignant neoplasm of colon (883079039) Problem History of uterine cancer (Z85.42) Active confirmed 660935858 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 [id number] Problem 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) Active confirmed 909638955 VITAL SIGNS Blood pressure diastolic 90 mm Hg 06/17/2024 Height 63.5 in 06/17/2024 Blood pressure systolic 148 mm Hg 06/17/2024 Weight 168 lbs 06/17/2024 BMI 29.29 kg/m2 06/17/2024 Encounters Encounter Location Date Provider Diagnosis Devin Morgan MD [address] [place] [id number] 04/24/2024 Devin Morgan History of colon cancer Z85.038 ; Essential hypertension I10 ; Colon cancer screening Z12.11 and Depression screening Z13.31 Devin Morgan MD [address] [place] [id number] 04/18/2024 Devin Morgan Essential hypertension I10 Devin Morgan MD [address] [place] [id number] 12/28/2023 Devin Morgan Essential hypertension I10 and Unexplained night sweats R61 Devin Morgan MD [address] [place] [address] Drive [address] [place] [id number] 06/17/2024 Devin Morgan Skin yeast infection B37.2 and Essential hypertension I10 Devin Morgan MD [address] [place] [id number] 05/19/2024 Devin Morgan Essential hypertension I10 Devin Morgan MD [address] [place] [address] [address] [place] [id number] 07/01/2024 Devin Morgan ASSESSMENTS Encounter Date Diagnosis [...] FAXED 04/18/2024 Essential hypertension (ICD-10 - I10) 12/28/2023 Essential hypertension (ICD-10 - I10) stable, [...] cancer screening (ICD-10 - Z12.11) guaiac negative 04/24/2024 Depression screening (ICD-10 - Z13.31) negative screen PLAN OF TREATMENT Pending Test Test Name Order Date XR CHEST 2 VIEW PA & LAT 04/30/2023 Next Appt Details Provider Name:Devin wilson, 10/27/2024 01:30:00 PM, [address] [place] [address], [address], [phone], Provider Name:Devin wilson, 04/21/2025 08:30:00 AM, [address] [place] [address], [address], [phone], Provider Name:Devin juárezr, 04/27/2025 02:30:00 PM, [address], [address], [place], [place], [phone], Insurance Providers Payer Name Payer Address Payer Phone Subscriber Number Group Number Insured Name Patient Relationship to Insured Coverage Start Date Coverage End Date MED[employer] [address] [place] [address] [id number] Malena Lenz Self - patient is the insured [facility] [address] [place], [place] [phone] [id number] Malena Lenz Self - patient is the insured
--- OUTSIDE RECORDS SUMMARY | 2024-09-01 15:25 | XMS_ITS ---
Author Organization Devin Morgan MD Address [address] [place] [phone] Care Team Providers Care Child Welfare Manager Name Role Phone Devin Morgan Primary Care Provider ALLERGIES Allergen (clinical drug ingredient) Drug/Non Drug Allergy documented on EMR Reaction Allergy Type Onset Date Status Keflex Unknown Drug Allergy Active erythromycin Erythromycin Unknown Drug Allergy A ctive sulfamethoxazole / trimethoprim Bactrim DS Unknown Drug Allergy Active 12 Hour Nasal [place] Unknown Drug Allergy Active clindamycin Clindamycin Unknown [...] Morgan MD [address] [place], [place] [phone] 05/19/2024 Devin Morgan Essential hypertension I10 ASSESSMENTS [...] Reason: Provider Name:Devin wilson, 10/27/2024 01:30:00 PM, [address] [place] [address], [phone], Provider Name:Devin wilson, 04/21/2025 08:30:00 AM, [address] [place] [address], [phone], Provider Name:Devin wilson, 04/27/2025 02:30:00 PM, [address] [place] [address], [address], [phone], Progress Notes * Examination Category Sub-Category Detail Notes General Examination GENERAL APPEARANCE: alert, w ell hydrated, in no distress HEAD: normocephalic HEART: regular rate and rhy thm, no murmurs, rubs, gallops LUNGS: no wheezes, rales, r honchi, good air movement, clear to auscultation bilaterally SKIN: good turgor
== END 2024-09-01 13:54 | disposition home or self-care (01) ==
PROVIDERS: Visit Provider Urology
DX: R39.15 Urgency of urination (principal); N39.0 Urinary tract infection, site not specified; N30.90 Cystitis, unspecified without hematuria; N32.81 Overactive bladder; Z13.9 Encounter for screening, unspecified
CPT/HCPCS: 99214

== ENCOUNTER → 2024-09-01 13:00 | Outpatient (BNVA) | payer MEDICARE, BC, SELFPAY | PROVIDERS: Visit Provider Urology | DX: R39.15 Urgency of urination (principal); N39.0 Urinary tract infection, site not specified; N30.90 Cystitis, unspecified without hematuria; N32.81 Overactive bladder | CPT/HCPCS: 81003; 99212 ==

== ENCOUNTER 2024-11-07 14:27 | Outpatient (REF) | payer MEDICARE, BC, SELFPAY ==
[2024-11-07 14:31] LABS: MANUAL DIFF FLAG NO
[2024-11-07 14:34] LABS: Basophils Percent Auto 0.6 % (0-2); Eosinophils Absolute Auto 0.2 X10*3/uL (0.0-0.4); Eosinophils Percent Auto 2.8 % (0-4); Hematocrit 36.7 % (37.0-47.0); Hemoglobin 13.2 g/dl (12.0-16.0); Imm Gran Abs Auto 0.01 X10*3/uL (0.00-0.03); Imm Gran Pct Auto 0.2 % (0.0-0.4); Lymphocytes Absolute Auto 1.4 X10*3/uL (1.2-4.9); Lymphocytes Percent Auto 25.5 % (20-40); Mean Corpuscular Hemoglobin 31.9 pg (27.0-33.0); Mean Corpuscular Volume 88.6 fL (80.0-98.0); Mean Platelet Volume 9.4 fL (9.4-12.3); Monocytes Absolute Auto 0.6 X10*3/uL (0.1-1.2); Monocytes Percent Auto 11.9 % (2-11); Neutrophils Absolute Auto 3.1 x10*3/uL (2.0-8.3); Platelet Count 261 X10*3/uL (160-400); Red Blood Count 4.14 X10*6/uL (4.20-5.50); Red Cell Distribution Width 12.6 % (11.0-16.0); White Blood Count 5.3 X10*3/uL (4.8-10.8)
[2024-11-07 15:06] LABS: Alanine Aminotransferase 11 U/L (0-31); Alkaline Phosphatase 54 U/L (39-117); Anion Gap 11 (12-20); Aspartate Amino Transferase 16 U/L (5-31); Bilirubin Total 0.4 mg/dL (0.0-1.0); Blood Urea Nitrogen 13 mg/dL (9-16); Calcium 9.1 mg/dL (8.4-10.2); Carbon Dioxide 25 mmol/L (22-29); Chloride 105 mmol/L (96-108); Estimated Glomerular Filt Rate > 60; Glucose Fasting 92 mg/dL (60-99); Potassium 3.7 mmol/L (3.3-5.1); Sodium 137 mmol/L (135-145); Total Protein 7.3 g/dL (6.5-8.0)
[2024-11-07 15:08] LABS: TSH reflex Free T4 0.96 uIU/mL (0.32-4.0)
[2024-11-07 15:25] LABS: Erythrocyte Sedimentation Rate 36 MM/HR (0-20)
== END 2024-11-07 14:28 | disposition home or self-care (01) ==
LOC: HO.LNP 14:27
PROVIDERS: Visit Provider Internal Medicine
DX: R53.83 Other fatigue (principal)
CPT/HCPCS: 80053; 84443; 85025; 85652

== ENCOUNTER 2025-04-23 10:36 | Outpatient (REF) | payer MEDICARE, BC, SELFPAY ==
--- OUTSIDE RECORDS SUMMARY | 2024-07-01 11:53 | XMS_ITS ---
Author Organization Devin Morgan MD Address [address] [place] [phone] Care Team Providers Care Senior Sql Database Developer Name Role Phone Devin Morgan Primary Care Provider [phone] REASON FOR VISIT ? premedicate Encounters Encounter Location Date Provider Diagnosis Devin Morgan MD [address] [place] [phone] 07/01/2024 Devin Morgan Plan Of Treatment Next Appt Details Provider Name:Devin Malone ier, 04/27/2025 02:30:00 PM, [address], [address], [place], [place], [phone], Progress Notes * Malena LENZ MDOB:1934 (88 yo F)Acc No.[id number]:07/01/2024 Patient: Jannet naasarwatMalena :1935 A ge:88 Y S ex:Female Address:[address] [place] [address], [place], [address] * true * Date: Generated for Printi ng/Faxing/eTransmitting on: 04/23/2025 12:07 PM EDT
--- OUTSIDE RECORDS SUMMARY | 2024-11-07 09:30 | XMS_ITS ---
Author Organization Devin Morgan MD Address [address] [place], [place] [phone] Care Team Providers Care Tin Recovery Worker Name Role Phone Devin Morgan Primary Care Provider [phone] Allergies Allergen (clinical drug ingredient) Drug/Non Drug Allergy documented on EMR Reaction Allergy Type Onset Date Status Keflex Unknown Drug Allergy Active erythromycin Erythromycin Unknown Drug Allergy A ctive sulfamethoxazole / trimethoprim Bactrim DS Unknown Drug Allergy Active 12 Hour Nasal [place] Unknown Drug Allergy Active clindamycin Clindamycin Unknown Drug Allergy Act tommy atorvastatin Atorvastatin fatigue Drug Allergy A ctive Results Component Value Reference Range Notes Complete Blood Count Auto Di ff Reviewed date:11/10/2024 12:54:37 PM Interpretation: Performing Lab:[facility], [address] [place] [phone] Notes/Report: White Blood Count 5.3 4.8-10.8 X10*3/uL Red Blood Count 4.14 4.20-5.50 X10*6/uL Hemoglobin 13.2 12.0-16.0 g/dl Hematocrit 36.7 37.0-47.0 % Mean Corpuscular Volume 88.6 80.0-98.0 fL Mean Corpuscular Hemoglobin 31.9 27.0-33.0 pg Mean Corpuscular HGB Conc 36.0 31.0-35.0 g/dl Red Cell Distribution Width 12.6 11.0-16.0 % Platelet Count 261 160-400 X10*3/uL Mean Platelet Volume 9.4 9.4-12.3 fL Neutrophils Percent Auto 59.0 45-73 % Imm Gran Pct Auto 0.2 0.0-0.4 % Lymphocytes Percent Auto 25.5 20-40 % Monocytes Percent Auto 11.9 2-11 % Eosinophils Percent Auto 2.8 0-4 % Basophils Percent Auto 0.6 0-2 % NRBC Pct Auto 0.0 0.0-0.2 /100WBC Neutrophils Absolute Auto 3.1 2.0-8.3 x10*3/u L Imm Gran Abs Auto 0.01 0.00-0.03 X10*3/uL Lymphocytes Absolute Auto 1.4 1.2-4.9 X10*3/u L Monocytes Absolute Auto 0.6 0.1-1.2 X10*3/uL Eosinophils Absolute Auto 0.2 0.0-0.4 X10*3/u L Basophils Absolute Auto 0.0 0.0-0.2 X10*3/uL NRBC Abs Auto 0.000 0.0-0.012 X10*3/uL Erythrocyte Sedimentation Ra te Reviewed date:11/08/2024 06:15:33 PM Interpretation: Performing Lab:[facility], [address] [place] [phone] Notes/Report: Erythrocyte Sedimentation Rate 36 0-20 MM/HR Patients with polycythemia and many hemoglobin abnormalities may have depressed sed rates whereas patients with anemia may have elevated sed rates. Comprehensive [place]. Panel Fa Reviewed date:11/10/2024 05:20:05 PM Interpretation: Performing Lab:[facility], [address] [place] [phone] Notes/Report: Sodium 137 135-145 mmol/L Potassium 3.7 3.3-5.1 mmol/L Chloride 105 96-108 mmol/L Carbon Dioxide 25 22-29 mmol/L Anion Gap 11 12-20 Blood Urea Nitrogen 13 9-16 mg/dL Creatinine 0.58 0.5-1.4 mg/dL Estimated Glomerular Filt Rate > 60 Chronic Kidney Disease: Estimated GFR < 60 mL/min/1.73m2 Severe Kidney Disease: Estimated GFR < 15 mL/min/1.73m2 Glucose Fasting 92 60-99 mg/dL Calcium 9.1 8.4-10.2 mg/dL Bilirubin Total 0.4 0.0-1.0 mg/dL Aspartate Amino Transferase 16 5-31 U/L Alanine Aminotransferase 11 0-31 U/L Total Protein 7.3 6.5-8.0 g/dL Albumin Level 4.0 3.5-5.0 g/dL Alkaline Phosphatase 54 39-117 U/L TSH reflex Free T4 Reviewed date:11/08/2024 06:15:41 PM Interpretation: Performing Lab:[facility], [address] [place] [phone] Notes/Report: TSH reflex Free T4 0.96 0.32-4.0 uIU/mL REASON FOR VISIT 6 MO F/U Medications Medication SIG (Take, Route, Frequency, Duration) Notes Start Date End Date Status Lisinopril-hydroCHLOROth iazide 20-12.5 MG 1 tablet Orally Once a day for 30 day(s) 05/19/2024 Active Omeprazole 40 MG TAKE ONE CAPSULE BY MOUTH EVERY MORNING ON EMPTY STOMACH AT LEAST 30 MINUTES BEFORE BREAKFAST for 90 Active Nystatin 229182 UNIT/GM 1 application Ex ternally Twice a day for 30 days 06/17/2024 Active Dicyclomine HCl 10 MG 2 capsules Orally Three times a day Active Estrace 0.1 MG/GM as directed Vaginal Once a day for 90 days Active Econazole Nitrate 1 % 1 application Exte rnally Once a day for 7 day(s) 04/30/2023 Not-uRkhsana oconnell Vital Signs Blood pressure systolic 170 mm Hg 11/08/19 25 Blood pressure diastolic 110 mm Hg 025 Height 63.5 in 11/07/2024 Weight 168 lbs 11/07/2024 BMI 29.29 kg/m2 11/07/2024 Patient not sure if she took her meds today Encounters Encounter Location Date Provider Diagnosis Devin Morgan MD [address] [place] [address] [address] [place], [place] [phone] 11/07/2024 Devin Morgan Lethargy R53.83 Assessments Encounter Date Diagnosis (ICD Code) Assessment Notes Treatment Notes Treatment Clinical Notes Section Notes 11/07/2024 Lethargy (ICD-10 - R53.83) feels tired thinks that is related to her eye disorder. has been under a lot of stress. may be related to that. will do some blood work to be certain that is not related to an underlying condition Plan Of Treatment Treatment Notes Assessment Notes Lethargy feels tired thinks t hat is related to her eye disorder. has been under a lot of stress. may be related to that. will do some blood work to be certain that is not related to an underlying condition Next Appt Details Follow Up: 4 Weeks, Reason: Provider Name:Devin Malone ier, 04/27/2025 02:30:00 PM, [address], [address], [place], [place], [phone], Progress Notes * Malena LENZ MDOB:1934 (89 yo F)Acc No.[id number]:11/07/2024 Progress Notes Patient: Malena EDWARDS Provider: Autumn Morgan MD :1935 A ge:89 Y S ex:Female Date:11/07/2024 Address:[address] [place], [place] [phone] Subjective: * Chief Complaints: * 6 MO F/U * HPI: S ymptom(s): patient is a 89yo female here for 6 month folow up visit/ not feeling great / tired headaches. no energy. blames it on left eye with niot seeing normally. * ROS: G eneral/Constitutional: Denies C hills. D enies F atigue. D enies F ever. D enies H eadache. E NT: Denies S ore throat. R espiratory: Denies C ough. D enies S hortness of breath at rest. D enies S hortness of breath with exertion. C ardiovascular: Denies C hest pain at rest. D enies C hest pain with exertion. D enies D izziness. D enies S hortness of breath. G astrointestinal: Admits A bdominal pain. A dmits D iarrhea. D enies N ausea. c omplaining of feeling that her brain is not functioning as well but can play the piano. * Medical History: * Surgical History: * Hospitalization/Major Diagno stic Procedure: * Medications: T akingDicyclomine HCl 10 MG Capsule 2 capsules Orally Three times a day Estrace 0.1 MG/GM Cream as directed Vaginal Once a day Lisinopril-hydroCHLOROthiazide 20- 12.5 MG Tablet 1 tablet Orally Once a day Omeprazole 40 MG Capsule Delayed Release TAKE ONE CAPSULE BY MOUTH EVERY MORNING ON EMPTY STOMACH AT LEAST 30 MINUTES BEFORE BREAKFAST Nystatin 550613 UNIT/GM Cream 1 application Externally Twice a day Taking Dicyclomine HCl 10 MG Capsule 2 capsules Orally Three times a day Taking Estrace 0.1 MG/GM Cream as directed Vaginal Once a day Taking Lisinopril-hydroCHLOROthiazide 20-12.5 MG Tablet 1 tablet Orally Once a day Taking Omeprazole 40 MG Capsule Delayed Release TAKE ONE CAPSULE BY MOUTH EVERY MORNING ON EMPTY STOMACH AT LEAST 30 MINUTES BEFORE BREAKFAST Taking Nystatin 225765 UNIT/GM Cream 1 application Externally Twice a day Not-Taking/PRNEconazole Nitrate 1 % Cream 1 application Externally Once a day Not-Taking/PRN Econazole Nitrate 1 % Cream 1 application Externally Once a day DiscontinuedGemtesa 75 MG Tablet 1 tablet Orally Once a day Medication List reviewed and reconciled with the patientDiscontinued Gemtesa 75 MG Tablet 1 tablet Orally Once a day Medication List reviewed and reconciled with the patient * Allergies: A torvastatin: [id number] Hour Nasal SprayKeflexBactrim DSErythromycinClindamycinyes[Allergies Verified] Objective: * Vitals: H t: 63.5, Wt: 168, BMI:29.29, BP:170/110, Repeat BP:150/84, Wt-k.2. Patient not sure if she took her meds today. * Examination: G eneral Examination: GENERAL APPEARANCE: a lert, well hydrated, in no distress.? HEAD: n ormocephalic. SKIN: g ood turgor. HEART: n o murmurs, rubs, gallops, regular rate and rhythm.? LUNGS: n o wheezes, rales, rhonchi, good air movement, clear to auscultation bilaterally. Assessment: * Assessment: 1. L ethargy - R53.83 (Primary) Plan: * Treatment: * Procedure Codes: 3 6415 VENIPUNCT, ROUTINE* * Follow Up: 4 Weeks * * Sign off status: Completed true * Provider: Autumn Morgan MD Date: 0 11/07/2024 Generated for Lesa oconnell/Mable/Sanjeevsmitting on: 0 04/23/2025 12:06 PM EDT History and Physical Notes * HPI (History of Present Illness) Category Sub-Category Detail Notes Category Not es Symptom(s) patient is a 89 yo female here for 6 month folow up visit/ not feeling great / tired headaches. no energy. blames it on left eye with niot seeing normally Examination Category Sub-Category Detail Notes Category Not es General Examination GENERAL APPEARANCE: alert, w ell hydrated, in no distress HEAD: normocephalic HEART: no murmurs, rubs, ga llops, regular rate and rhythm LUNGS: no wheezes, rales, r honchi, good air movement, clear to auscultation bilaterally SKIN: good turgor
--- OUTSIDE RECORDS SUMMARY | 2024-12-15 10:15 | XMS_ITS ---
Author Organization Devin Morgan MD Address [address] [place], [place] [phone] Care Team Providers Care Nail Expert Name Role Phone Devin Morgan Primary Care Provider Allergies Allergen (clinical drug ingredient) Drug/Non Drug Allergy documented on EMR Reaction Allergy Type Onset Date Status Keflex Unknown Drug Allergy Active erythromycin Erythromycin Unknown Drug Allergy A ctive sulfamethoxazole / trimethoprim Bactrim DS Unknown Drug Allergy Active 12 Hour Nasal [place] Unknown Drug Allergy Active clindamycin Clindamycin Unknown Drug Allergy Act tommy atorvastatin Atorvastatin fatigue Drug Allergy A ctive REASON FOR VISIT 4 WK F/U Medications Medication SIG (Take, Route, Frequency, Duration) Notes Start Date End Date Status Nystatin 787146 UNIT/GM 1 application Ex ternally Twice a day for 30 days 06/17/2024 Active Econazole Nitrate 1 % 1 application Exte rnally Once a day for 7 day(s) 04/30/2023 Not-Taki ng Lisinopril-hydroCHLOROth iazide 20-12.5 MG TAKE ONE TABLET BY MOUTH EVERY DAY Active Dicyclomine HCl 10 MG 2 capsules Orally Three times a day Active Estrace 0.1 MG/GM as directed Vaginal Once a day for 90 days Active Omeprazole 40 MG TAKE ONE CAPSULE BY MOUTH EVERY MORNING ON EMPTY STOMACH AT LEAST 30 MINUTES BEFORE BREAKFAST for 90 Active Problems Problem Type SNOMED Code ICD Code Onset Dates Problem Status W/U Status Risk Notes Problem Memory loss (57655399) Memory loss (R41.3) Active confirmed Vital Signs Blood pressure systolic 144 mm Hg 12/16/19 25 Blood pressure diastolic 88 mm Hg 025 Height 63.5 in 12/15/2024 Weight 167 lbs 12/15/2024 BMI 29.12 kg/m2 12/15/2024 weight is down 1 pound since 11-07-24 Encounters Encounter Location Date Provider Diagnosis Devin Mogran MD [address] [place], [place] [phone] 12/15/2024 Devin Morgan Essential hypertension I10 and Memory loss R41.3 Assessments Encounter Date Diagnosis (ICD Code) Assessment Notes Treatment Notes Treatment Clinical Notes Section Notes 12/15/2024 Essential hypertension (ICD-10 - I10) doing well. on present meds, will continue current regiment 12/15/2024 Memory loss (ICD-10 - R41.3) to contiue with with piano, will cntinue to monitor Plan Of Treatment Medication Medication Name Sig Start Date Stop Date Notes Lisinopril-hydroCHLOROthiazi de 20-12.5 MG TAKE ONE TABLET BY MOUTH EVERY DAY Treatment Notes Assessment Notes Essential hypertension doing well. on pr esent meds, will continue current regiment Memory loss to contiue with with piano, will cntinue to monitor Next Appt Details Provider Name:Devin Malone ier, 04/27/2025 02:30:00 PM, [address] [facility], [address], [place], [place], [phone], Progress Notes * Malena LENZ MDOB:1934 (89 yo F)Acc No.[id number]:12/15/2024 Progress Notes Patient: Jannet Malena WEBER Provider: Autumn Morgan MD :1935 A ge:89 Y S ex:Female Date:12/15/2024 Address:[address] [place], [place] [phone] Subjective: * Chief Complaints: * 4 WK F/U * HPI: S ymptom(s): patient is a 89 yo female here for 4 week follow up visit/ is out walking/ has slicking in knee that was operated on 2 years ago. having problems with memory. * ROS: G eneral/Constitutional: Denies C hills. D enies F atigue. D enies F ever. D enies H eadache. E NT: Denies S ore throat. R espiratory: Denies C ough. D enies S hortness of breath at rest. D enies S hortness of breath with exertion. G astrointestinal: Denies D iarrhea. D enies N ausea. * Medical History: * Surgical History: * Hospitalization/Major Diagno stic Procedure: * Medications: T akingDicyclomine HCl 10 MG Capsule 2 capsules Orally Three times a day Estrace 0.1 MG/GM Cream as directed Vaginal Once a day Omeprazole 40 MG Capsule Delayed Release TAKE ONE CAPSULE BY MOUTH EVERY MORNING ON EMPTY STOMACH AT LEAST 30 MINUTES BEFORE BREAKFAST Nystatin 703591 UNIT/GM Cream 1 application Externally Twice a day Lisinopril-hydroCHLOROthiazide 20-12.5 MG Tablet TAKE ONE TABLET BY MOUTH EVERY DAY Taking Dicyclomine HCl 10 MG Capsule 2 capsules Orally Three times a day Taking Estrace 0.1 MG/GM Cream as directed Vaginal Once a day Taking Omeprazole 40 MG Capsule Delayed Release TAKE ONE CAPSULE BY MOUTH EVERY MORNING ON EMPTY STOMACH AT LEAST 30 MINUTES BEFORE BREAKFAST Taking Nystatin 502667 UNIT/GM Cream 1 application Externally Twice a day Taking Lisinopril-hydroCHLOROthiazide 20-12.5 MG Tablet TAKE ONE TABLET BY MOUTH EVERY DAY Not-Taking/PRNEconazole Nitrate 1 % Cream 1 application Externally Once a day Medication List reviewed and reconciled with the patientNot-Taking/PRN Econazole Nitrate 1 % Cream 1 application Externally Once a day Medication List reviewed and reconciled with the patient * Allergies: A torvastatin: [id number] Hour Nasal SprayKeflexBactrim DSErythromycinClindamycinyes[Allergies Verified] Objective: * Vitals: H t: 63.5, Wt: 167, BMI:29.12, BP:144/88, Repeat BP:120/80, Wt-k.75. weight is down 1 pound since 11-07-24. * Examination: G eneral Examination: GENERAL APPEARANCE: a lert, well hydrated, in no distress.? HEAD: n ormocephalic. SKIN: g ood turgor. HEART: r egular rate and rhythm, no murmurs, rubs, gallops.? LUNGS: n o wheezes, rales, rhonchi, good air movement, clear to auscultation bilaterally. Assessment: * Assessment: 1. E ssential hypertension - I10 (Primary) 2 . M gilda loss - R41.3 ? Plan: * Treatment: 2. M gilda loss Notes: to contiue with with piano, will cntinue to monitor * Procedure Codes: * * Sign off status: Completed true * Provider: Autumn Morgan MD Date: 0 12/15/2024 Generated for Cki ng/Mable/eTransmitting on: 0 04/23/2025 12:07 PM EDT History and Physical Notes * HPI (History of Present Illness) Category Sub-Category Detail Notes Category Not es Symptom(s) patient is a 89 yo female here for 4 week follow up visit/ is out walking/ has slicking in knee that was operated on 2 years ago. having problems with memory. Examination Category Sub-Category Detail Notes Category Not es General Examination GENERAL APPEARANCE: alert, w ell hydrated, in no distress HEAD: normocephalic HEART: regular rate and rhy thm, no murmurs, rubs, gallops LUNGS: no wheezes, rales, r honchi, good air movement, clear to auscultation bilaterally SKIN: good turgor
--- OUTSIDE RECORDS SUMMARY | 2025-02-12 10:15 | XMS_ITS ---
Author Organization Devin Morgan MD Address [address] [place], [place] [phone] Care Team Providers Care Language Arts Teacher Name Role Phone Devin Morgan Primary Care Provider Allergies Allergen (clinical drug ingredient) Drug/Non Drug Allergy documented on EMR Reaction Allergy Type Onset Date Status Keflex Unknown Drug Allergy Active erythromycin Erythromycin Unknown Drug Allergy A ctive sulfamethoxazole / trimethoprim Bactrim DS Unknown Drug Allergy Active 12 Hour Nasal [place] Unknown Drug Allergy Active clindamycin Clindamycin Unknown Drug Allergy Act tommy atorvastatin Atorvastatin fatigue Drug Allergy A ctive REASON FOR VISIT painful right ankle no injury x 2 days Medications Medication SIG (Take, Route, Frequency, Duration) Notes Start Date End Date Status Estrace 0.1 MG/GM as directed Vaginal Once a day for 90 days Active Omeprazole 40 MG TAKE ONE CAPSULE BY MOUTH EVERY MORNING ON EMPTY STOMACH AT LEAST 30 MINUTES BEFORE BREAKFAST for 90 Active Nystatin 945401 UNIT/GM 1 application Ex ternally Twice a day for 30 days 06/17/2024 Active Lisinopril-hydroCHLOROth iazide 20-12.5 MG TAKE ONE TABLET BY MOUTH EVERY DAY Active Econazole Nitrate 1 % 1 application Exte rnally Once a day for 7 day(s) 04/30/2023 Not-Taki ng Dicyclomine HCl 10 MG 2 capsules Orally Three times a day Active Vital Signs Blood pressure systolic 182 mm Hg 02/13/20 25 Blood pressure diastolic 98 mm Hg 025 Height 63.5 in 02/12/2025 Weight 170 lbs 02/12/2025 BMI 29.64 kg/m2 02/12/2025 weight is up 3 pounds since 12-15-24 Encounters Encounter Location Date Provider Diagnosis Devin Morgan MD [address] [place] [address] Drive [address] [place], [place] [phone] 02/12/2025 Devin Cathy Ankle pain, unspecified chronicity, unspecified laterality M25.579 Assessments Encounter Date Diagnosis (ICD Code) Assessment Notes Treatment Notes Treatment Clinical Notes Section Notes 02/12/2025 Ankle pain, unspecified chronicity, unspecified laterality (ICD-10 - M25.579) the rt ankle may have some acute arthritis and she would probably benefit from a shot of cortisone will refer to [facility]/ patient will be going to [facility] in [place] Plan Of Treatment Treatment Notes Assessment Notes 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, 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, unspecified laterality the rt ankle may have some acute arthritis and she would probably benefit from a shot of cortisone will refer to [facility]/ patient will be going to [facility] in [place] Next Appt Details Provider Name:Devin Malone ier, 04/27/2025 02:30:00 PM, [address] [place] [address] Drive, [address], [place], [place], [phone], Progress Notes * Malena LENZ MDOB:1934 (89 yo F)Acc No.[id number]:02/12/2025 Progress Notes Patient: Malena EDWARDS Provider: Autumn Morgan MD :1935 A ge:89 Y S ex:Female Date:02/12/2025 Address:[address] [place], [place] [phone] Subjective: * Chief Complaints: * P ainful right ankle no injury x 2 days * HPI: S ymptom(s): patient is a 89 yo female here with complaint of p ain in ankle for 2 days is limping along. no injury. * ROS: G eneral/Constitutional: Denies C hills. [...] AT LEAST 30 MINUTES BEFORE BREAKFAST Nystatin 378420 UNIT/GM Cream 1 application Externally Twice a [...] LEAST 30 MINUTES BEFORE BREAKFAST Taking Nystatin 621424 UNIT/GM Cream 1 application Externally Twice a day Taking Lisinopril-hydroCHLOROthiazide 20-12.5 MG Tablet TAKE ONE TABLET BY MOUTH EVERY DAY Not-Taking/PRNEconazole Nitrate 1 % Cream 1 application Externally Once a day Medication List reviewed and reconciled with the patientNot-Taking/PRN Econazole Nitrate 1 % Cream 1 application Externally Once a day Medication List reviewed and reconciled with the patient * Allergies: A torvastatin: [id number] Hour Nasal SprayKeflexBactrim DSErythromycinClindamycinyes[Allergies Verified] Objective: * Vitals: H t: 63.5, Wt: 170, BMI:29.64, BP:182/98, Repeat BP:140/84, Wt-k.11. weight is up 3 pounds since 12-15-24. * Examination: G eneral Examination: GENERAL APPEARANCE: a lert, well hydrated, in no distress.? EXTREMITIES: a bnormal ankle does not appear swollen or ecchymotic but is tender to palpation on the lateral maleolus and tender to range of motion. Assessment: * Assessment: 1. A nkle pain, unspecified chronicity, unspecified laterality - M25.579 (Primary) ? Plan: * Treatment: * Procedure Codes: * * Sign off status: Completed true * Provider: Autumn Morgan MD Date: 0 02/12/2025 Generated for Lesa oconnell/Mable/Yashitting on: 0 04/23/2025 12:06 PM EDT History and Physical Notes * HPI (History of Present Illness) Category Sub-Category Detail Notes Category Not es Symptom(s) patient is a 89 yo female here with complaint of pain in ankle for 2 days is limping along. no injury Examination Category Sub-Category Detail Notes Category Not es General Examination GENERAL APPEARANCE: alert, w ell hydrated, in no distress EXTREMITIES: abnormal ankle does not appear swollen or ecchymotic but is tender to palpation on the lateral maleolus and tender to range of motion
--- OUTSIDE RECORDS SUMMARY | 2025-04-23 04:30 | XMS_ITS ---
Author Organization Devin Morgan MD Address [address] [place], [place] [phone] Care Team Providers Care Refrigeration Installer Name Role Phone Devin Morgan Primary Care Provider Results Component Value Reference Range Notes Complete Blood Count Auto Di ff (Not yet reviewed by provider) Interpretation: Performing Lab:[facility], [address] [place] [phone] Notes/Report: White Blood Count 5.5 4.8-10.8 X10*3/uL Red Blood Count 4.34 4.20-5.50 X10*6/uL Hemoglobin 13.8 12.0-16.0 g/dl Hematocrit 38.9 37.0-47.0 % Mean Corpuscular Volume 89.6 80.0-98.0 fL Mean Corpuscular Hemoglobin 31.8 27.0-33.0 pg Mean Corpuscular HGB Conc 35.5 31.0-35.0 g/dl Red Cell Distribution Width 12.9 11.0-16.0 % Platelet Count 268 160-400 X10*3/uL Mean Platelet Volume 10.4 9.4-12.3 fL Neutrophils Percent Auto 63.0 45-73 % Imm Gran Pct Auto 0.2 0.0-0.4 % Lymphocytes Percent Auto 24.9 20-40 % Monocytes Percent Auto 9.0 2-11 % Eosinophils Percent Auto 2.0 0-4 % Basophils Percent Auto 0.9 0-2 % NRBC Pct Auto 0.0 0.0-0.2 /100WBC Neutrophils Absolute Auto 3.5 2.0-8.3 x10*3/u L Imm Gran Abs Auto 0.01 0.00-0.03 X10*3/uL Lymphocytes Absolute Auto 1.4 1.2-4.9 X10*3/u L Monocytes Absolute Auto 0.5 0.1-1.2 X10*3/uL Eosinophils Absolute Auto 0.1 0.0-0.4 X10*3/u L Basophils Absolute Auto 0.1 0.0-0.2 X10*3/uL NRBC Abs Auto 0.000 0.0-0.012 X10*3/uL Lipid Panel (Not yet review ed by provider) Interpretation: Performing Lab:[address] [phone] Notes/Report: Triglycerides 96 <150 mg/dL Desirable Triglyceride: less than 150 mg/dL Borderline High Triglyceride 150-199 mg/dL High Triglyceride: 200-499 mg/dL Very High Triglyceride: greater than or equal to 5OO mg/dL Cholesterol 244 <200 mg/dL Desirable Cholesterol: less than 200 mg/dL Borderline High Cholesterol: 200-239 mg/dL High Cholesterol: greater than 239 mg/dL LDL Cholesterol Calculated 176 <100 mg/dL Desirable LDL: less than 100 mg/dL Near Optimal/Above Optimal LDL: 110-129 mg/dL Borderline High LDL: 130-159 mg/dL High LDL: 160-189 mg/dL Very High LDL: greater than or equal to 190 mg/dL HDL Cholesterol 49 >40 mg/dL Desirable HDL: greater than 40 mg/dL Note: This HDL assay may give artificially low results in patients with liver disease. UA ClnCatch+Micro w/rflx Cul t (Not yet reviewed by provider) Interpretation: Performing Lab:[facility], [address] [place] [phone] Notes/Report: Urine, Clean Catch Color Urine Yellow Appearance Urine Clear PH 8.0 5.0-9.0 Glucose Urine UA Negative Negative mg/dL Urine Blood Trace Negative Specific [place] - Urine 1.010 1.005-1.025 Urine Protein 30 (1+) Neg-Trace mg/dL Urine Ketones Negative Negative mg/dL Nitrite Urine Negative Negative Leukocyte Esterase Urine Moderate (2+) Negative RBC Urine 3-5 0-2 /HPF WBC Urine 21-50 0-5 /HPF Squamous Epithelial Cell Urine 3-5 0-2 /HPF Bacteria Urine 4+ None Seen Hyaline Casts Urine 0-2 0-2 /LPF REASON FOR VISIT FASTING LABS Encounters Encounter Location Date Provider Diagnosis Devin Morgan MD [address] [place], [place] [phone] 04/23/2025 Devin Morgan Essential hypertension I10 Assessments Encounter Date Diagnosis (ICD Code) Assessment Notes Treatment Notes Treatment Clinical Notes Section Notes 04/23/2025 Essential hypertension (ICD-10 - I10) Plan Of Treatment Pending Test Test Name Order Date Complete Blood Count Auto Diff 5 Comprehensive [place]. Panel Fast 5 Lipid Panel 04/23/2025 UA ClnCatch+Micro w/rflx Cult 04/23/2025 Next Appt Details Provider Name:Devin Malone ier, 04/27/2025 02:30:00 PM, [address] [facility], [address], [place], [place], [phone], Progress Notes * Malena LENZ MDOB:1934 (89 yo F)Acc No.[id number]:04/23/2025 Progress Note Patient: Malena EDWARDS Provider: Autumn Morgan MD :1935 A ge:89 Y S ex:Female Date:04/23/2025 Address:[address] [place], [place] [phone] Subjective: * Chief Complaints: * 1 . FASTING LABS. * Medical History: Objective: * Vitals: Assessment: * Assessment: 1. E ssential hypertension - I10 (Primary) Plan: * Treatment: * Procedure Codes: 3 6415 VENIPUNCT, ROUTINE* * * The named appointment provid er may or may not be the originator of this progress note, and it is not deemed complete until electronically signed by the appointment provider. Sign off status: Pending * Provider: Autumn Morgan MD Date: 04/23/2025 Generated for Lesa ng/Fagarog/eTransmitting on: 04/23/2025 12:07 PM EDT
[2025-04-23 10:40] LABS: MANUAL DIFF FLAG NO
[2025-04-23 10:52] LABS: Hematocrit 38.9 % (37.0-47.0); Hemoglobin 13.8 g/dl (12.0-16.0); Imm Gran Abs Auto 0.01 X10*3/uL (0.00-0.03); Imm Gran Pct Auto 0.2 % (0.0-0.4); Lymphocytes Absolute Auto 1.4 X10*3/uL (1.2-4.9); Mean Corpuscular HGB Conc 35.5 g/dl (31.0-35.0); Mean Corpuscular Hemoglobin 31.8 pg (27.0-33.0); Mean Corpuscular Volume 89.6 fL (80.0-98.0); NRBC Abs Auto 0.000 X10*3/uL (0.0-0.012); NRBC Pct Auto 0.0 /100WBC (0.0-0.2); Platelet Count 268 X10*3/uL (160-400); Red Blood Count 4.34 X10*6/uL (4.20-5.50); White Blood Count 5.5 X10*3/uL (4.8-10.8)
[2025-04-23 10:57] LABS: Appearance Urine Clear; Glucose Urine UA Negative (Negative); PH 8.0 (5.0-9.0); Specific Gravity - Urine 1.010 (1.005-1.025); UMIC TRIGGER UACC YES
[2025-04-23 11:03] LABS: UACC Culture Trigger YES
[2025-04-23 11:09] LABS: Alanine Aminotransferase 13 U/L (0-31); Albumin Level 4.3 g/dL (3.5-5.0); Alkaline Phosphatase 63 U/L (39-117); Anion Gap 14 (12-20); Aspartate Amino Transferase 22 U/L (5-31); Blood Urea Nitrogen 13 mg/dL (9-16); Calcium 9.3 mg/dL (8.4-10.2); Carbon Dioxide 24 mmol/L (22-29); Chloride 106 mmol/L (96-108); Cholesterol 244 mg/dL (<200); Estimated Glomerular Filt Rate > 60; HDL Cholesterol 49 mg/dL (>40); Potassium 3.8 mmol/L (3.3-5.1); Sodium 140 mmol/L (135-145); Total Protein 7.1 g/dL (6.5-8.0); Triglycerides 96 mg/dL (<150)
--- OUTSIDE RECORDS SUMMARY | 2025-04-23 12:07 | XMS_ITS | Patient Health Record ---
Author Organization Devin Morgan MD Address [address] [place], [place] [id number] Care Team Providers Care Sales Review Clerk Name Role Phone Devin Morgan Primary Care Provider Allergies Allergen (clinical drug ingredient) Drug/Non Drug Allergy documented on EMR Reaction Allergy Type Onset Date Status Keflex Unknown Drug Allergy Active erythromycin Erythromycin Unknown Drug Allergy A ctive sulfamethoxazole / trimethoprim Bactrim DS Unknown Drug Allergy Active 12 Hour Nasal Edgar Unknown Drug Allergy Active clindamycin Clindamycin Unknown Drug Allergy Act tommy atorvastatin Atorvastatin fatigue Drug Allergy A ctive Results Component Value Reference Range Notes Occult Blood, Stool, Guaiac Reviewed date:04/24/2024 02:26:11 PM Interpretation:Negative Performing Lab: Notes/Report: Negative Occult Blood, Stool, Guaiac Neg MM tomosynthesis screening L T Reviewed date:08/08/2024 04:39:06 PM Interpretation: Performing Lab: Notes/Report: [facility] [address] 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 [address] Mammography Report Signed with Addenda Patient: Malena Lenz MR#: [id number] : 1935 Acct:[id number] Age/Sex: 89 / F ADM Date: 07/30/24 Loc: HO.MAMMO Attending Dr: Devin Morgan MD Ordering Physician: Devin Morgan MD Results: 2Be nign Findings Date of Service: 07/30/24 Follow Up: 1 Year From [facility] Mammogram Procedure(s): MM tomosynthesis screening LT Accession Number(s): [id number] cc: Devin Morgan MD ADDENDUM ADDENDUM #1 ADDENDUM: EXAMINATION: MM SCREENING DIGITAL BREAST TOMOSYNTHESIS, LEFT COMPARISON: Mammography: This st udy is compared with prior exams OVERALL ASSESSMENT: BI-RADS 2 - Benign Findings RECOMMENDATION: 1 year F/U Electronically shelby d by: Christy Patterson DO 08/08/2024 09:46 AM EST Addendum Dictated By : Christy Patterson DO Addendum Signed By: <Electronically signed by Christy Patterson DO in OV> 08/08/24945 Addendum Cosigned By: DD/ /13/1430 TD/TT: 07/30/2407/13/1453 EXAMINATION: MM SCREENING DIGITAL BREAST TOMOSYNTHESIS, BILATERAL CLINICAL INFORMATION: Screening. Asymptomatic. Right mastectomy. COMPARISON: Mammography: This st udy is compared with prior exams dating back to TECHNIQUE: Digital breast tomosynthesis is performed in both the craniocaudal and mediolateral oblique views along with computer-aided detection (CAD). Synthesized 2D image s are generated from the tomosynthesis. FINDINGS: There are scattered areas of fibroglandular density (ACR BI-RADS breast composition Category b). Postsurgical changes . Marker clip from previous needle core biopsy. There are no significant masses, abnormal calcifications, or other abnormalities. MM/MM tomosynthesis screening LT IMPRESSION: No mammographic evidence of malignancy. ASSESSMENT: BI-RADS BI-RADS 2 - Benign Findings RECOMMENDATION: Routine annual mammography screening. 1 year F/U This examination yulissa uld not preclude the clinical evaluation of a suspicious palpable abnormality. This patient's information was entered into a reminder system with a target due date for their next mammogram. Electronically shelby d by: Christy Patterson DO 08/06/2024 10:27 AM EST Dictated By: Christy Patterson DO Signed By: <Electronically signed by Christy Patterson DO in OV> 08/06/24 1027 DD/ 1430 TD/TT: 07/30/24 1453 Bilingual [employer] Retail: Kaci Escoto Reviewed date:11/08/2024 06:19:50 PM Interpretation: Performing Lab:[address] [phone] Notes/Report: Kaci Escoto See Note Specimen held untested for 24 hours; Call to request Chemistry testing. Complete Blood Count Auto Di ff Reviewed date:11/10/2024 12:54:37 PM Interpretation: Performing Lab:[facility], [address] [place] [phone] Notes/Report: White Blood Count 5.3 4.8-10.8 X10*3/uL [...] te Reviewed date:11/08/2024 06:15:33 PM Interpretation: Performing Lab:[facility], [address] [place] [phone] Notes/Report: Erythrocyte Sedimentation Rate 36 0-20 MM/HR Patients with polycythemia and many hemoglobin abnormalities may have depressed sed rates whereas patients with anemia may have elevated sed rates. Comprehensive [place]. Panel Fa Reviewed date:11/10/2024 05:20:05 PM Interpretation: Performing Lab:[facility], [address] [place] [phone] Notes/Report: Sodium 137 135-145 mmol/L Potassium 3.7 [...] T4 Reviewed date:11/08/2024 06:15:41 PM Interpretation: Performing Lab:[facility], [address] [place] [phone] Notes/Report: TSH reflex Free T4 0.96 0.32-4.0 uIU/mL Comprehensive Met. Panel (No t yet reviewed by provider) Interpretation: Performing Lab:[facility], [address] [place] [phone] Notes/Report: Sodium 140 135-145 mmol/L Potassium 3.8 3.3-5.1 mmol/L Chloride 106 96-108 mmol/L Carbon Dioxide 24 22-29 mmol/L Anion Gap 14 12-20 Blood Urea Nitrogen 13 9-16 mg/dL Creatinine 0.58 0.5-1.4 mg/dL Estimated Glomerular Filt Rate > 60 Chronic Kidney Disease: Estimated GFR < 60 mL/min/1.73m2 Severe Kidney Disease: Estimated GFR < 15 mL/min/1.73m2 Glucose Random 94 60-115 mg/dL Calcium 9.3 8.4-10.2 mg/dL Bilirubin Total 0.7 0.0-1.0 mg/dL Aspartate Amino Transferase 22 5-31 U/L Alanine Aminotransferase 13 0-31 U/L Total Protein 7.1 6.5-8.0 g/dL Albumin Level 4.3 3.5-5.0 g/dL Alkaline Phosphatase 63 39-117 U/L Complete Blood Count Auto Di ff (Not yet reviewed by provider) Interpretation: Performing Lab:[facility], [address] [place] [phone] Notes/Report: White Blood Count 5.5 4.8-10.8 X10*3/uL [...] 0.000 0.0-0.012 X10*3/uL Lipid Panel (Not yet reviewe d by provider) Interpretation: Performing Lab:[address] [phone] Notes/Report: Triglycerides 96 <150 mg/dL Desirable Triglyceride: [...] (Not yet reviewed by provider) Interpretation: Performing Lab:[address] [phone] Notes/Report: Urine, Clean Catch Color Urine Yellow Appearance Urine Clear PH 8.0 5.0-9.0 Glucose Urine UA Negative Negative mg/dL Urine Blood Trace Negative Specific [place] - Urine 1.010 1.005-1.025 Urine Protein 30 (1+) Neg-Trace mg/dL Urine Ketones Negative Negative mg/dL Nitrite Urine Negative Negative Leukocyte Esterase Urine Moderate (2+) Negative RBC Urine 3-5 0-2 /HPF WBC Urine 21-50 0-5 /HPF Squamous Epithelial Cell Urine 3-5 0-2 /HPF Bacteria Urine 4+ None Seen Hyaline Casts Urine 0-2 0-2 /LPF Reason For Referral Reason HISTORY OF COLON CAN CER Diagnosis [...] Patti A 08/25/2024 01:52:02 PM >OFFICE NOTE Choco YAÑEZ Patti A 08/25/2024 01:52:05 PM > Referral Priority Routine Referral Appointment Date 07/23/2024 Medications Medication SIG (Take, Route, Frequency, Duration) Notes Start Date End Date Status Dicyclomine HCl 10 MG 2 capsules Orally Three times a day Active Estrace 0.1 MG/GM as directed Vaginal Once a day for 90 days Active Omeprazole 40 MG TAKE ONE CAPSULE BY MOUTH EVERY MORNING ON EMPTY STOMACH AT LEAST 30 MINUTES BEFORE BREAKFAST for 90 Active Nystatin 392958 UNIT/GM 1 application Ex ternally Twice a day for 30 days 06/17/2024 Active Lisinopril-hydroCHLOROth iazide 20-12.5 MG TAKE ONE TABLET BY MOUTH EVERY DAY Active Econazole Nitrate 1 % 1 application Exte rnally Once a day for 7 day(s) 04/30/2023 Not-Taki ng Immunizations Vaccine Route Administration Date Status Comme nts Fluarix Quadrivalent - 150 Unknown 06/01/2023 Administe red Social History Tobacco Use: Social History Observation Description Date Details (start date - stop date) Never Smoker NA - NA Tobacco Use/Smoking Question Answer Notes Patient is [...] Never (0 point) Points 1 Interpretation Negative Problems Problem Type SNOMED Code ICD Code Onset Dates Problem Status W/U Status Risk Notes Problem Essential hypertension (87364474) Essential hypertension (I10) Active confirmed Problem Memory loss (49714324) Memory loss (R41.3) Active confirmed Problem History of malignant neoplasm of colon (123955128) History of colon cancer (Z85.038) Active confirmed Problem [id number] 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) Active confirmed Problem 267508627 History of uterine cancer (Z85.42) Active confirmed Problem [id number] 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 Vital Signs Blood pressure diastolic 98 mm Hg 02/12/2025 ramiro ght is up 3 pounds since 12-15-24 Height 63.5 in 02/12/2025 weight is up 3 pounds since 12-15-24 Blood pressure systolic 182 mm Hg 02/12/2025 weig ht is up 3 pounds since 12-15-24 Weight 170 lbs 02/12/2025 weight is up 3 pounds since 12-15-24 BMI 29.64 kg/m2 02/12/2025 weight is up 3 pounds since 12-15-24 Encounters Encounter Location Date Provider Diagnosis Devin Morgan MD [address] [place] [id number] 04/23/2025 Devin Morgan Essential hypertension I10 Devin Morgan MD [address] [id number] 04/24/2024 Devin Morgan History of colon cancer Z85.038 ; Essential hypertension I10 ; Colon cancer screening Z12.11 and Depression screening Z13.31 Devin Morgan MD [address] [place] [id number] 05/19/2024 Devin Morgan Essential hypertension I10 Devin Morgan MD [address] [place] [address] [id number] 06/17/2024 Devin Morgan Skin yeast infection B37.2 and Essential hypertension I10 Devin Morgan MD [address] [place] [id number] 11/07/2024 Devin Morgan Lethargy R53.83 Devin Morgan MD [address] [place] [address] [address] [place] [id number] 12/15/2024 Devin Morgan Essential hypertension I10 and Memory loss R41.3 Devin Morgan MD [address] [place] [address] [id number] 02/12/2025 Devin Morgan Ankle pain, unspecified chronicity, unspecified laterality M25.579 Devin Morgan MD [address] [place] [address] [id number] 07/01/2024 Devin Morgan Assessments Encounter Date Diagnosis (ICD Code) Assessment Notes Treatment Notes Treatment Clinical Notes Section Notes 04/23/2025 Essential hypertension (ICD-10 - I10) 04/24/2024 History of colon cancer (ICD-10 - Z85.038) referral to dr garcia or jacy/ REFFERAL MADE TO DR ODOM AND IT WILL BE FAXED 04/24/2024 Essential hypertension (ICD-10 - I10) is a little high today, will contnue current regiment and will continue to monitor 05/19/2024 Essential hypertension (ICD-10 - I10) patient verbalized undestanding of change in medication and directions for use 06/17/2024 Skin yeast infection (ICD-10 - B37.2) patient verbalized medication and directions for use 06/17/2024 Essential hypertension (ICD-10 - I10) is a little high but had good readings at home, will continue curent regiment and will continue to monitor 11/07/2024 Lethargy (ICD-10 - R53.83) feels tired thinks that is related to her eye disorder. has been under a lot of stress. may be related to that. will do some blood work to be certain that is not related to an underlying condition 12/15/2024 Essential hypertension (ICD-10 - I10) doing well. on present meds, will continue current regiment 12/15/2024 Memory loss (ICD-10 - R41.3) to contiue with with piano, will cntinue to monitor 02/12/2025 Ankle pain, unspecified chronicity, unspecified laterality (ICD-10 - M25.579) the rt ankle may have some acute arthritis and she would probably benefit from a shot of cortisone will refer to [facility] ortho/ patient will be going to [facility] [place] [facility] in [place] 04/24/2024 Colon cancer screening (ICD-10 - Z12.11) guaiac negative 04/24/2024 Depression screening (ICD-10 - Z13.31) negative screen Plan Of Treatment Pending Test Test Name Order Date XR CHEST 2 VIEW PA & LAT 04/30/2023 Complete Blood Count Auto Diff 5 Comprehensive Met. Panel 04/23/2025 Comprehensive [place]. Panel Fast 5 Lipid Panel 04/23/2025 UA ClnCatch+Micro w/rflx Cult 04/23/2025 Next Appt Details Provider Name:Devin wilson, 04/27/2025 02:30:00 PM, [address], [address], [place], [place], [phone], Insurance Providers Payer Name Payer Address Payer Phone Subscriber Number Group Number Insured Name Patient Relationship to Insured Coverage Start Date Coverage End Date MEDICARE NHIC [employer] [address] [place] [address] [id number] Malena Lenz Self - patient is the insured [employer]UE [employer] BLUE [facility] [address] [place], [place] [id number] [phone] [id number] Malena Lenz Self - patient is the insured
--- OUTSIDE RECORDS SUMMARY | 2025-04-23 12:07 | XMS_ITS | Clinical Summary ---
Author Organization [facility] Address [address] [facility] [address] [place] [address] Phone Care Team Providers Care Physical Medicine Specialist Name Role Phone Pilo Nicofaina SAUCEDABS Unavailable [phone] Devin Morgan MD Primary Care Provider Allergies No known active allergies Medications XARELTO 10 mg tablet 3 Active ondansetron (ZOFRAN) 4 MG tablet Take 4 mg by mouth 3 (three) times a day. 3 Active omeprazole (PRILOSEC) 40 MG capsule TAKE ONE CAPSULE BY MOUTH EVERY MORNING ON EMPTY STOMACH AT LEAST 30 MINUTES BEFORE BREAKFAST 3 Active NYAMYC powder APPLY TO AFFECTED AREA S) TWO TIMES A DAY FOR 14 DAYS 3 Active mupirocin (BACTROBAN) 2 % ointment APPLY INSIDE EACH NOSTRIL TWO TIMES A DAY STARTING SUNDAY BEFORE SURGERY 3 Active meloxicam (MOBIC) 7.5 MG tablet 3 Active lisinopril (PRINIVIL,ZESTR IL) 40 MG tablet 1 tablet Orally Once a day for 90 days Active lisinopril (PRINIVIL,ZESTR IL) 10 MG tablet Take 1 tablet by mouth every morning. 3 Active lisinopril (PRINIVIL,ZESTR IL) 40 MG tablet Take 1 tablet by mouth every morning. 3 Active levoFLOXacin (LEVAQUIN) 250 MG tablet TAKE ONE TABLET BY MOUTH EVERY DAY FOR 5 DAYS 3 Active estradioL (ESTRACE) 0.01 % (0.1 mg/gram) vaginal cream Place 2 g vaginally. Active estradioL (ESTRACE) 0.01 % (0.1 mg/gram) vaginal cream USE VAGINALLY ONCE A DAY DIRECTED FOR 90 DAYS 3 Active econazole nitrate 1 % cream APPLY TO AFFECTED AREA S) ONCE DAILY FOR 7 DAYS 3 Active ciprofloxacin HCl (CIPRO) 500 MG tablet TAKE ONE TABLET BY MOUTH TWO TIMES A DAY FOR 7 DAYS 3 Active calcitonin, salmon, (MIACALCIN) 200 unit/actuation nasal spray 1 spray by Nasal route. Active GEMTESA 75 mg tablet Take 1 tablet by mouth every morning. 4 Active Active Problems Patient Care Coordination No te Formatting of this note migh t be different from the original. Height 160.5cm 09/12 Problem Noted Date Diagnosed Date Malignant neoplasm of hepatic flexure 06/13/2023 Cancer Staging:Pathologic stage from 11/28/2019: pT4, pN0, cM0 - Signed by Danny Daigle MBBS on 06/13/2023 Assessment & Plan (09/28/2024 3:17 PM EST): IMPRESSION: This is an 89-year-old woman who is almost 5 years out from the diagnosis of stage II (T4,N0,M0) hepatic flexure colon cancer, patient is status post right hemicolectomy. She did not receive any adjuvant chemotherapy. Incidental finding of liver hypodensities, stable, small likely benign. This has been there in the previous scans. DISCUSSION: I discussed overall impression, natural history of the disease, prognosis and further management in this regard. Patient did have some high risk features on the pathology. She was not a candidate for any adjuvant therapy. Stage II colon cancer has over 80% cure rates. I discussed surveillance as per NCCN guidelines. 08/27/2023: CT scans of the chest abdomen and pelvis did not show any evidence of cancer recurrence 09/12/2024: CT scans of the abdomen and pelvis did not show any evidence of cancer recurrence and I reassured her about this. She has been doing very well from a oncological standpoint without any evidence of cancer recurrence and I reassured her about this. She is almost 5 years out from the diagnosis of colon cancer. I do not think that any further oncology follow-up is necessary at this time in this regard. RECOMMENDATIONS: Follow-up with medical oncology on as-needed basis Thank you very much for allowing me to participate in her care Assessment & Plan (03/16/2024 1:00 PM EDT): IMPRESSION: This is an 87-year-old woman who is 3 years and 9 months out from the diagnosis of stage II (T4,N0,M0) hepatic flexure colon cancer, patient is status post right hemicolectomy. She did not receive any adjuvant chemotherapy. Incidental finding of liver hypodensities, stable, small likely benign. This has been there in the previous scans. DISCUSSION: I discussed overall impression, natural history of the disease, prognosis and further management in this regard. Patient did have some high risk features on the pathology. She was not a candidate for any adjuvant therapy. Stage II colon cancer has over 80% cure rates. I discussed surveillance as per NCCN guidelines. She will undergo physical exam and labs every [address] scans on a yearly basis for a total of 5 years. I have reviewed all her records from prior oncologist office. 08/27/2023: CT scans of the chest abdomen and pelvis did not show any evidence of cancer recurrence and I reassured her about this. She has been doing very well from a oncological standpoint without any evidence of cancer recurrence and I reassured her about this. RECOMMENDATIONS: CT scans of the chest abdominal pelvis with p.o. and IV contrast in August of next year Return for follow-up in 6 months with labs Thank you very much for allowing me to participate in her care Assessment & Plan (09/12/2023 3:28 PM EST): IMPRESSION: This is an 87-year-old woman who is 3 years and 9 months out from the diagnosis of stage II (T4,N0,M0) hepatic flexure colon cancer, patient is status post right hemicolectomy. She did not receive any adjuvant chemotherapy. Incidental finding of liver hypodensities, stable, small likely benign. This has been there in the previous scans. DISCUSSION: I discussed overall impression, natural history of the disease, prognosis and further management in this regard. Patient did have some high risk features on the pathology. She was not a candidate for any adjuvant therapy. Stage II colon cancer has over 80% cure rates. I discussed surveillance as per NCCN guidelines. She will undergo physical exam and labs every [address] scans on a yearly basis for a total of 5 years. I have reviewed all her records from prior oncologist office. 08/27/2023: CT scans of the chest abdomen and pelvis did not show any evidence of cancer recurrence and I reassured her about this. She has been doing very well from a oncological standpoint without any evidence of cancer recurrence and I reassured her about this. RECOMMENDATIONS: CT scans of the chest abdominal pelvis with p.o. and IV contrast in August of next year Return for follow-up in 6 months with labs Thank you very much for allowing me to participate in her care Assessment & Plan (06/13/2023 1:53 PM EDT): IMPRESSION: This is an 87-year-old woman who is 3 years and 6 months out from the diagnosis of stage II (T4,N0,M0) hepatic flexure colon cancer, patient is status post right hemicolectomy. She did not receive any adjuvant chemotherapy. DISCUSSION: I discussed overall impression, natural history of the disease, prognosis and further management in this regard. Patient did have some high risk features on the pathology. She was not a candidate for any adjuvant therapy. Stage II colon cancer has over 80% cure rates. I discussed surveillance as per NCCN guidelines. She will undergo physical exam and labs every [address] scans on a yearly basis for a total of 5 years. I have reviewed all her records from prior oncologist office. She has been doing very well from a oncological standpoint without any evidence of cancer recurrence and I reassured her about this. RECOMMENDATIONS: Labs today CT scans of the chest abdominal pelvis with p.o. 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 Not on talat e 05/24/2023 Are you concerned about learning? Not on file 05/24/2023 No 05/24/2023 No 05/24/2023 Digital Access Answer Date Recorded No 05/24/2023 No 05/24/2023 Reliable internet access at home? Not on file 05/24/2023 Device with a working camera? Not on file Comments Unknown Sex and Gender Information Value Date Recorded Sex Assigned at Not on file Legal Sex Female 4:10 PM EDT Gender Identity Not on file Sexual Orientation Not on file Last Filed Vital Signs Vital Sign Reading Time Taken Comments Blood Pressure 128/76 03/17/2024 2:06 PM EDT Pulse 83 03/17/2024 2:06 PM EDT Temperature 36.6 C (97.8 F) 03/17/2024 2:06 PM EDT Respiratory Rate - - Oxygen Saturation 98% 03/17/2024 2:06 PM EDT Inhaled Oxygen Concentration - - Weight 76 kg (167 lb 9.6 oz) 03/17/2024 2:06 PM EDT Height 160.5 cm (5' 3.19 ) 03/17/2024 2:06 PM ED T Body Mass Index 29.51 03/17/2024 2:06 PM EDT Plan of Treatment Health Maintenance Due Date Last Done Comments Adult Td,Tdap Booster 1935 DEPRESSION SCREENING 1948 PNEUMOCOCCAL VACCINES (50+ years) (1 of 2 - PCV) 1955 ZOSTER VACCINES (1 of 2) 1955 OSTEOPOROSIS SCREENING INITI AL (ONE-TIME) 2001 RSV VACCINE (1 - 1-dose 75+ series) 2011 COVID-19 VACCINE ( - 2023-2 5 season) 2024 POTASSIUM LEVEL 03/17/2025 03/17/2024 INFLUENZA VACCINE (#1) 2025 CREATININE LEVEL 09/12/2025 09/12/2024, 03/17/2024, 06/13/2023 HEPATITIS A VACCINES Aged Out No long er eligible based on patient's age to complete this topic HIB VACCINES Aged Out No longer eligi ble based on patient's age to complete this topic MENINGOCOCCAL VACCINES (ACWY) Aged Out No longer eligible based on patient's age to complete this topic MENINGOCOCCAL VACCINES (B) Aged Out N o longer eligible based on patient's age to complete this topic Medical Devices Not on file Procedures Procedure Name Priority Date/Time Associated Diagnosis Comments CREATININE/EGFR Routine 09/12/2024 1:19 PM EST Malignant neoplasm of hepatic flexure COMPREHENSIVE METABOLIC PANEL STAT 03/17/2024 1:30 PM EDT Malignant neoplasm of hepatic flexure from Last 3 Months or Most Recently Relevant to Health Maintenance Results * Creatinine/eGFR (09/12/2024 1:19 PM EST) CREATININE 0.50 0.5 - 1.5 mg/dL [facility] EGFR 90 >59 mL/min/1.7 3m2 [facility] Comment:Estimated glomerular filtration rate calculated using the CKD-EPI refit equation. Blood 09/12/2024 1:19 PM EST 09/12/2024 1:25 PM EST us Danny HENRY LAB BLOOD ORDERABLES Final Result [facility] [address] [place] [address] * Comprehensive metabolic panel (03/17/2024 1:30 PM EDT) SODIUM 135 133 - 146 mmol/L [facility] POTASSIUM 4.5 3.3 - 5.1 mmol/L [facility] CHLORIDE 99 96 - 108 mmol/L [facility] CO2 25 21 - 35 mmol/L [facility] BUN 15 6 - 19 mg/dL [facility] CREATININE 0.50 0.5 - 1.5 mg/dL [facility] GLUCOSE 91 70 - 99 mg/dL [facility] ALBUMIN 4.0 3.9 - 4.8 g/dL [facility] TOTAL PROTEIN 6.8 6.5 - 8.0 g/dL [facility] CALCIUM 9.0 8.4 - 10.3 mg/dL [facility] ALKALINE PHOSPHATASE 61 39 - 117 U/L [facility] TOTAL BILIRUBIN 0.3 0.0 - 1.2 mg/dL [facility] AST 15 0 - 37 U/L [facility] ALT 11 0 - 40 U/L [facility] GLOBULIN 2.8 1 - 4.8 g/dL [facility] EGFR 91 >59 mL/min/1.7 3m2 [facility] Comment:Estimated glomerular filtration rate calculated using the CKD-EPI refit equation. ANION GAP 16 10 - 20 mmol/L [facility] Blood 03/17/2024 1:30 PM EDT 03/17/2024 1:36 PM EDT us Danny HENRY LAB BLOOD ORDERABLES Final Result Performing Organization Address City/State/[facility] Co de Phone Number [facility] [address] [place] [address] from Last 3 Months or Most Recently Relevant to Health Maintenance Insurance MEDICARE PART A & B [facility] MEDICARE PART A & B [facility] [address] [place] [id number] MEDICARE PART A & B [facility] MEDICARE PART A & B MEDICARE PART A & [place] [address] [place] [address] MEDICARE PART A & B [facility] MEDICARE PART A & B [facility] MEDICARE PART A & B [facility] MEDICARE PART A & B [employer] Care Teams Physical Medicine Specialist Relationship Specialty Start Date End Date Devin Morgan MD [address] [place] [address] [place] [address] PCP - General Internal Medicine 06/13/23 Danny Daigle MBBS [email or web address] Medical Oncology 05/24/23 Additional Source Comments The information contained in this document represents components of the legal health record. It is not the complete legal health record.[facility]
--- OUTSIDE RECORDS SUMMARY | 2025-04-23 12:07 | XMS_ITS | Encounter Summary ---
Author Organization [facility] Address [address] [facility] [address] [place] [address] Phone Care Team Providers Care Stitcher Set Up Operator Automatic Name Role Phone Danny Daigle Unavailable [phone] Devin Morgan MD Primary Care Provider Encounter Details Date Type Department Care Team (Late st Contact Info) Description 03/17/2024 Procedure Pass [facility], Ct Scan - [address] [id number] Social History Tobacco Use Types Packs/Day Years [...] on file Sexual Orientation Not on file documented as of this encounter Plan of Treatment Not on file documented as of this encounter Visit Diagnoses Not on filedocumented in this encounter Care Teams Stitcher Set Up Operator Automatic Relationship Specialty Start Date End Date Devin Morgan MD [address] [place] [address] [place] [address] PCP - General Internal Medicine 06/13/23 Danny Daigle MBBS [phone] (work) [email or web address] Medical Oncology 05/24/23 documented as of this encounter Additional Source Comments The information contained in this document represents components of the legal health record. It is not the complete legal health record.[facility]
--- OUTSIDE RECORDS SUMMARY | 2025-04-23 12:08 | XMS_ITS | Patient Health Record ---
Author Organization [facility] Address [address] [place] [address] Care Team Providers Care Sewer Line Photo Inspector Name Role Phone Devin Morgan MD Primary Care Provider Glenroy oCrbin Jr Unavailable [phone] Allergies Allergen (clinical drug ingredient) Drug/Non Drug Allergy documented on EMR Reaction Allergy Type Onset Date Status Keflex Unknown Drug Allergy Active Erythrocin Unknown Drug Allergy Active sulfamethoxazole / trimethoprim Bactrim Unknown Drug Allergy Active clynamyacin (uncoded) Unknown Allergy Active Substance with 3-sbsvimi-9-methylglutary l-coenzyme A reductase inhibitor mechanism of action (substance) Statins Unknown Drug Allergy Active Reason For Referral No Information Medications Medication SIG (Take, Route, Frequency, Duration) [...] a day for 10 day(s) 07/23/2024 Active Immunizations Vaccine Route Administration Date Status Comme nts Influenza Unknown 07/01/2024 Administered Social History Tobacco Use: Social History Observation Description Date Details (start date - stop date) Never Smoker NA - NA Tobacco Use/Smoking Question Answer Notes Patient is a nonsmoker Alcohol Screen Question Answer Notes Did you have a drink containing alcohol in the p ast year? No Points 0 Interpretation Negative Problems Problem Type SNOMED Code ICD Code Onset Dates Problem Status W/U Status Risk Notes Problem 555355565 Generalized abdominal pain (R10.84) Active confirmed Problem [id number] Malignant neopla sm of colon, unspecified part of colon (C18.9) Active confirmed Problem [id number] Gastroesophageal reflux disease, unspecified whether esophagitis present (K21.9) Active confirmed Vital Signs Temperature 96.0 degrees Fahrenheit 07/23/2024 Blood pressure diastolic 00 mm Hg 07/23/2024 Height 5 ft 3.5 in in 07/23/2024 Blood pressure systolic 000 mm Hg 07/23/2024 Weight 161 lbs 07/23/2024 BMI 28.07 kg/m2 07/23/2024 Encounters Encounter Location Date Provider Diagnosis [facility] [address] [place] [address] 07/23/2024 Glenroy Velarde Jr Generalized abdominal pain R10.84 ; Gastroesophageal reflux disease, unspecified whether esophagitis present K21.9 and Malignant neoplasm of colon, unspecified part of colon C18.9 Assessments Encounter Date Diagnosis (ICD Code) Assessment Notes Treatment Notes Treatment Clinical Notes Section Notes 07/23/2024 Generalized abdominal pain (ICD-10 - R10.84) Irritable bowel syndrome material was printed We discussed her symptoms today. Reflux symptoms are under good control and she will continue omeprazole. We discussed diet, lifestyle modifications, and weight management. Her generalized abdominal discomfort symptoms seem to be related to IBS. We prescribed dicyclomine 10 mg to 4 times daily. We will review her records on her previous colon resection. We discussed that further screening colonoscopies are optional based on age. Followup will be after her records arrive. 07/23/2024 Gastroesophageal reflux disease, unspecified whether esophagitis present (ICD-10 - K21.9) We discussed her symptoms today. Reflux symptoms are under good control and she will continue omeprazole. We discussed diet, lifestyle modifications, and weight management. Her generalized abdominal discomfort symptoms seem to be related to IBS. We prescribed dicyclomine 10 mg to 4 times daily. We will review her records on her previous colon resection. We discussed that further screening colonoscopies are optional based on age. Followup will be after her records arrive. 07/23/2024 Malignant neoplasm of colon, unspecified part of colon (ICD-10 - C18.9) We discussed her symptoms today. Reflux symptoms are under good control and she will continue omeprazole. We discussed diet, lifestyle modifications, and weight management. Her generalized abdominal discomfort symptoms seem to be related to IBS. We prescribed dicyclomine 10 mg to 4 times daily. We will review her records on her previous colon resection. We discussed that further screening colonoscopies are optional based on age. Followup will be after her records arrive. Plan Of Treatment No Information Insurance Providers Payer Name Payer Address Payer Phone Subscriber Number Group Number Insured Name Patient Relationship to Insured Coverage Start Date Coverage End Date MEDICARE OF [place] [address] [place] [address] [id number] ALENA FAIRBANKSSCILLA Self - patient is the insured [facility] [address] [place] [address] [id number] NIXON FAIRBANKS Self - patient is the insured Medical (General) History Medical History History ICD Code Hypertension Hyperlipidemia Colon cancer status post resection Gastroesophageal reflux disease Surgical History Surgery Date(Month/Year) Left carotid tumor, surgery and radiatio n therapy right breast removed knee surgery right Colon resection
== END 2025-04-23 10:37 | disposition home or self-care (01) ==
LOC: HO.LNP 10:36
PROVIDERS: Visit Provider Internal Medicine
DX: I10 Essential (primary) hypertension (principal)
CPT/HCPCS: 80053; 80061; 81001; 85025; 87086; 87088; 87186

== ENCOUNTER 2025-05-04 15:44 | Outpatient (REF) | payer MEDICARE, BC, SELFPAY ==
--- OUTSIDE RECORDS SUMMARY | 2025-04-23 04:30 | XMS_ITS ---
Author Organization Devin Morgan MD Address [address] [place], [place] [phone] Care Team Providers Care Camp Counselor Name Role Phone Devin Morgan Primary Care Provider [phone] Results Component Value Reference Range Notes Complete Blood Count Auto Di ff Reviewed date:04/23/2025 04:51:51 PM Interpretation: Performing Lab:[facility], [address] [place] [phone] Notes/Report: White Blood Count 5.5 4.8-10.8 X10*3/uL [...] Abs Auto 0.000 0.0-0.012 X10*3/uL Lipid Panel Reviewed date:04/23/2025 12:36:01 PM Interpretation: Performing Lab:[facility], [address] [place] [phone] Notes/Report: Triglycerides 96 <150 mg/dL Desirable Triglyceride: [...] disease. UA ClnCatch+Micro w/rflx Cul t Reviewed date:04/27/2025 02:08:25 PM Interpretation:04-27-2025 Performing Lab:[address] [phone] Notes/Report: Urine, Clean Catch Color Urine Yellow Appearance Urine Clear PH 8.0 5.0-9.0 Glucose Urine UA Negative Negative mg/dL Urine Blood Trace Negative Specific [place] - Urine 1.010 1.005-1.025 Urine Protein 30 [...] Location Date Provider Diagnosis Devin Morgan MD [address] [place] [phone] 04/23/2025 Devin Morgan Essential hypertension I10 Assessments Encounter Date Diagnosis (ICD Code) Assessment Notes Treatment Notes Treatment Clinical Notes Section Notes 04/23/2025 Essential hypertension (ICD-10 - I10) Plan Of Treatment Pending Test Test Name Order Date Comprehensive [place]. Panel Fast Next Appt Details Provider Name:Devin wilson, 05/08/2025 10:30:00 AM, [address] [place] [address], [phone], Provider Name:Devin wilson, 05/18/2025 08:30:00 AM, [address] [place] [address], [phone], Provider Name:Devin wilson, 07/28/2025 01:30:00 PM, [address] [place] [address], [phone], Provider Name:Deivn wilson, 04/23/2026 07:00:00 AM, [address] [place] [address], [phone], Provider Name:Devin wilson, 04/30/2026 01:00:00 PM, [address] [place] [address], [phone], Progress Notes * Malena LENZ MDOB:1934 (89 yo F)Acc No.[id number]:04/23/2025 Progress Note Patient: Malena EDWARDS Provider: Autumn Morgan MD :1935 A ge:89 Y S ex:Female Date:04/23/2025 Address:[address] [place] [address], [place] [id number] Subjective: * Chief Complaints: * 1 . [...] Pending * Provider: Autumn Morgan MD Date: 0 04/23/2025 Generated for Lesa oconnell/Mable/Yashitting on: 0 05/04/2025 09:04 PM EDT
--- OUTSIDE RECORDS SUMMARY | 2025-04-25 11:47 | XMS_ITS ---
Author Organization Devin Morgan MD Address [address] [facility] [address] [place] [phone] Care Team Providers Care Instrument Engineer Name Role Phone Devin Morgan Primary Care Provider [phone] Medications Medication SIG (Take, Route, Frequency, Duration) Notes Start Date End Date Status Cipro 250 MG 1 tablet Orally ever y 12 hrs for 3 day(s) 04/25/2025 Active Encounters Encounter Location Date Provider Diagnosis Devin Morgan MD [address] [facility] [address] [place] [phone] 04/25/2025 Devin Morgan Plan Of Treatment Medication Medication Name Sig Start Date Stop Date Notes Cipro 250 MG 1 tablet Orally every 12 hrs for 3 day(s) 01/2025 Next Appt Details Provider Name:Devin wilson, 05/08/2025 10:30:00 AM, [address] [place] [address], [address], [phone], Provider Name:Devin wilosn, 05/18/2025 08:30:00 AM, [address] [place] [address], [address], [phone], Provider Name:Devin wilson, 07/28/2025 01:30:00 PM, [address] [place] [address], [address], [phone], Provider Name:Devin wilson, 04/23/2026 07:00:00 AM, [address] [place] [address], [address] [place], [phone], Provider Name:Devin Malone ier, 04/30/2026 01:00:00 PM, [address] [facility], [address], [place], [phone], Progress Notes * Malena LENZ MDOB:1934 (89 yo F)Acc No.[id number]:04/25/2025 Patient: Malena EDWARDS :1935 A ge:89 Y S ex:Female Address:[address] [place] [address], [place], [address] * Refills Start Cipro Tablet, 250 MG, Orally, 6, 1 tablet, every 12 hrs, 3 day(s) * true * Date: Generated for Lesa oconnell/Mable/Yashitting on: 0 05/04/2025 09:03 PM EDT
--- OUTSIDE RECORDS SUMMARY | 2025-04-27 10:30 | XMS_ITS ---
Author Organization Devin Morgan MD Address [address] [place], [place] [id number] Care Team Providers Care Horses Or Mules Teamster Name Role Phone Devin Morgan Primary Care Provider [phone] Allergies Allergen (clinical drug ingredient) Drug/Non Drug Allergy documented on EMR Reaction Allergy Type Onset Date Status Keflex Unknown Drug Allergy Active erythromycin Erythromycin Unknown Drug Allergy A ctive sulfamethoxazole / trimethoprim Bactrim DS Unknown Drug Allergy Active 12 Hour Nasal [place] Unknown Drug Allergy Active clindamycin Clindamycin Unknown Drug Allergy Act tommy atorvastatin Atorvastatin fatigue Drug Allergy A ctive REASON FOR VISIT review labs/ repeat urine, Antibiotic was sent in for UTI Patient notified, Accompanied by family have concerns regarding her memory Medications Medication SIG (Take, Route, Frequency, Duration) Notes Start Date End Date Status Donepezil HCl 5 MG 1 tablet at bedtime Orally Once a day for 30 days 04/27/2025 Active Dicyclomine HCl 10 MG 2 capsules Orally Three times a day Not-Taking Lisinopril-hydroCHLOROth iazide 20-12.5 MG TAKE ONE TABLET BY MOUTH EVERY DAY Active Econazole Nitrate 1 % 1 application Exte rnally Once a day for 7 day(s) 04/30/2023 Not-Taki ng Cipro 250 MG 1 tablet Orally ever y 12 hrs for 3 day(s) 04/25/2025 Active Estrace 0.1 MG/GM as directed Vaginal Once a day for 90 days Active Omeprazole 40 MG TAKE ONE CAPSULE BY MOUTH EVERY MORNING ON EMPTY STOMACH AT LEAST 30 MINUTES BEFORE BREAKFAST for 90 Active Nystatin 372579 UNIT/GM 1 application Ex ternally Twice a day for 30 days 06/17/2024 Not-Taki ng Social History Tobacco Use: Social History Observation [...] Never (0 point) Points 1 Interpretation Negative Vital Signs Blood pressure systolic 132 mm Hg 04/27/20 25 Blood pressure diastolic 90 mm Hg 025 Height 63.5 in 04/27/2025 Weight 172 lbs 04/27/2025 BMI 29.99 kg/m2 04/27/2025 weight is up 2 pounds since 02-12-25 Encounters Encounter Location Date Provider Diagnosis Devin Morgan MD [address] [place] [address] [place] [phone] 04/27/2025 Devin Morgan Memory loss R41.3 ; UTI (urinary tract infection) N39.0 ; Guaiac positive stools R19.5 and Depression screening Z13.31 Assessments Encounter Date Diagnosis (ICD Code) Assessment Notes Treatment Notes Treatment Clinical Notes Section Notes 04/27/2025 Memory loss (ICD-10 - R41.3) patient/family member verbalized understanding of medication and directions for use 04/27/2025 UTI (urinary tract infection) (ICD-10 - N39.0) was treated and will treated, will continue to monitor 04/27/2025 Guaiac positive stools (ICD-10 - R19.5) chaya send with cards. decide whether to have a colonoscopy. at her age it would be risky so will see if the cards are positive may consider colonoscopy 04/27/2025 Depression screening (ICD-10 - Z13.31) negative screen Plan Of Treatment Medication Medication Name Sig Start Date Stop Date Notes Donepezil HCl 5 MG 1 tablet at bedtime Orally Once a day for 30 days 04/27/2025 Treatment Notes Assessment Notes Memory loss patient/family membe r verbalized understanding of medication and directions for use UTI (urinary tract infection) was treate d and will treated, will continue to monitor Guaiac positive stools wlll send with teodoro marti. decide whether to have a colonoscopy. at her age it would be risky so will see if the cards are positive may consider colonoscopy Depression screening negative screen Future Test Test Name Order Date Urinalysis and Microscopic 05/18/2025 Urine Culture 05/18/2025 Next Appt Details Follow Up: 3 Months, Reason: Provider Name:Devin wilson, 05/08/2025 10:30:00 AM, [address] [place] [address], [address], [phone], Provider Name:Devin wilson, 05/18/2025 08:30:00 AM, [address] [place] [address], [address], [phone], Provider Name:Devin wilson, 07/28/2025 01:30:00 PM, [address] [place] [address], [address], [phone], Provider Name:Devin wilson, 04/23/2026 07:00:00 AM, [address] [place] [address], [address], [phone], Provider Name:Devin wilson, 04/30/2026 01:00:00 PM, [address] [place] [address], [address], [phone], Progress Notes * Malena LENZ MDOB:1934 (89 yo F)Acc No.[id number]:04/27/2025 Patient: Malena EDWARDS Provider: Autumn Morgan MD :1935 A ge:89 Y S ex:Female Date:04/27/2025 Address:[address] [place], [place] [phone] Subjective: * Chief Complaints: * R eview labs/ repeat urineAntibiotic was sent in for UTI Patient notifiedAccompanied by family have concerns regarding her memory * HPI: D epression Screening: PHQ-9 L ittle interest or pleasure in doing things N ot at all, F eeling down, depressed, or hopeless N ot at all, T rouble falling or staying asleep, or sleeping too much N ot at all, F eeling tired or having little energy N ot at all, P oor appetite or overeating N ot at all, F eeling bad about yourself or that you are a failure, or have let yourself or your family down N ot at all, T rouble concentrating on things, such as reading the newspaper or watching television N ot at all, M oving or speaking so slowly that other people could have noticed; or the opposite, being so fidgety or restless that you have been moving around a lot more than usual N ot at all, T houghts that you would be better off or of hurting yourself in some way N ot at all, T otal Score 0 . I nterpretation and Intervention D epression Screening Findings N egative, F ollow-Up for Depression : review of PHQ-9 found negative result, no follow-up needed. C ommunication Needs: Communication Needs D oes the patient have a hearing impairment N o, D oes the patient have a vision impairment? Y es, I f yes, what is the vision impairment? G lasses, D oes the patient have a cognition impairment? N o. F all Risk: History H ave you had any falls with injury in the past year? N o, H ave you had two or more falls in the past year? N o. S LIZ Questions: SDOH Questions I n the past year have you been worried about losing housing? Y es, I n the past year have you or any family members you live with been unable to get any of the following when it was really needed? Check all that apply: N one. 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 * ROS: G eneral/Constitutional: Change in appetite d enies. C hills d enies. F ever d enies. O phthalmologic: Blurred vision d enies. D ischarge d enies. P ain d enies. E NT: Decreased hearing d enies. S ore throat d enies.?Swollen glands d enies. E ndocrine: Cold intolerance d enies. E xcessive thirst d enies. H eat intolerance d enies. W eight loss d enies. R espiratory: Cough d enies. S hortness of breath at rest d enies. S hortness of breath with exertion d enies. W heezing d enies. C ardiovascular: Chest pain at rest d enies. C hest pain with exertion?denies. I rregular heartbeat d enies. S hortness of breath d enies. ? G astrointestinal: Abdominal pain d enies. C hange in bowel habits d enies. D iarrhea d enies. N ausea d enies. R ectal bleeding d enies. V omiting d enies . G enitourinary: Blood in urine d enies. D ifficulty urinating d enies. F requent urination d enies. U rinary incontinence D enies. M usculoskeletal: Painful joints d enies. W eakness d enies. ? S kin: Dry skin d enies. I tching d enies. D enies?Mole(s), changes in moles, new moles or any lesions of concern. D enies P hotosensitivity. R horace d enies. N eurologic: Dizziness d enies. F ainting d enies. H eadache?denies. * Medical History: * Surgical History: * Hospitalization/Major Diagno stic Procedure: * Family History: F ather: 61 yrs. M other: 89 yrs. 1 brother(s) . 4 son(s) , 1 daughter(s) . . father Colon Cancer Mother pneumonia at 103 4 brothers 3 sisters, Denies mental health/substance abuse family history. * Social History: T obacco Use: T obacco Use/Smoking P atient is a n onsmoker, A dditional Findings: Tobacco Non-User C urrent non-smoker, currently using no form of tobacco. D rugs/Alcohol: A lcohol Screen D id you have a drink containing alcohol in the past year? Y es, H ow often did you have a drink containing alcohol in the past year? M onthly or less (1 point), H ow many drinks did you have on a typical day when you were drinking in the past year? 1 or 2 drinks (0 point), H ow often did you have 6 or more drinks on one occasion in the past year? N ever (0 point), P oints 1 , I nterpretation N egative. M iscellaneous: C affeine: yes, frequency:, 1-2 cups per day. Children: yes. Community involvements: no. Exercise: yes, walks around the building. Home smoke detector use: yes. Housing: [facility]. Living with: alone. Occupation: weeks/months/years, unemployed,employed. * Medications: T akingEstrace 0.1 MG/GM Cream as directed Vaginal Once a day Omeprazole 40 MG Capsule Delayed Release TAKE ONE CAPSULE BY MOUTH EVERY MORNING ON EMPTY STOMACH AT LEAST 30 MINUTES BEFORE BREAKFAST Lisinopril-hydroCHLOROthiazide 20-12.5 MG Tablet TAKE ONE TABLET BY MOUTH EVERY DAY Cipro 250 MG Tablet 1 tablet Orally every 12 hrs Taking Estrace 0.1 MG/GM Cream as directed Vaginal Once a day Taking Omeprazole 40 MG Capsule Delayed Release TAKE ONE CAPSULE BY MOUTH EVERY MORNING ON EMPTY STOMACH AT LEAST 30 MINUTES BEFORE BREAKFAST Taking Lisinopril-hydroCHLOROthiazide 20-12.5 MG Tablet TAKE ONE TABLET BY MOUTH EVERY DAY Taking Cipro 250 MG Tablet 1 tablet Orally every 12 hrs Not-Taking/PRNDicyclomine HCl 10 MG Capsule 2 capsules Orally Three times a day Nystatin 047752 UNIT/GM Cream 1 application Externally Twice a day Econazole Nitrate 1 % Cream 1 application Externally Once a day Medication List reviewed and reconciled with the patientNot-Taking/PRN Dicyclomine HCl 10 MG Capsule 2 capsules Orally Three times a day Not-Taking/PRN Nystatin 894037 UNIT/GM Cream 1 application Externally Twice a day Not-Taking/PRN Econazole Nitrate 1 % Cream 1 application Externally Once a day Medication List reviewed and reconciled with the patient * Allergies: A torvastatin: [id number] Hour Nasal SprayKeflexBactrim DSErythromycinClindamycinyes[Allergies Verified] Objective: * Vitals: H t: 63.5, Wt: 172, BMI:29.99, BP:132/90, Wt-k.02. weight is up 2 pounds since 02-12-25. * P ast Orders: L ab:Comprehensive Met. Panel (Order Date - 04/23/2025) (Collection Date & Time - 04/23/2025 08:30 AM) Value Reference Range Sodium 140 135-145 - mmol/L Bilirubin Total 0.7 0.0-1.0 - mg/dL Aspartate Amino Transferase 22 5-31 - U/L Alanine Aminotransferase 13 0-31 - U/L Total Protein 7.1 6.5-8.0 - g/dL Albumin Level 4.3 3.5-5.0 - g/dL Alkaline Phosphatase 63 39-117 - U/L Potassium 3.8 3.3-5.1 - mmol/L Chloride 106 96-108 - mmol/L Carbon Dioxide 24 22-29 - mmol/L Anion Gap 14 12-20 - Blood Urea Nitrogen 13 9-16 - mg/dL Creatinine 0.58 0.5-1.4 - mg/dL Estimated Glomerular Filt Rate > 60 - Glucose Random 94 60-115 - mg/dL Calcium 9.3 8.4-10.2 - mg/dL L ab:Complete Blood Count Auto Diff (Order Date - 04/23/2025) (Collection Date & Time - 04/23/2025 08:30 AM) Value Reference Range White Blood Count 5.5 4.8-10.8 - X10*3/uL Red Blood Count 4.34 4.20-5.50 - X10*6/uL Hemoglobin 13.8 12.0-16.0 - g/dl Hematocrit 38.9 37.0-47.0 - % Mean Corpuscular Volume 89.6 80.0-98.0 - fL Mean Corpuscular Hemoglobin 31.8 27.0-33.0 - pg Mean Corpuscular HGB Conc 35.5 H 31.0-35.0 - g/ dl Red Cell Distribution Width 12.9 11.0-16.0 - % Platelet Count 268 160-400 - X10*3/uL Mean Platelet Volume 10.4 9.4-12.3 - fL Neutrophils Percent Auto 63.0 45-73 - % Imm Gran Pct Auto 0.2 0.0-0.4 - % Lymphocytes Percent Auto 24.9 20-40 - % Monocytes Percent Auto 9.0 2-11 - % Eosinophils Percent Auto 2.0 0-4 - % Basophils Percent Auto 0.9 0-2 - % NRBC Pct Auto 0.0 0.0-0.2 - /100WBC Neutrophils Absolute Auto 3.5 2.0-8.3 - x10* 3/uL Imm Gran Abs Auto 0.01 0.00-0.03 - X10*3/uL Lymphocytes Absolute Auto 1.4 1.2-4.9 - X10* 3/uL Monocytes Absolute Auto 0.5 0.1-1.2 - X10*3/ uL Eosinophils Absolute Auto 0.1 0.0-0.4 - X10* 3/uL Basophils Absolute Auto 0.1 0.0-0.2 - X10*3/ uL NRBC Abs Auto 0.000 0.0-0.012 - X10*3/uL L ab:Lipid Panel (Order Date - 04/23/2025) (Collection Date & Time - 04/23/2025 08:30 AM) Value Reference Range Triglycerides 96 <150 - mg/dL Cholesterol 244 H <200 - mg/dL LDL Cholesterol Calculated 176 H <100 - mg/dL HDL Cholesterol 49 >40 - mg/dL L ab:Urine Culture (Order Date - 04/23/2025) (Collection Date & Time - 04/23/2025) Value Reference Range Urine Culture > 100,000 cfu/mL - Ampicillin 16 R - Ceftriaxone <=0.25 S - Gentamicin <=1 S - Nitrofurantoin 64 I - Trimethoprim/Sulfamethoxazole <=20 S - O:KLEPNE Klebsiella pneumoniae - Cefepime <=0.12 S - Cefazolin 2 S - Ciprofloxacin <=0.06 S - L ab:UA ClnCatch+Micro w/rflx Cult (Order Date - 04/23/2025) (Collection Date & Time - 04/23/2025 08:30 AM) Result: 04-27-2025 Value Reference Range Color Urine Yellow - Appearance Urine Clear - PH 8.0 5.0-9.0 - Glucose Urine UA Negative Negative - mg/dL Urine Blood Trace A Negative - Specific [place] - Urine 1.010 1.005-1.025 - Urine Protein 30 (1+) A Neg-Trace - mg/dL Urine Ketones Negative Negative - mg/dL Nitrite Urine Negative Negative - Leukocyte Esterase Urine Moderate (2+) A Negative - RBC Urine 3-5 A 0-2 - /HPF WBC Urine 21-50 A 0-5 - /HPF Squamous Epithelial Cell Urine 3-5 0-2 - /HP F Bacteria Urine 4+ None Seen - Hyaline Casts Urine 0-2 0-2 - /LPF * Examination: G eneral Examination: GENERAL APPEARANCE: w ell developed, well nourished, in no acute distress. HEAD: n ormocephalic, atraumatic. EYES: p upils equal, round, reactive to light and accommodation, sclera non-icteric. EARS: n ormal. ORAL CAVITY: m ucosa moist. THROAT: c lear. NECK/THYROID: n jay supple, full range of motion, no cervical lymphadenopathy, no bruits. SKIN: w arm and dry, no suspicious lesions. HEART: r egular rate and rhythm, S1, S2 normal, no murmurs.? LUNGS: c lear to auscultation bilaterally. BREASTS: N o mass, no lump. ABDOMEN: s oft, nontender, nondistended, bowel sounds present, normal, no organomegaly , no masses palpable. RECTAL EXAM: n o masses palpable trace positive. FEMALE GENITOURINARY: d one by physician gynecologist. EXTREMITIES: n o clubbing, cyanosis, or edema. NEUROLOGIC: n onfocal, motor strength normal upper and lower extremities, sensory exam intact. Assessment: * Assessment: 1. M gilda loss - R41.3 (Primary) 2 . U TI (urinary tract infection) - N39.0 3 . G uaiac positive stools - R19.5 4 . D epression screening - Z13.31 Plan: * Treatment: 2. U TI (urinary tract infection) Notes: was treated and will treated, will continue to monitor 3. G uaiac positive stools Notes: wlll send with cards. decide whether to have a colonoscopy. at her age it would be risky so will see if the cards are positive may consider colonoscopy 4. 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 Depression Screening PHQ-9 Little inte rest or pleasure in doing things: Not at all Feeling down, depressed, or hopeless: No t at all Trouble falling or staying asleep, or sl eeping too much: Not at all Feeling tired or having little energy: N ot at all Poor appetite or overeating: Not at all Feeling bad about yourself o r that you are a failure, or have let yourself or your family down: Not at all Trouble concentrating on thi ngs, such as reading the newspaper or watching television: Not at all Moving or speaking so slowly that other people could have noticed; or the opposite, being so fidgety or restless that you have been moving around a lot more than usual: Not at all Thoughts that you would be b dedrick off or of hurting yourself in some way: Not at all Total Score: 0 Interpretation and Intervention Depression Geovanna mariano Findings: Negative Follow-Up for Depression: : review of PH Q-9 found negative result, no follow-up needed SDOH Questions SDOH Questions In the past year have you been worried about losing housing?: Yes In the past year have you or any family members you live with been unable to get any of the following when it was really needed? Check all that apply:: None Fall Risk History Have you had any falls with injury i n the past year?: No Have you had two or more falls in the year?: No Communication Needs Communication Needs Does the patient have a hearing impairment: No Does the patient have a vision impairmen t?: Yes If yes, what is the vision impairment?: Glasses Does the patient have a cognition impair ment?: No Examination Category Sub-Category Detail Notes Category Not es General Examination GENERAL APPEARANCE: well dev eloped, well nourished, in no acute distress HEAD: normocephalic, atrau matic EYES: pupils equal, round, reactive to light and accommodation, sclera non-icteric EARS: normal THROAT: clear NECK/THYROID: neck supple, full ra nge of motion, no cervical lymphadenopathy, no bruits HEART: regular rate and rhy thm, S1, S2 normal, no murmurs LUNGS: clear to auscultatio n bilaterally ABDOMEN: soft, nontender, non distended, bowel sounds present, normal, no organomegaly , no masses palpable NEUROLOGIC: nonfocal, motor stre ngth normal upper and lower extremities, sensory exam intact SKIN: warm and dry, no sangeeta picious lesions EXTREMITIES: no clubbing, cyanosi s, or edema BREASTS: No mass, no lump RECTAL EXAM: no masses palpable t race positive FEMALE GENITOURINARY: done by physician gynecologist ORAL CAVITY: mucosa moist
--- OUTSIDE RECORDS SUMMARY | 2025-04-27 11:37 | XMS_ITS ---
Author Organization Devin Morgan MD Address [address] [facility] [address] [place] [phone] Care Team Providers Care Commercial Housekeeper Name Role Phone Devin Morgan Primary Care Provider [phone] REASON FOR VISIT colon cancer Encounters Encounter Location Date Provider Diagnosis Devin Morgan MD [address] [place] [address] [place] [phone] 04/27/2025 Devin Morgan Plan Of Treatment Next Appt Details Provider Name:Devin wilson, 05/08/2025 10:30:00 AM, [address] [place] [address], [address], [phone], Provider Name:Devin wilson, 05/18/2025 08:30:00 AM, [address] [place] [address], [phone], Provider Name:Devin wilson, 07/28/2025 01:30:00 PM, [address] [place] [address], [address], [phone], Provider Name:Devin wilson, 04/23/2026 07:00:00 AM, [address] [place] [address], [phone], Provider Name:Devin wilson, 04/30/2026 01:00:00 PM, [address] [place] [address], [phone], Progress Notes * Malena LENZ MDOB:1934 (89 yo F)Acc No.[id number]:04/27/2025 Patient: Jannet WEBER Malena Shani :1935 A ge:89 Y S ex:Female Address:[address] [place] [address], [place] [address] * true * Date: Generated for Lesa oconnell/Mable/Sanjeevsmitting on: 0 05/04/2025 09:03 PM EDT
--- OUTSIDE RECORDS SUMMARY | 2025-05-04 10:15 | XMS_ITS ---
Author Organization Devin Morgan MD Address [address] [place], [place] [id number] Care Team Providers Care Car Jockey Name Role Phone Devin Morgan Primary Care Provider Allergies Allergen (clinical drug ingredient) Drug/Non Drug Allergy documented on EMR Reaction Allergy Type Onset Date Status Keflex Unknown Drug Allergy Active erythromycin Erythromycin Unknown Drug Allergy A ctive sulfamethoxazole / trimethoprim Bactrim DS Unknown Drug Allergy Active 12 Hour Nasal [place] Unknown Drug Allergy Active clindamycin Clindamycin Unknown Drug Allergy Act tommy atorvastatin Atorvastatin fatigue Drug Allergy A ctive Results Component Value Reference Range Notes Erythrocyte Sedimentation Ra te (Not yet reviewed by provider) Interpretation: Performing Lab:[facility], [address] [place] [phone] Notes/Report: Erythrocyte Sedimentation Rate 36 0-20 MM/HR [...] MINUTES BEFORE BREAKFAST for 90 Active Nystatin 826598 UNIT/GM 1 application Ex ternally Twice a [...] Date Provider Diagnosis Devin Morgan MD [address] [place] [address] [place] [phone] 05/04/2025 Devin Morgan Confusion R41.0 and Headache, [...] CRP 05/04/2025 CT BRAIN W&WO CONTRAST 05/04/2025 Erythrocyte Sedimentation Rate Next Appt Details Follow Up: sunday, Reason: Provider Name:Devin wilson, 05/08/2025 10:30:00 AM, [address] [place] [address], Suite [facility], [place], [place], [phone], Provider Name:Devin wilson, 05/18/2025 08:30:00 AM, [address] [place] [address], [address] [place] [address], [phone], Provider Name:Devin wilson, 07/28/2025 01:30:00 PM, [address] [place] [address], [address], [place], [place], [phone], Provider Name:Devin Malone ier, 04/23/2026 07:00:00 AM, [address] [facility], [address], [place], [place], [phone], Provider Name:Devin Malone ier, 04/30/2026 01:00:00 PM, [address] [facility], Suite [facility], [place], [place], [phone], Progress Notes * Malena LENZ MDOB:1934 (89 yo F)Acc No.[id number]:05/04/2025 Progress Notes Patient: Malena EDWARDS Provider: Autumn Morgan MD :1935 A ge:89 Y S ex:Female Date:05/04/2025 Address:[address] [place], [place] [phone] Subjective: * Chief Complaints: * 1 . NOT FEELING WELL Head is Buzzing . 2. Patiet does not remember being here last week. * HPI: S ymptom(s): pt is a [...] D enies N ausea. * Medical History: M edical History Verified. * Medications: T aking Estrace 0.1 MG/GM Cream as directed Vaginal Once a day , Taking Omeprazole 40 MG Capsule Delayed Release TAKE ONE CAPSULE BY MOUTH EVERY MORNING ON EMPTY STOMACH AT LEAST 30 MINUTES BEFORE BREAKFAST , Taking Lisinopril-hydroCHLOROthiazide 20- 12.5 MG Tablet TAKE ONE TABLET BY MOUTH EVERY DAY , Taking Cipro 250 MG Tablet 1 tablet Orally every 12 hrs , Taking Donepezil HCl 5 MG Tablet 1 tablet at bedtime Orally Once a day , Not-Taking/PRN Dicyclomine HCl 10 MG Capsule 2 capsules Orally Three times a day , Not-Taking/PRN Nystatin 034694 UNIT/GM Cream 1 application Externally Twice a day , Not-Taking/PRN Econazole Nitrate 1 % Cream 1 application Externally Once a day * Allergies: A torvastatin: fatigue, 12 Hour Nasal [place], Keflex, Bactrim DS, Erythromycin, Clindamycin. Objective: * Vitals: H t: 63.5, Wt: [...] 3 6415 VENIPUNCT, ROUTINE* * Follow Up: f riday * * The named appointment provid er may or may not be the originator of this progress note, and it is not deemed complete until electronically signed by the appointment provider. Sign off status: Pending * Provider: Autumn Morgan MD Date: 0 05/04/2025 Generated for Lesa oconnell/Mable/Jack on: 0 05/04/2025 09:04 PM EDT History and Physical Notes * [...]
--- OUTSIDE RECORDS SUMMARY | 2025-05-04 21:04 | XMS_ITS | Patient Health Record ---
Author Organization Devin Morgan MD Address [address] [place], [place] [id number] Care Team Providers Care Steel Inspector Name Role Phone Devin Morgan Primary Care Provider [phone] Allergies Allergen (clinical drug ingredient) Drug/Non Drug Allergy documented on EMR Reaction Allergy Type Onset Date Status Keflex Unknown Drug Allergy Active erythromycin Erythromycin Unknown Drug Allergy A ctive sulfamethoxazole / trimethoprim Bactrim DS Unknown Drug Allergy Active 12 Hour Nasal [place] Unknown Drug Allergy Active clindamycin Clindamycin Unknown Drug Allergy Act tommy atorvastatin Atorvastatin fatigue Drug Allergy A ctive Results Component Value Reference Range Notes MM tomosynthesis screening L T Reviewed date:08/08/2024 04:39:06 PM Interpretation: Performing Lab: Notes/Report: [facility] [address] [place] [address] Mammography Report Signed with Espinoza Patient: Malena Lenz MR#: [id number] : 1935 Acct:[id number] Age/Sex: 89 / F ADM Date: 07/30/24 Loc: HO.MAMMO Attending Dr: Devin Morgan MD Ordering Physician: Devin Morgan MD Results: 2Be nign Findings Date of Service: 07/30/24 Follow Up: 1 Year From Orig inal Mammogram Procedure(s): MM tomosynthesis screening LT Accession Number(s): [id number] cc: Devin Morgan MD ADDENDUM ADDENDUM #1 [...] OV> 08/06/24 1027 DD/ 29 TD/TT: 07/30/241452 Optical Lathe Operator: [facility] [address] [place] [address] [place] [address] Mammography Report Signed with Addenda Patient: Malena Lenz MR#: [id number] : 1935 Acct:[id number] Age/Sex: 89 / F ADM Date: 07/30/24 Loc: HO.MAMMO Attending Dr: Devin Morgan MD Ordering Physician: Devin Morgan MD Results: 2Be nign Findings Date of Service: 07/30/24 Follow Up: 1 Year From Orig ina Mammogram Procedure(s): MM tomosynthesis screening LT Accession Number(s): [id number] cc: Devin Morgan MD ADDENDUM ADDENDUM #1 [...] by: Christy Patterson DO 08/06/2024 10:27 AM [facility] [place] Dictated By: Christy Patterson DO Signed By: <Electronically signed by Christy Patterson DO in OV> 08/06/24 1027 DD/ 1430 TD/TT: 07/30/24 1453 Optical Lathe Operator: Kaci Escoto Reviewed date:11/08/2024 06:19:50 PM Interpretation: Performing Lab:[facility], [address] [place] [phone] Notes/Report: Kaci Escoto See Note Specimen held untested for 24 hours; Call to request Chemistry testing. Complete Blood Count Auto Di ff Reviewed date:11/10/2024 12:54:37 PM Interpretation: Performing Lab:[facility], [address] [place] [phone] Notes/Report: White Blood Count 5.3 4.8-10.8 X10*3/uL [...] te Reviewed date:11/08/2024 06:15:33 PM Interpretation: Performing Lab:[facility], [address] [place] [phone] Notes/Report: Erythrocyte Sedimentation Rate 36 0-20 MM/HR Patients with polycythemia and many hemoglobin abnormalities may have depressed sed rates whereas patients with anemia may have elevated sed rates. Comprehensive [place]. Panel Fa Reviewed date:11/10/2024 05:20:05 PM Interpretation: Performing Lab:[facility], [address] [place] [phone] Notes/Report: Sodium 137 135-145 mmol/L Potassium 3.7 [...] T4 Reviewed date:11/08/2024 06:15:41 PM Interpretation: Performing Lab:[facility], [address] [place] [phone] Notes/Report: TSH reflex Free T4 0.96 0.32-4.0 uIU/mL Comprehensive Met. Panel Reviewed date:04/23/2025 05:00:49 PM Interpretation: Performing Lab:[address] [phone] Notes/Report: Sodium 140 135-145 mmol/L Potassium 3.8 [...] 3.5-5.0 g/dL Alkaline Phosphatase 63 39-117 U/L Urine Culture Reviewed date:04/25/2025 03:48:49 PM Interpretation: Performing Lab:[address] [phone] Notes/Report: O:KLEPNE Klebsiella pneumoniae Urine Culture Quant Urine Culture > 100,000 cfu/mL Ampicillin 16 Cefazolin 2 Cefepime <=0.12 Ceftriaxone <=0.25 Ciprofloxacin <=0.06 Gentamicin <=1 Nitrofurantoin 64 Trimethoprim/Sulfamethoxa zole <=20 Complete Blood Count Auto Di ff Reviewed date:04/23/2025 04:51:51 PM Interpretation: Performing Lab:[address] [phone] Notes/Report: White Blood Count 5.5 4.8-10.8 X10*3/uL [...] Panel Reviewed date:04/23/2025 12:36:01 PM Interpretation: Performing Lab:[facility], [address] [place] [phone] Notes/Report: Triglycerides 96 <150 mg/dL Desirable Triglyceride: [...] t Reviewed date:04/27/2025 02:08:25 PM Interpretation:04-27-2025 Performing Lab:[facility], [address] [place] [phone] Notes/Report: Urine, Clean Catch Color Urine Yellow Appearance Urine Clear PH 8.0 5.0-9.0 Glucose Urine UA Negative Negative mg/dL Urine Blood Trace Negative Specific [place] - Urine 1.010 1.005-1.025 Urine Protein 30 (1+) Neg-Trace mg/dL Urine Ketones Negative Negative mg/dL Nitrite Urine Negative Negative Leukocyte Esterase Urine Moderate (2+) Negative RBC Urine 3-5 0-2 /HPF WBC Urine 21-50 0-5 /HPF Squamous Epithelial Cell Urine 3-5 0-2 /HPF Bacteria Urine 4+ None Seen Hyaline Casts Urine 0-2 0-2 /LPF C Reactive Protein (Not yet reviewed by provider) Interpretation: Performing Lab:[facility], [address] [place] [phone] Notes/Report: C Reactive Protein 0.59 < or = 0.50 mg/dL Erythrocyte Sedimentation Ra te (Not yet reviewed by provider) Interpretation: Performing Lab:[facility], [address] [place] [phone] Notes/Report: Erythrocyte Sedimentation Rate 36 0-20 MM/HR Patients with polycythemia and many hemoglobin abnormalities may have depressed sed rates whereas patients with anemia may have elevated sed rates. Reason For Referral No Information Medications Medication SIG (Take, Route, Frequency, Duration) Notes Start Date End Date Status Estrace 0.1 MG/GM as directed Vaginal Once a day for 90 days Active Omeprazole 40 MG TAKE ONE CAPSULE BY MOUTH EVERY MORNING ON EMPTY STOMACH AT LEAST 30 MINUTES BEFORE BREAKFAST for 90 Active Nystatin 475113 UNIT/GM 1 application Ex ternally Twice a day for 30 days 06/17/2024 Not-Rukhsana ng Econazole Nitrate 1 % 1 application Exte rnally Once a day for 7 day(s) 04/30/2023 NotIrina ng Donepezil HCl 5 MG 1 tablet at bedtime Orally Once a day for 30 days 04/27/2025 Active Lisinopril-hydroCHLOROth iazide 20-12.5 MG TAKE ONE TABLET BY MOUTH EVERY DAY Active Cipro 250 MG 1 tablet Orally ever y 12 hrs for 3 day(s) 04/25/2025 Active Dicyclomine HCl 10 MG 2 capsules Orally Three times a day Not-Taking Immunizations Vaccine Route Administration Date Status Comme [...] W/U Status Risk Notes Problem Essential hypertension (77840063) Essential hypertension (I10) Active confirmed Problem Memory loss (51630826) Memory loss (R41.3) Active confirmed Problem History of malignant neoplasm of colon (659911331) History of colon cancer (Z85.038) Active confirmed Problem 036056146 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) Active confirmed Problem 783505131 History of uterine cancer (Z85.42) Active confirmed Problem 204511566538437 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 Vital Signs Blood pressure diastolic 90 mm Hg 05/04/2025 can not hear BP Height 63.5 in 05/04/2025 cannot hear BP Blood pressure systolic 120 mm Hg 05/04/2025 kate ot hear BP Weight 172 lbs 05/04/2025 cannot hear BP BMI 29.99 kg/m2 05/04/2025 cannot hear BP Encounters Encounter Location Date Provider Diagnosis Devin Morgan MD [address] [place] [address] Drive [address] [place], [place] [phone] 04/23/2025 Devin Morgan Essential hypertension I10 Devin Morgan MD [address] [place] [id number] 05/04/2025 Devin Morgan Confusion R41.0 and Headache, unspecified R51.9 Devin Morgan MD [address] [place] [id number] 05/19/2024 Devin Morgan Essential hypertension I10 Devin Morgan MD [address] [place] [id number] 06/17/2024 Devin Morgan Skin yeast infection B37.2 and Essential hypertension I10 Devin Morgan MD [address] [place] [id number] 11/07/2024 Devin Morgan Lethargy R53.83 Devin Morgan MD [address] [place] [id number] 12/15/2024 Devin Morgan Essential hypertension I10 and Memory loss R41.3 Devin Morgan MD [address] [place] [id number] 02/12/2025 Devin Morgan Ankle pain, unspecified chronicity, unspecified laterality M25.579 Devin Morgan MD [address] [place] [id number] 04/27/2025 Devin Morgan Memory loss R41.3 ; UTI (urinary tract infection) N39.0 ; Guaiac positive stools R19.5 and Depression screening Z13.31 Devin Morgan MD [address] [id number] 07/01/2024 Devin Morgan MD [address] [place] [id number] 04/25/2025 Devin Morgan MD [address] [place] [id number] 04/27/2025 Devin Morgan Assessments Encounter Date Diagnosis (ICD Code) Assessment Notes Treatment Notes Treatment Clinical Notes Section Notes 04/23/2025 Essential hypertension (ICD-10 - I10) 05/04/2025 Confusion (ICD-10 - R41.0) Total time spent on the date of the encounter is 35 minutes including both face to face time spent and time spent reviewing documentation, and counseling the patient. 05/04/2025 Headache, unspecified (ICD-10 - R51.9) 05/19/2024 Essential hypertension (ICD-10 - I10) patient [...] a shot of cortisone will refer to [facility] ortho/ patient will be going to [place] 04/27/2025 Memory loss (ICD-10 - R41.3) patient/family member verbalized understanding of medication and directions for use 04/27/2025 UTI (urinary tract infection) (ICD-10 - N39.0) was treated and will treated, will continue to monitor 04/27/2025 Guaiac positive stools (ICD-10 - R19.5) wlll send with cards. decide whether to have a colonoscopy. at her age it would be risky so will see if the cards are positive may consider colonoscopy 04/27/2025 Depression screening (ICD-10 - Z13.31) negative screen Plan Of Treatment Pending Test Test Name Order Date CRP 05/04/2025 CT BRAIN W&WO CONTRAST 05/04/2025 XR CHEST 2 VIEW PA & LAT 04/30/2023 Erythrocyte Sedimentation Rate 09/15/202 5 Comprehensive [place]. Panel Fast 5 C Reactive Protein 05/04/2025 Next Appt Details Provider Name:Devin Malone ier, 05/08/2025 10:30:00 AM, [address] [place] [address], [address], [place], [phone], Provider Name:Devin Malone ier, 05/18/2025 08:30:00 AM, [address] [place] [address], [address], [place], [phone], Provider Name:Devin Malone ier, 07/28/2025 01:30:00 PM, [address] [place] [address], [address], [place], [place], [phone], Provider Name:Devin Malone ier, 04/23/2026 07:00:00 AM, [address] [place] [address], [address], [place], [phone], Provider Name:Devin Malone ier, 04/30/2026 01:00:00 PM, [address] [place] [address], [address], [place], [phone], Insurance Providers Payer Name Payer Address Payer Phone Subscriber Number Group Number Insured Name Patient Relationship to Insured Coverage Start Date Coverage End Date [employer] [address] [place] [address] [id number] Malena Lenz Self - patient is the insured [employer] [address] [place], [place] [id number] [phone] [id number] Malena Lenz Self - patient is the insured
--- OUTSIDE RECORDS SUMMARY | 2025-05-04 21:04 | XMS_ITS | Clinical Summary ---
Author Organization [facility] Address [address] [facility] [address] [place] [address] Phone Care Team Providers Care Inshore Undersea Warfare Officer Name Role Phone Pilo Nicofaina SAUCEDABS Unavailable [phone] Devin Morgan MD Primary Care Provider Allergies [...] and CT scans to be done at [facility] since is closer to her home Patient [...] VACCINE (1 - 1-dose 75+ series) 2011 POTASSIUM LEVEL 03/17/2025 03/17/2024 INFLUENZA VACCINE (#1) 2025 COVID-19 VACCINE (1 - 2023-2 5 season) 2025 CREATININE LEVEL 09/12/2025 09/12/2024, 03/17/2024, 06/13/2023 [...] EST) CREATININE 0.50 0.5 - 1.5 mg/dL [facility] EGFR 90 >59 mL/min/1.7 3m2 [facility] Comment:Estimated glomerular filtration rate calculated using the CKD-EPI refit equation. Blood 09/12/2024 1:19 PM EST 09/12/2024 1:25 PM EST us Danny HENRY LAB BLOOD ORDERABLES Final Result [facility] [address] [place] [address] * Comprehensive metabolic panel (03/17/2024 1:30 PM EDT) SODIUM 135 133 - 146 mmol/L [facility] POTASSIUM 4.5 3.3 - 5.1 mmol/L [facility] CHLORIDE 99 96 - 108 mmol/L [facility] CO2 25 21 - 35 mmol/L [facility] BUN 15 6 - 19 mg/dL [facility] CREATININE 0.50 0.5 - 1.5 mg/dL [facility] GLUCOSE 91 70 - 99 mg/dL [facility] ALBUMIN 4.0 3.9 - 4.8 g/dL [facility] TOTAL PROTEIN 6.8 6.5 - 8.0 g/dL [facility] CALCIUM 9.0 8.4 - 10.3 mg/dL [facility] ALKALINE PHOSPHATASE 61 39 - 117 U/L [facility] TOTAL BILIRUBIN 0.3 0.0 - 1.2 mg/dL [facility] AST 15 0 - 37 U/L [facility] ALT 11 0 - 40 U/L [facility] GLOBULIN 2.8 1 - 4.8 g/dL [facility] EGFR 91 >59 mL/min/1.7 3m2 [facility] Comment:Estimated glomerular filtration rate calculated using the CKD-EPI refit equation. ANION GAP 16 10 - 20 mmol/L [facility] Blood 03/17/2024 1:30 PM EDT 03/17/2024 1:36 PM EDT us Danny HENRY LAB BLOOD ORDERABLES Final Result Performing Organization Address City/State/[facility] Co de Phone Number [facility] [address] [place] [address] from Last 3 Months or Most Recently Relevant to Health Maintenance Insurance MEDICARE PART A & B [facility] MEDICARE PART A & B [facility] [address] [place] [phone] MEDICARE PART A & B [facility] MEDICARE PART A & B MEDICARE PART A & [place] [address] MEDICARE PART A & B [facility] MEDICARE PART A & B [facility] MEDICARE [facility] A & B [facility] MEDICARE PART A & B [employer] Care Teams Inshore Undersea Warfare Officer Relationship Specialty Start Date End Date Devin Morgan MD [address] [place] [address] [place] [address] PCP - General Internal Medicine 06/13/23 Danny Daigle MBBS [email or web address] Medical Oncology 05/24/23 Additional Source Comments The information contained in this document represents components of the legal health record. It is not the complete legal health record.[facility]
--- OUTSIDE RECORDS SUMMARY | 2025-05-04 21:04 | XMS_ITS | Encounter Summary ---
Author Organization [facility] Address [address] [facility] [address] [place] [address] Phone Care Team Providers Care Process Trainer Name Role Phone Danny Daigle Unavailable [phone] Devin Morgan MD Primary Care Provider Encounter Details Date Type Department Care Team (Late st Contact Info) Description 03/17/2024 Procedure Pass [facility], Ct Scan - [address] [id number] Social History Tobacco Use Types Packs/Day Years [...] on filedocumented in this encounter Care Teams Process Trainer Relationship Specialty Start Date End Date Devin Morgan MD [address] [place] [address] [place] [address] PCP - General Internal Medicine 06/13/23 Danny Daigle MBBS [phone] (work) [email or web address] Medical Oncology 05/24/23 documented as of this encounter Additional Source Comments The information contained in this document represents components of the legal health record. It is not the complete legal health record.[facility]
--- OUTSIDE RECORDS SUMMARY | 2025-05-04 21:04 | XMS_ITS | Patient Health Record ---
Author Organization [facility] Address [address] [place] [address] Care Team Providers Care Decorative Cutting Machine Tender Name Role Phone Devin Morgan MD Primary Care Provider Glenroy Corbin Jr Unavailable Allergies Allergen (clinical drug ingredient) Drug/Non Drug Allergy documented on EMR Reaction Allergy Type Onset Date Status Substance with 9-qlcwvwu-1-methylglutary l-coenzyme A reductase inhibitor mechanism of action (substance) Statins Unknown Drug Allergy Active Keflex Unknown Drug Allergy Active Erythrocin Unknown Drug Allergy Active sulfamethoxazole / trimethoprim Bactrim Unknown Drug Allergy Active clynamyacin (uncoded) Unknown Allergy Active Reason For Referral No Information [...] Problem Status W/U Status Risk Notes Problem 935352828 Generalized abdominal pain (R10.84) Active confirmed Problem 467312014 Malignant neopla sm of colon, unspecified part of colon (C18.9) Active confirmed Problem [id number] Gastroesophageal reflux disease, unspecified whether esophagitis present (K21.9) Active confirmed Vital Signs Temperature 96.0 degrees Fahrenheit 07/23/2024 Blood pressure diastolic 00 mm Hg 07/23/2024 Height 5 ft 3.5 in in 07/23/2024 Blood pressure systolic 000 mm Hg 07/23/2024 Weight 161 lbs 07/23/2024 BMI 28.07 kg/m2 07/23/2024 Encounters Encounter Location Date Provider Diagnosis [facility] [address] [place] [address] 07/23/2024 Glenroy Velarde Jr Generalized abdominal pain [...] Date MEDICARE OF [place] [address] [place] [address] [id number] [employer]NA [employer] Self - patient is the insured [facility] [address] [place] [address] [phone] [id number] [employer] Self - patient is the insured Medical (General) History Medical History History ICD Code Hypertension Hyperlipidemia Colon cancer status post resection Gastroesophageal reflux disease Surgical History Surgery Date(Month/Year) Left carotid tumor, surgery and radiatio n therapy right breast removed knee surgery right Colon resection
== END 2025-05-04 15:45 | disposition home or self-care (01) ==
LOC: HO.LNP 15:44
PROVIDERS: Visit Provider Internal Medicine
DX: R51.9 Headache, unspecified (principal)
CPT/HCPCS: 85652; 86140

== ENCOUNTER 2025-05-19 13:35 | Outpatient (REF) | payer MEDICARE, BC, SELFPAY ==
--- OUTSIDE RECORDS SUMMARY | 2025-04-27 10:30 | XMS_ITS ---
Author Organization Devin Morgan MD Address [address] [place], [place] [id number] Care Team Providers Care Superintendent Communications Name Role Phone Devin Morgan Primary Care Provider Allergies Allergen (clinical drug ingredient) Drug/Non Drug Allergy documented on EMR Reaction Allergy Type Onset Date Status Keflex Unknown Drug Allergy Active erythromycin Erythromycin Unknown Drug Allergy A ctive sulfamethoxazole / trimethoprim Bactrim DS Unknown Drug Allergy Active 12 Hour Nasal [place] Unknown Drug Allergy Active clindamycin Clindamycin Unknown [...] MINUTES BEFORE BREAKFAST for 90 Active Nystatin 318014 UNIT/GM 1 application Ex ternally Twice a [...] Location Date Provider Diagnosis Devin Morgan MD [address] [place] [address] [place] [phone] 04/27/2025 Devin Morgan Memory loss R41.3 ; [...] may consider colonoscopy Depression screening negative screen Pending Test Test Name Order Date Urinalysis and Microscopic 04/27/2025 Urine Culture 04/27/2025 Next Appt Details Follow Up: 3 Months, Reason: Provider Name:Devin Malone ier, 07/28/2025 01:30:00 PM, [address] [place] [address], Suite [facility], [place], [place], [phone], Provider Name:Devin wilson, 04/23/2026 07:00:00 AM, [address] [place] [address], [address], [phone], Provider Name:Devin wilson, 04/30/2026 01:00:00 PM, [address] [place] [address], Suite [facility], [place], [place], [phone], Progress Notes * Malena LENZ MDOB:1934 (89 yo F)Acc No.[id number]:04/27/2025 Patient: Jannet RAMESHBogdanMalena Provider: Autumn Morgan MD :1935 A ge:89 Y S ex:Female Date:04/27/2025 Address:[address] [place], [place] [phone] Subjective: * Chief Complaints: * R eview [...] building. Home smoke detector use: yes. Housing: [facility]. Living with: alone. Occupation: weeks/months/years, unemployed,employed. [...] capsules Orally Three times a day Nystatin 667560 UNIT/GM Cream 1 application Externally Twice a day Econazole Nitrate 1 % Cream 1 application Externally Once a day Medication List reviewed and reconciled with the patientNot-Taking/PRN Dicyclomine HCl 10 MG Capsule 2 capsules Orally Three times a day Not-Taking/PRN Nystatin 148858 UNIT/GM Cream 1 application Externally Twice a day Not-Taking/PRN Econazole Nitrate 1 % Cream 1 application Externally Once a day Medication List reviewed and reconciled with the patient * Allergies: A torvastatin: [id number] Hour Nasal SprayKeflexBactrim DSErythromycinClindamycinyes[Allergies Verified] Objective: * [...] Urine Blood Trace A Negative - Specific [place] - Urine 1.010 1.005-1.025 - Urine Protein [...] trace positive. FEMALE GENITOURINARY: d one by social group worker. EXTREMITIES: n o clubbing, cyanosis, or edema. [...] true * Provider: Autumn Morgan MD Date: 04/27/2025 Generated for Lesa oconnell/Mable/Yashitting on: 05/19/2025 02:52 PM EDT History and Physical Notes * [...] had two or more falls in the st year?: No Communication Needs Communication Needs Does [...] t race positive FEMALE GENITOURINARY: done by social group worker ORAL CAVITY: mucosa moist
--- OUTSIDE RECORDS SUMMARY | 2025-04-27 11:37 | XMS_ITS ---
Author Organization Devin Morgan MD Address 10 [facility] [address] [place] [phone] Care Team Providers Care Expeditionary Fighting Vehicle Crewman Name Role Phone Devin Morgan Primary Care Provider REASON FOR VISIT colon cancer Encounters Encounter Location Date Provider Diagnosis Devin Morgan MD [address] [facility] [address] [place] [phone] 04/27/2025 Devin Morgan Plan Of Treatment Next Appt Details Provider Name:Devin Malone ier, 07/28/2025 01:30:00 PM, [address] [place] [address], [address], [phone], Provider Name:Devin wilson, 04/23/2026 07:00:00 AM, [address] [place] [address], [address], [phone], Provider Name:Devin wilson, 04/30/2026 01:00:00 PM, [address] [place] [address], [address], [phone], Progress Notes * Malena LENZ MDOB:1934 (89 yo F)Acc No.[id number]:04/27/2025 Patient: Dia EDWARDSscilla Shani :1935 A ge:89 Y S ex:Female Address:[address] [place] [address], [place], [address] * true * Date: Generated for Lesa oconnell/Mable/Jack on: 0 05/19/2025 02:52 PM EDT
--- OUTSIDE RECORDS SUMMARY | 2025-05-04 10:15 | XMS_ITS ---
Author Organization Devin Morgan MD Address [address] [place], [place] [id number] Care Team Providers Care Couture Dressmaker Name Role Phone Devin Morgan Primary Care Provider Allergies Allergen (clinical drug ingredient) Drug/Non Drug Allergy documented on EMR Reaction Allergy Type Onset Date Status Keflex Unknown Drug Allergy Active erythromycin Erythromycin Unknown Drug Allergy A ctive sulfamethoxazole / trimethoprim Bactrim DS Unknown Drug Allergy Active 12 Hour Nasal [place] Unknown Drug Allergy Active clindamycin Clindamycin Unknown Drug Allergy Act tommy atorvastatin Atorvastatin fatigue Drug Allergy A ctive Results Component Value Reference Range Notes Erythrocyte Sedimentation Ra te Reviewed date:05/05/2025 11:36:49 AM Interpretation: Performing Lab:[facility], [address] [place] [phone] Notes/Report: Erythrocyte Sedimentation Rate 36 0-20 MM/HR Patients with polycythemia and many hemoglobin abnormalities may have depressed sed rates whereas patients with anemia may have elevated sed rates. REASON FOR VISIT NOT FEELING WELL Head is Buzzing , Patiet does not remember being here last week Medications Medication SIG (Take, Route, Frequency, Duration) Notes Start Date End Date Status Estrace 0.1 MG/GM as directed Vaginal Once a day for 90 days Active Omeprazole 40 MG TAKE ONE CAPSULE BY MOUTH EVERY MORNING ON EMPTY STOMACH AT LEAST 30 MINUTES BEFORE BREAKFAST for 90 Active Nystatin 973932 UNIT/GM 1 application Ex ternally Twice a day for 30 days 06/17/2024 Not-Taki ng Donepezil HCl 5 MG 1 tablet at bedtime Orally Once a day for 30 days 04/27/2025 Active Dicyclomine HCl 10 MG 2 capsules Orally Three times a day Not-Taking Econazole Nitrate 1 % 1 application Exte rnally Once a day for 7 day(s) 04/30/2023 Not-Taki ng Lisinopril-hydroCHLOROth iazide 20-12.5 MG TAKE ONE TABLET BY MOUTH EVERY DAY Active Cipro 250 MG 1 tablet Orally ever y 12 hrs for 3 day(s) 04/25/2025 Active Vital Signs Blood pressure systolic 120 mm Hg 05/04/20 25 Blood pressure diastolic 90 mm Hg 025 Height 63.5 in 05/04/2025 Weight 172 lbs 05/04/2025 BMI 29.99 kg/m2 05/04/2025 cannot hear BP Encounters Encounter Location Date Provider Diagnosis Devin Morgan MD [address] [place] [address] [place] [phone] 05/04/2025 Devin Morgan Confusion R41.0 and Headache, unspecified R51.9 Assessments Encounter Date Diagnosis (ICD Code) Assessment Notes Treatment Notes Treatment Clinical Notes Section Notes 05/04/2025 Confusion (ICD-10 - R41.0) Total time spent on the date of the encounter is 35 minutes including both face to face time spent and time spent reviewing documentation, and counseling the patient. 05/04/2025 Headache, unspecified (ICD-10 - R51.9) Plan Of Treatment Treatment Notes Assessment Notes Confusion Total time spent on the date of the encounter is 35 minutes including both face to face time spent and time spent reviewing documentation, and counseling the patient. Pending Test Test Name Order Date CRP 05/04/2025 CT BRAIN W&WO CONTRAST 05/04/2025 Next Appt Details Follow Up: sunday, Reason: Provider Name:Devin wilson, 07/28/2025 01:30:00 PM, [address] [place] [address], Suite [facility], [place], [place], [phone], Provider Name:Devin wilson, 04/23/2026 07:00:00 AM, [address] [place] [address], Suite [facility], [place], [place], [phone], Provider Name:Devin wilson, 04/30/2026 01:00:00 PM, [address] [place] [address], [address], [place], [phone], Progress Notes * Malena LENZ MDOB:1934 (89 yo F)Acc No.[id number]:05/04/2025 Progress Notes Patient: Malena EDWARDS Provider: Autumn Morgan MD :1935 A ge:89 Y S ex:Female Date:05/04/2025 Address:[address] [place] [id number] Subjective: * Chief Complaints: * N OT FEELING WELL Head is Buzzing Patiet does not remember being here last week * HPI: S ymptom(s): pt is a 89 yo female here today becasue she was having a headache. was not feeling well this morning./ feels unsteady today. * ROS: G eneral/Constitutional: Denies C hills. D enies F atigue. D enies F ever. A dmits H eadache. E NT: Denies S ore throat. R espiratory: Denies C ough. D enies S hortness of breath at rest. D enies S hortness of breath with exertion. G astrointestinal: Denies D iarrhea. D enies N ausea. * Medical History: * Surgical History: * Hospitalization/Major Diagno stic Procedure: * Medications: T akingEstrace 0.1 MG/GM Cream as directed Vaginal Once a day Omeprazole 40 MG Capsule Delayed Release TAKE ONE CAPSULE BY MOUTH EVERY MORNING ON EMPTY STOMACH AT LEAST 30 MINUTES BEFORE BREAKFAST Lisinopril-hydroCHLOROthiazide 20-12.5 MG Tablet TAKE ONE TABLET BY MOUTH EVERY DAY Cipro 250 MG Tablet 1 tablet Orally every 12 hrs Donepezil HCl 5 MG Tablet 1 tablet at bedtime Orally Once a day Taking Estrace 0.1 MG/GM Cream as directed Vaginal Once a day Taking Omeprazole 40 MG Capsule Delayed Release TAKE ONE CAPSULE BY MOUTH EVERY MORNING ON EMPTY STOMACH AT LEAST 30 MINUTES BEFORE BREAKFAST Taking Lisinopril-hydroCHLOROthiazide 20-12.5 MG Tablet TAKE ONE TABLET BY MOUTH EVERY DAY Taking Cipro 250 MG Tablet 1 tablet Orally every 12 hrs Taking Donepezil HCl 5 MG Tablet 1 tablet at bedtime Orally Once a day Not-Taking/PRNDicyclomine HCl 10 MG Capsule 2 capsules Orally Three times a day Nystatin 666722 UNIT/GM Cream 1 application Externally Twice a day Econazole Nitrate 1 % Cream 1 application Externally Once a day Not-Taking/PRN Dicyclomine HCl 10 MG Capsule 2 capsules Orally Three times a day Not-Taking/PRN Nystatin 733461 UNIT/GM Cream 1 application Externally Twice a day Not-Taking/PRN Econazole Nitrate 1 % Cream 1 application Externally Once a day * Allergies: A torvastatin: uegyahr13 Hour Nasal SprayKeflexBactrim DSErythromycinClindamycinyes[Allergies Verified] Objective: * Vitals: H t: 63.5, Wt: 172, BMI:29.99, BP:120/90, Wt-k.02. cannot hear BP. * Examination: G eneral Examination: GENERAL APPEARANCE: h as some confusion and seems worse.? HEAD: a bnormal with some mild tenderness over scalp. possibly more over the temporal arteries. SKIN: g ood turgor. HEART: n o murmurs, rubs, gallops, regular rate and rhythm.? Assessment: * Assessment: 1. C onfusion - R41.0 (Primary) 2 . H eadache, unspecified - R51.9 ? Plan: * Treatment: 2. H eadache, unspecified L AB: CRP L AB: Erythrocyte Sedimentation Rate (Collection Date & Time - 05/04/2025 02:15 PM) * Procedure Codes: 3 6415 VENIPUNCT, ROUTINE* * Follow Up: ortiz dukes * * Sign off status: Completed true * Provider: Autumn Morgan MD Date: 0 05/04/2025 Generated for Lesa oconnell/Mable/Jack on: 0 05/19/2025 02:52 PM EDT History and Physical Notes * HPI (History of Present Illness) Category Sub-Category Detail Notes Category Not es Symptom(s) pt is a 89 yo f emale here today becasue she was having a headache. was not feeling well this morning./ feels unsteady today Examination Category Sub-Category Detail Notes Category Not es General Examination GENERAL APPEARANCE: has some confusion and seems worse HEAD: abnormal with some m ild tenderness over scalp. possibly more over the temporal arteries HEART: no murmurs, rubs, ga llops, regular rate and rhythm SKIN: good turgor
--- OUTSIDE RECORDS SUMMARY | 2025-05-08 06:30 | XMS_ITS ---
Author Organization Devin Morgan MD Address [address] [place], [place] [address] Care Team Providers Care Expediter Name Role Phone Devin Morgan Primary Care Provider Allergies Allergen (clinical drug ingredient) Drug/Non Drug Allergy documented on EMR Reaction Allergy Type Onset Date Status Keflex Unknown Drug Allergy Active erythromycin Erythromycin Unknown Drug Allergy A ctive sulfamethoxazole / trimethoprim Bactrim DS Unknown Drug Allergy Active 12 Hour Nasal [place] Unknown Drug Allergy Active clindamycin Clindamycin Unknown Drug Allergy Act tommy atorvastatin Atorvastatin fatigue Drug Allergy A ctive REASON FOR VISIT per provider Medications Medication SIG (Take, Route, Frequency, Duration) Notes Start Date End Date Status Dicyclomine HCl 10 MG 2 capsules Orally Three times a day Not-Taking Nystatin 074406 UNIT/GM 1 application Ex ternally Twice a day for 30 days 06/17/2024 Not-Taki ng Cipro 250 MG 1 tablet Orally ever y 12 hrs for 3 day(s) 04/25/2025 Not-Taking Donepezil HCl 5 MG 1 tablet at bedtime Orally Once a day for 30 days 04/27/2025 Active Lisinopril-hydroCHLOROth iazide 20-12.5 MG TAKE ONE TABLET BY MOUTH EVERY DAY Active Econazole Nitrate 1 % 1 application Exte rnally Once a day for 7 day(s) 04/30/2023 Not-Taki ng Estrace 0.1 MG/GM as directed Vaginal Once a day for 90 days Active Omeprazole 40 MG TAKE ONE CAPSULE BY MOUTH EVERY MORNING ON EMPTY STOMACH AT LEAST 30 MINUTES BEFORE BREAKFAST for 90 Active Vital Signs Blood pressure systolic 132 mm Hg 05/08/20 25 Blood pressure diastolic 90 mm Hg 025 Height 63.5 in 05/08/2025 Weight 172 lbs 05/08/2025 BMI 29.99 kg/m2 05/08/2025 Encounters Encounter Location Date Provider Diagnosis Devin Morgan MD [address] [place] [address] [place] [phone] 05/08/2025 Devin Morgan Chest tightness R07.89 ; Confusion R41.0 and Dizziness R42 Assessments Encounter Date Diagnosis (ICD Code) Assessment Notes Treatment Notes Treatment Clinical Notes Section Notes 05/08/2025 Chest tightness (ICD-10 - R07.89) ecg was no acute changes. and her complaints are changing/ does not appear to be cardiac 05/08/2025 Confusion (ICD-10 - R41.0) little better today but still asking same questions over 05/08/2025 Dizziness (ICD-10 - R42) just came on Plan Of Treatment Treatment Notes Assessment Notes Chest tightness ecg was no acute kyaw nges. and her complaints are changing/ does not appear to be cardiac Confusion little better today but still asking same questions over Dizziness just came on Next Appt Details Follow Up: after cat scan, Ernesto sanches: Provider Name:Devin wilson, 07/28/2025 01:30:00 PM, [address] [place] [address], [address], [phone], Provider Name:Devin wilson, 04/23/2026 07:00:00 AM, [address] [place] [address], [address], [phone], Provider Name:Devin wilson, 04/30/2026 01:00:00 PM, [address] [place] [address], [address], [phone], Progress Notes * Malena LENZ MDOB:1934 (89 yo F)Acc No.[id number]:05/08/2025 Progress Notes Patient: Malena EDWARDS Provider: Autumn Morgan MD :1935 A ge:89 Y S ex:Female Date:05/08/2025 Address:[address] [place] [address], Arsalan matias ID-[id number] Subjective: * Chief Complaints: * P er provider * HPI: S ymptom(s): patient is a 89 yo female here for follow up visit/ still with frontal headache and balance is not good. * ROS: G eneral/Constitutional: Denies C hills. D enies F atigue. D enies F ever. D enies H eadache. E NT: Denies S ore throat. R espiratory: Denies C ough. D enies S hortness of breath at rest. C ardiovascular: Patient complaining of p ressure in chest and head when talking. G astrointestinal: Denies D iarrhea. D enies [...] TAKE ONE TABLET BY MOUTH EVERY DAY Donepezil HCl 5 MG Tablet 1 tablet at bedtime Orally Once a day Taking Estrace 0.1 MG/GM Cream as directed Vaginal Once a day Taking Omeprazole 40 MG Capsule Delayed Release TAKE ONE CAPSULE BY MOUTH EVERY MORNING ON EMPTY STOMACH AT LEAST 30 MINUTES BEFORE BREAKFAST Taking Lisinopril- hydroCHLOROthiazide 20-12.5 MG Tablet TAKE ONE TABLET BY MOUTH EVERY DAY Taking Donepezil HCl 5 MG Tablet 1 tablet at bedtime Orally Once a day Not-Taking/PRNCipro 250 MG Tablet 1 tablet Orally every 12 hrs Dicyclomine HCl 10 MG Capsule 2 capsules Orally Three times a day Nystatin 025476 UNIT/GM Cream 1 application Externally Twice a day Econazole Nitrate 1 % Cream 1 application Externally Once a day Medication List reviewed and reconciled with the patientNot-Taking/PRN Cipro 250 MG Tablet 1 tablet Orally every 12 hrs Not-Taking/PRN Dicyclomine HCl 10 MG Capsule 2 capsules Orally Three times a day Not-Taking/PRN Nystatin 089601 UNIT/GM Cream 1 application Externally Twice a day Not-Taking/PRN Econazole Nitrate 1 % Cream 1 application Externally Once a day Medication List reviewed and reconciled with the patient * Allergies: A torvastatin: [id number] Hour Nasal SprayKeflexBactrim DSErythromycinClindamycinyes[Allergies Verified] Objective: * Vitals: H t: 63.5, Wt: 172, BMI:29.99, BP:132/90, Wt-k.02. * Examination: G eneral Examination: GENERAL APPEARANCE: a lert, well hydrated, in no distress.? HEAD: a bnormal tender over frontal area.. SKIN: g ood turgor. HEART: n o murmurs, rubs, gallops, regular rate and rhythm.? LUNGS: g ood air movement, no wheezes, rales, rhonchi. Assessment: * Assessment: 1. C hest tightness - R07.89 (Primary) 2 . C onfusion - R41.0 ?3. D izziness - R42 Plan: * Treatment: 2. C onfusion Notes: little better today but still asking same questions over 3. D izziness Notes: just came on * Procedure Codes: * Follow Up: a fter cat scan * * Sign off status: Completed true * Provider: Autumn Morgan MD Date: 0 05/08/2025 Generated for Lesa oconnell/Mable/Yashitting on: 05/19/2025 02:53 PM EDT History and Physical Notes * HPI (History of Present Illness) Category Sub-Category Detail Notes Category Not es Symptom(s) patient is a 89 yo female here for follow up visit/ still with frontal headache and balance is not good Examination Category Sub-Category Detail Notes Category Not es General Examination GENERAL APPEARANCE: alert, w ell hydrated, in no distress HEAD: abnormal tender over frontal area. HEART: no murmurs, rubs, ga llops, regular rate and rhythm LUNGS: good air movement, n o wheezes, rales, rhonchi SKIN: good turgor
--- OUTSIDE RECORDS SUMMARY | 2025-05-19 04:30 | XMS_ITS ---
Author Organization Devin Morgan MD Address [address] [place] [phone] Care Team Providers Care Account Assistant Name Role Phone Devin Morgan Primary Care Provider [phone] Results Component Value Reference Range Notes Urinalysis and Microscopic ( Not yet reviewed by provider) Interpretation: Performing Lab:[facility], [address] [place] [id number] Notes/Report: Color Urine Yellow Appearance Urine Clear PH 7.0 5.0-9.0 Glucose Urine UA Negative Negative mg/dL Urine Blood Negative Negative Specific [place] - Urine <= 1.005 1.005-1.025 Urine Protein Negative Neg-Trace mg/dL Urine Ketones Negative Negative mg/dL Nitrite Urine Negative Negative Leukocyte Esterase Urine Small (1+) Negative RBC Urine 0-2 0-2 /HPF WBC Urine 0-5 0-5 /HPF Squamous Epithelial Cell Urine 0-2 0-2 /HPF Bacteria Urine 4+ None Seen Hyaline Casts Urine 0-2 0-2 /LPF REASON FOR VISIT urine culture Encounters Encounter Location Date Provider Diagnosis Devin Morgan MD [address] [place] [phone] 05/19/2025 Devin Morgan UTI (urinary tract infection) N39.0 and Memory loss R41.3 Assessments Encounter Date Diagnosis (ICD Code) Assessment Notes Treatment Notes Treatment Clinical Notes Section Notes 05/19/2025 UTI (urinary tract infection) (ICD-10 - N39.0) 05/19/2025 Memory loss (ICD-10 - R41.3) Plan Of Treatment Pending Test Test Name Order Date Urinalysis and Microscopic 05/19/2025 Urine Culture 05/19/2025 Next Appt Details Provider Name:Devin Malone ier, 07/28/2025 01:30:00 PM, [address], [address], [place], [id number], Provider Name:Devin Malone ier, 04/23/2026 07:00:00 AM, [address], [address], [place], [id number], Provider Name:Devin Malone ier, 04/30/2026 01:00:00 PM, [address] [facility], [address], [place], [id number], Progress Notes * Malena LENZ MDOB:1934 (89 yo F)Acc No.[id number]:05/19/2025 Progress Note Patient: Malena EDWARDS Provider: Autumn Morgan MD :1935 A ge:89 Y S ex:Female Date:05/19/2025 Address:[address] [place], [place] [phone] Subjective: * Chief Complaints: * 1 . Urine culture. * Medical History: Objective: * Vitals: Assessment: * Assessment: 1. U TI (urinary tract infection) - N39.0 (Primary) 2 . M gilda loss - R41.3 Plan: * Treatment: 2. M gilda loss L AB: Urinalysis and Microscopic (Collection Date & Time - 05/19/2025 08:30 AM) L AB: Urine Culture * * The named appointment provid er may or may not be the originator of this progress note, and it is not deemed complete until electronically signed by the appointment provider. Sign off status: Pending * Provider: Autumn Morgan MD Date: 0 05/19/2025 Generated for Lesa oconnell/Mable/eTgemitting on: 05/19/2025 02:53 PM EDT
[2025-05-19 13:50] LABS: Appearance Urine Clear; Glucose Urine UA Negative (Negative); PH 7.0 (5.0-9.0); Specific Gravity - Urine <= 1.005 (1.005-1.025); UMIC TRIGGER UA YES
--- OUTSIDE RECORDS SUMMARY | 2025-05-19 14:52 | XMS_ITS | Encounter Summary ---
Author Organization [facility] Address [address] [facility] [address] [place] [address] Phone Care Team Providers Care Digital Advisor Name Role Phone Danny Daigle Unavailable [phone] Devin Morgan MD Primary Care Provider Encounter Details Date Type Department Care Team (Late st Contact Info) Description 03/17/2024 Procedure Pass [facility], Ct Scan - [address] [phone] Social History Tobacco Use Types Packs/Day Years [...] on filedocumented in this encounter Care Teams Digital Advisor Relationship Specialty Start Date End Date Devin Morgan MD [address] [place] [address] [place] [address] PCP - General Internal Medicine 06/13/23 Danny Daigle MBBS [phone] (work) [email or web address] Medical Oncology 05/24/23 documented as of this encounter Additional Source Comments The information contained in this document represents components of the legal health record. It is not the complete legal health record.[facility]
--- OUTSIDE RECORDS SUMMARY | 2025-05-19 14:52 | XMS_ITS | Clinical Summary ---
Author Organization [facility] Address [address] [facility] [address] [place] [address] Phone Care Team Providers Care Operations Processor Name Role Phone Pilo Nicofaina SAUCEDABS Unavailable [phone] Devin Morgan MD Primary Care Provider Allergies [...] and CT scans to be done at [facility] since is closer to her home [...] EST) CREATININE 0.50 0.5 - 1.5 mg/dL [facility] EGFR 90 >59 mL/min/1.7 3m2 [facility] Comment:Estimated glomerular filtration rate calculated using the CKD-EPI refit equation. Blood 09/12/2024 1:19 PM EST 09/12/2024 1:25 PM EST us Danny HENRY LAB BLOOD ORDERABLES Final Result [facility] [address] [place] [address] * Comprehensive metabolic panel (03/17/2024 1:30 PM EDT) SODIUM 135 133 - 146 mmol/L [facility] POTASSIUM 4.5 3.3 - 5.1 mmol/L [facility] CHLORIDE 99 96 - 108 mmol/L [facility] CO2 25 21 - 35 mmol/L [facility] BUN 15 6 - 19 mg/dL [facility] CREATININE 0.50 0.5 - 1.5 mg/dL [facility] GLUCOSE 91 70 - 99 mg/dL [facility] ALBUMIN 4.0 3.9 - 4.8 g/dL [facility] TOTAL PROTEIN 6.8 6.5 - 8.0 g/dL [facility] CALCIUM 9.0 8.4 - 10.3 mg/dL [facility] ALKALINE PHOSPHATASE 61 39 - 117 U/L [facility] TOTAL BILIRUBIN 0.3 0.0 - 1.2 mg/dL [facility] AST 15 0 - 37 U/L [facility] ALT 11 0 - 40 U/L [facility] GLOBULIN 2.8 1 - 4.8 g/dL [facility] EGFR 91 >59 mL/min/1.7 3m2 [facility] Comment:Estimated glomerular filtration rate calculated using the CKD-EPI refit equation. ANION GAP 16 10 - 20 mmol/L [facility] Blood 03/17/2024 1:30 PM EDT 03/17/2024 1:36 PM EDT us Danny HENRY LAB BLOOD ORDERABLES Final Result Performing Organization Address City/State/[facility] Co de Phone Number [facility] [address] [place] [address] from Last 3 Months or Most Recently Relevant to Health Maintenance Insurance MEDICARE PART A & B [facility] MEDICARE PART A & B [facility] [address] [place] [id number] MEDICARE PART A & B [facility] MEDICARE PART A & B MEDICARE PART A & [place] [address] [place] [address] MEDICARE PART A & B [place] [facility] MEDICARE PART A & B [place] [facility] MEDICARE PART A & B [facility] MEDICARE PART A & B [employer] Care Teams Operations Processor Relationship Specialty Start Date End Date Devin Morgan MD [address] [place] [address] [place] [address] PCP - General Internal Medicine 06/13/23 Danny Daigle MBBS [email or web address] Medical Oncology 05/24/23 Additional Source Comments The information contained in this document represents components of the legal health record. It is not the complete legal health record.[facility]
--- OUTSIDE RECORDS SUMMARY | 2025-05-19 14:53 | XMS_ITS | Patient Health Record ---
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 Name Role Phone Devin Morgan Primary Care Provider Allergies Allergen (clinical drug ingredient) Drug/Non Drug Allergy documented on EMR Reaction Allergy Type Onset Date Status Keflex Unknown Drug Allergy Active erythromycin Erythromycin Unknown Drug Allergy A ctive sulfamethoxazole / trimethoprim Bactrim DS Unknown Drug Allergy Active 12 Hour Nasal [place] Unknown Drug Allergy Active clindamycin Clindamycin Unknown Drug Allergy Act tommy atorvastatin Atorvastatin fatigue Drug Allergy A ctive Results Component Value Reference Range Notes MM tomosynthesis screening L T Reviewed date:08/08/2024 04:39:06 PM Interpretation: Performing Lab: Notes/Report: [facility] [address] [place] [address] Mammography Report Signed with Espinoza Patient: Malena Lenz MR#: [id number] : 1935 Acct:[id number] Age/Sex: 89 / F ADM Date: 07/30/24 Loc: HO.MAMMO Attending Dr: Devin Morgan MD Ordering Physician: Devin Morgan MD Results: 2Be nign Findings Date of Service: 07/30/24 Follow Up: 1 Year From Orig inal Mammogram Procedure(s): MM tomosynthesis screening LT Accession Number(s): [id number] cc: Devin Morgan MD ADDENDUM ADDENDUM #1 [...] OV> 08/06/24 1027 DD/ 29 TD/TT: 07/30/241452 Child Psychiatrist: [facility] [address] [place] [address] [place] [address] Mammography Report Signed with Addenda Patient: Malena Lenz MR#: [id number] : 1935 Acct:[id number] Age/Sex: 89 / F ADM Date: 07/30/24 Loc: HO.MAMMO Attending Dr: Devin Morgan MD Ordering Physician: Devin Morgan MD Results: 2Be nign Findings Date of Service: 07/30/24 Follow Up: 1 Year From Orig ina Mammogram Procedure(s): MM tomosynthesis screening LT Accession Number(s): [id number] cc: Devin Morgan MD ADDENDUM ADDENDUM #1 [...] by: Christy Patterson DO 08/06/2024 10:27 AM [facility] Dictated By: Christy Patterson DO Signed By: <Electronically signed by Christy Patterson DO in OV> 08/06/24 1027 DD/ 1430 TD/TT: 07/30/24 1453 Child Psychiatrist: Kaci Escoto Reviewed date:11/08/2024 06:19:50 PM Interpretation: Performing Lab:[facility], [address] [place] [phone] Notes/Report: Kaci Escoto See Note Specimen held untested for 24 hours; Call to request Chemistry testing. Complete Blood Count Auto Di ff Reviewed date:11/10/2024 12:54:37 PM Interpretation: Performing Lab:[facility], [address] [place] [phone] Notes/Report: White Blood Count 5.3 4.8-10.8 X10*3/uL [...] te Reviewed date:11/08/2024 06:15:33 PM Interpretation: Performing Lab:[facility], [address] [place] [phone] Notes/Report: Erythrocyte Sedimentation Rate 36 0-20 MM/HR Patients with polycythemia and many hemoglobin abnormalities may have depressed sed rates whereas patients with anemia may have elevated sed rates. Comprehensive [place]. Panel Fa Reviewed date:11/10/2024 05:20:05 PM Interpretation: Performing Lab:[facility], [address] [place] [phone] Notes/Report: Sodium 137 135-145 mmol/L Potassium 3.7 [...] T4 Reviewed date:11/08/2024 06:15:41 PM Interpretation: Performing Lab:[facility], [address] [place] [phone] Notes/Report: TSH reflex Free T4 0.96 0.32-4.0 uIU/mL Comprehensive Met. Panel Reviewed date:04/23/2025 05:00:49 PM Interpretation: Performing Lab:[address] [phone] Notes/Report: Sodium 140 135-145 mmol/L Potassium 3.8 [...] Culture Reviewed date:04/25/2025 03:48:49 PM Interpretation: Performing Lab:[address] [phone] Notes/Report: O:KLEPNE Klebsiella pneumoniae Urine Culture Quant Urine Culture > 100,000 cfu/mL Ampicillin 16 Cefazolin 2 Cefepime <=0.12 Ceftriaxone <=0.25 Ciprofloxacin <=0.06 Gentamicin <=1 Nitrofurantoin 64 Trimethoprim/Sulfamethoxa zole <=20 Complete Blood Count Auto Di ff Reviewed date:04/23/2025 04:51:51 PM Interpretation: Performing Lab:[address] [phone] Notes/Report: White Blood Count 5.5 4.8-10.8 X10*3/uL [...] Panel Reviewed date:04/23/2025 12:36:01 PM Interpretation: Performing Lab:[facility], [address] [place] [phone] Notes/Report: Triglycerides 96 <150 mg/dL Desirable Triglyceride: [...] t Reviewed date:04/27/2025 02:08:25 PM Interpretation:04-27-2025 Performing Lab:[facility], [address] [place] [phone] Notes/Report: Urine, Clean Catch Color Urine Yellow Appearance Urine Clear PH 8.0 5.0-9.0 Glucose Urine UA Negative Negative mg/dL Urine Blood Trace Negative Specific [place] - Urine 1.010 1.005-1.025 Urine Protein 30 (1+) Neg-Trace mg/dL Urine Ketones Negative Negative mg/dL Nitrite Urine Negative Negative Leukocyte Esterase Urine Moderate (2+) Negative RBC Urine 3-5 0-2 /HPF WBC Urine 21-50 0-5 /HPF Squamous Epithelial Cell Urine 3-5 0-2 /HPF Bacteria Urine 4+ None Seen Hyaline Casts Urine 0-2 0-2 /LPF C Reactive Protein Reviewed date:05/05/2025 11:36:55 AM Interpretation: Performing Lab:[facility], [address] [place] [phone] Notes/Report: C Reactive Protein 0.59 < or = 0.50 mg/dL Erythrocyte Sedimentation Ra te Reviewed date:05/05/2025 11:36:49 AM Interpretation: Performing Lab:[facility], [address] [place] [phone] Notes/Report: Erythrocyte Sedimentation Rate 36 0-20 MM/HR Patients with polycythemia and many hemoglobin abnormalities may have depressed sed rates whereas patients with anemia may have elevated sed rates. Urinalysis and Microscopic ( Not yet reviewed by provider) Interpretation: Performing Lab:[facility], [address] [place] [phone] Notes/Report: Color Urine Yellow Appearance Urine Clear PH 7.0 5.0-9.0 Glucose Urine UA Negative Negative mg/dL Urine Blood Negative Negative Specific [place] - Urine <= 1.005 1.005-1.025 Urine Protein Negative Neg-Trace mg/dL Urine Ketones Negative Negative mg/dL Nitrite Urine Negative Negative Leukocyte Esterase Urine Small (1+) Negative RBC Urine 0-2 0-2 /HPF WBC Urine 0-5 0-5 /HPF Squamous Epithelial Cell Urine 0-2 0-2 /HPF Bacteria Urine 4+ None Seen Hyaline Casts Urine 0-2 0-2 /LPF Reason For Referral No Information Medications Medication SIG (Take, Route, Frequency, Duration) Notes Start Date End Date Status Dicyclomine HCl 10 MG 2 capsules Orally Three times a day Not-Taking Nystatin 057592 UNIT/GM 1 application Ex ternally Twice a day for 30 days 06/17/2024 Not-Rukhsana ng Cipro 250 MG 1 tablet Orally ever y 12 hrs for 3 day(s) 04/25/2025 Not-Taking Donepezil HCl 5 MG 1 tablet at bedtime Orally Once a day for 30 days 04/27/2025 Active Econazole Nitrate 1 % 1 application Exte rnally Once a day for 7 day(s) 04/30/2023 Not-Sheldoni ng Lisinopril-hydroCHLOROth iazide 20-12.5 MG TAKE ONE TABLET BY MOUTH EVERY DAY Active Estrace 0.1 MG/GM as directed Vaginal Once a day for 90 days Active Omeprazole 40 MG TAKE ONE CAPSULE BY MOUTH EVERY MORNING ON EMPTY STOMACH AT LEAST 30 MINUTES BEFORE BREAKFAST for 90 Active Immunizations Vaccine Route Administration Date Status [...] W/U Status Risk Notes Problem Essential hypertension (29966875) Essential hypertension (I10) Active confirmed Problem Memory loss (97692202) Memory loss (R41.3) Active confirmed Problem History of malignant neoplasm of colon (281080945) History of colon cancer (Z85.038) Active confirmed Problem 625518743 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) Active confirmed Problem 106586852 History of uterine cancer (Z85.42) Active confirmed Problem 920945936789021 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 Vital Signs Blood pressure diastolic 90 mm Hg 05/08/2025 Height 63.5 in 05/08/2025 Blood pressure systolic 132 mm Hg 05/08/2025 Weight 172 lbs 05/08/2025 BMI 29.99 kg/m2 05/08/2025 Encounters Encounter Location Date Provider Diagnosis Devin Morgan MD [address] [place] [id number] 04/23/2025 Devin Morgan Essential hypertension I10 Devin Morgan MD [address] [place] [address] [id number] 05/19/2025 Devin Morgan UTI (urinary tract infection) N39.0 and Memory loss R41.3 Devin Morgan MD [address] [place] [id number] 05/19/2024 Devin Morgan Essential hypertension I10 Devin Morgan MD [address] [place] [id number] 06/17/2024 Devin Morgan Skin yeast infection B37.2 and Essential hypertension I10 Devin Morgan MD [address] [place] [id number] 11/07/2024 Devin Morgan Lethargy R53.83 Devin Morgan MD [address] [place] [id number] 12/15/2024 Devin Morgan Essential hypertension I10 and Memory loss R41.3 Devin Morgan MD [address] [place] [address] [id number] 02/12/2025 Devin Morgan Ankle pain, unspecified chronicity, unspecified laterality M25.579 Devin Morgan MD [address] [place] [id number] 04/27/2025 Devin Morgan Memory loss R41.3 ; UTI (urinary tract infection) N39.0 ; Guaiac positive stools R19.5 and Depression screening Z13.31 Devin Morgan MD [address] [place] [id number] 05/04/2025 Devin Morgan Confusion R41.0 and Headache, unspecified R51.9 Devin Morgan MD [address] [place] [id number] 05/08/2025 Devin Morgan Chest tightness R07.89 ; Confusion R41.0 and Dizziness R42 Devin Morgan MD [address] [id number] 07/01/2024 Devin Morgan MD [address] [place] [address] [id number] 04/25/2025 Devin Morgan MD [address] [id number] 04/27/2025 Devin Morgan Assessments Encounter Date Diagnosis (ICD Code) Assessment Notes Treatment Notes Treatment Clinical Notes Section Notes 04/23/2025 Essential hypertension (ICD-10 - I10) 05/19/2025 UTI (urinary tract infection) (ICD-10 - N39.0) 05/19/2024 Essential hypertension (ICD-10 - I10) patient [...] a shot of cortisone will refer [place] [facility]/ patient will be going to [facility] [place] in [place] 04/27/2025 Memory loss (ICD-10 - R41.3) patient/family member verbalized understanding of medication and directions for use 04/27/2025 UTI (urinary tract infection) (ICD-10 - N39.0) was treated and will treated, will continue to monitor 05/04/2025 Confusion (ICD-10 - R41.0) Total time spent on the date of the encounter is 35 minutes including both face to face time spent and time spent reviewing documentation, and counseling the patient. 05/04/2025 Headache, unspecified (ICD-10 - R51.9) 05/08/2025 Chest tightness (ICD-10 - R07.89) ecg was no acute changes. and her complaints are changing/ does not appear to be cardiac 05/08/2025 Confusion (ICD-10 - R41.0) little better today but still asking same questions over 05/19/2025 Memory loss (ICD-10 - R41.3) 04/27/2025 Guaiac positive stools (ICD-10 - R19.5) wlll send with cards. decide whether to have a colonoscopy. at her age it would be risky so will see if the cards are positive may consider colonoscopy 05/08/2025 Dizziness (ICD-10 - R42) just came on 04/27/2025 Depression screening (ICD-10 - Z13.31) negative screen Plan Of Treatment Pending Test Test Name Order Date CRP 05/04/2025 CT BRAIN W&WO CONTRAST 05/04/2025 XR CHEST 2 VIEW PA & LAT 04/30/2023 Comprehensive [place]. Panel Fast Urinalysis and Microscopic 05/19/2025 Urine Culture 05/19/2025 Next Appt Details Provider Name:Devin wilson, 07/28/2025 01:30:00 PM, [address] [place] [address], [address], [place], [place], [phone], Provider Name:Devin wilson, 04/23/2026 07:00:00 AM, [address] [place] [address], [address], [place], [place], [phone], Provider Name:Devin wilson, 04/30/2026 01:00:00 PM, [address], [address], [place], [place], [phone], Insurance Providers Payer Name Payer Address Payer Phone Subscriber Number Group Number Insured Name Patient Relationship to Insured Coverage Start Date Coverage End Date [employer] [address] [place] [address] [id number] Malena Lenz Self - patient is the insured [facility] [address] [place], [place] [phone] [id number] Malena Lenz Self - patient is the insured
--- OUTSIDE RECORDS SUMMARY | 2025-05-19 14:53 | XMS_ITS | Patient Health Record ---
Author Organization [facility] Address [address] [place] [address] Care Team Providers Care Chemistry Research Assistant Name Role Phone Devin Morgan MD Primary Care Provider Glenroy Corbin Jr Unavailable [phone] Allergies Allergen (clinical drug ingredient) Drug/Non Drug Allergy documented on EMR Reaction Allergy Type Onset Date Status Keflex Unknown Drug Allergy Active Erythrocin Unknown Drug Allergy Active sulfamethoxazole / trimethoprim Bactrim Unknown Drug Allergy Active clynamyacin (uncoded) Unknown Allergy Active Substance with 4-kpewiqt-1-methylglutary l-coenzyme A reductase inhibitor mechanism of action [...] Problem Status W/U Status Risk Notes Problem [id number] Generalized abdominal pain (R10.84) Active confirmed Problem 805536377 Malignant neopla sm of colon, unspecified part of colon (C18.9) Active confirmed Problem 365007528 Gastroesophageal reflux disease, unspecified whether esophagitis present (K21.9) Active confirmed Vital Signs Temperature 96.0 degrees Fahrenheit 07/23/2024 Blood pressure diastolic 00 mm Hg 07/23/2024 Height 5 ft 3.5 in in 07/23/2024 Blood pressure systolic 000 mm Hg 07/23/2024 Weight 161 lbs 07/23/2024 BMI 28.07 kg/m2 07/23/2024 Encounters Encounter Location Date Provider Diagnosis [facility] [address] [place] [address] 07/23/2024 Glenroy Velarde Jr Generalized abdominal pain [...] Date MEDICARE OF [place] [address] [place] [address] [id number] ALENA FAIRBANKSSCILLA Self - patient is the insured [facility] [address] [place] [address] [id number] NIXON FAIRBANKS Self - patient is the insured Medical (General) History Medical History History ICD Code Hypertension Hyperlipidemia Colon cancer status post resection Gastroesophageal reflux disease Surgical History Surgery Date(Month/Year) Left carotid tumor, surgery and radiatio n therapy right breast removed knee surgery right Colon resection
== END 2025-05-19 13:36 | disposition home or self-care (01) ==
LOC: HO.LNP 13:35
PROVIDERS: Visit Provider Internal Medicine
DX: R41.3 Other amnesia (principal); N39.0 Urinary tract infection, site not specified
CPT/HCPCS: 81001; 87086; 87088; 87186